=== PATIENT | female | born 1955 | race Caucasian/White ===

== ENCOUNTER → 2019-01-16 09:01 | Outpatient (CLI) | payer MEDICARE, OTHER, SELFPAY ==
--- NOTE | 2019-01-16 09:04 | XR_ITS ---
XR DEXA axial skeleton HISTORY: ITS.REASON: SCCREENING FOR OSTEOPOROSIS,POST MENOPAUSAL ORDERING PHYSICIAN: Sierra Olvera MD PATIENT AGE: 63 years COMPARISON: None FINDINGS: The BMD measured at the Right femoral neck is 0.970 g/cm squared with a T score of -0.5. This is considered Normal according to the World Health Organization criteria. Fracture risk is Low. L1 L4 density has T score 1.6 which is normal.. IMPRESSION: Normal bone density with low fracture risk. Suggest follow-up exam January 2021
== END ==
PROVIDERS: PCP Family Medicine; Visit Provider Emergency Medicine
DX: Z78.0 Asymptomatic menopausal state (principal); Z13.820 Encounter for screening for osteoporosis
CPT/HCPCS: 77080

== ENCOUNTER → 2019-10-10 09:49 | Outpatient (CLI) | payer MEDICARE, OTHER, SELFPAY | PROVIDERS: PCP Family Medicine; Visit Provider Physician Assistant | DX: R00.2 Palpitations (principal) | CPT/HCPCS: 93225; 93226 ==

== ENCOUNTER → 2019-10-30 07:51 | Outpatient (CLI) | payer MEDICARE, OTHER, SELFPAY ==
--- NOTE | 2019-10-30 07:53 | MM_ITS ---
PROCEDURE: MM DIG SCREENING MAMM BI W/CAD CLINICAL INDICATION: SCREENING There is a history of breast cancer in the patient's paternal aunt. COMPARISON: [facility] DIG MAMM-SCREEN [place] from 09/19/2013 [facility] DIG MAMM-SCREEN [place] from 11/07/2014 [facility] DIG MAMM-SCREEN [place] from 12/30/2015 TECHNIQUE: Standard CC and MLO images and 3D Tomosynthesis was obtained. R2 CAD reviewed. FINDINGS: Scattered fibroglandular densities are seen in both breasts on a background of fatty breast parenchyma. There are a few benign-appearing microcalcifications in each breast. There is stable asymmetric glandular tissue upper outer quadrant left breast. There is no suspicious lesion and no suspicious microcalcifications. Rafal images were reviewed. IMPRESSION: Fibrofatty parenchyma with no suspicious lesions seen BI-RAD Category: 2 Benign Finding(s) FOLLOW-UP: 1YR 1 Year Follow-up (A letter has been sent to the patient regarding results of the study.) Dictated by: Dr. Derek Humphrey MD 10/30/2019 12:[address] Derek Humphrey MD in [place] 10/30/2019 12:18
== END ==
PROVIDERS: PCP Family Medicine; Visit Provider Physician Assistant
DX: Z12.31 Encounter for screening mammogram for malignant neoplasm of breast (principal)
CPT/HCPCS: 77063; 77067

== ENCOUNTER → 2019-10-30 08:02 | Outpatient (CLI) | payer SELFPAY ==
--- NOTE | 2019-10-30 08:03 | CT_ITS ---
PROCEDURE: CT HEART W CALCIUM SCORE CLINICAL HISTORY: dyspnea, chest pain COMPARISON: No exams were available for comparison TECHNIQUE: Axial images obtained with sagittal and coronal reformats. All CT scans at the facility use one or more dose reduction, viz: automated exposure control, ma/kV adjustment per patient size (including targeted exams where dose is matched to indication, i.e. head), or iterative reconstruction technique. FINDINGS: The coronary artery calcium score is 7 indicating minimal calcific plaque burden with low cardiovascular disease risk Incidental findings include evidence of old granulomatous disease. There is mild thickening of the distal esophagus and there is a calcified granuloma in the right lung base. IMPRESSION: The coronary artery calcium score is 7 indicating minimal calcific plaque burden with low cardiovascular disease risk Dictated by: Zane Edouard MD 11/01/2019 09:07 Electronically signed by Zane Edouard MD in [place] 11/01/2019 09:07
== END ==
PROVIDERS: PCP Physician Assistant; Visit Provider Internal Medicine Cardiovascular Disease
DX: Z13.6 Encounter for screening for cardiovascular disorders (principal); E11.69 Type 2 diabetes mellitus with other specified complication; E78.5 Hyperlipidemia, unspecified; I10 Essential (primary) hypertension; I45.10 Unspecified right bundle-branch block; R00.2 Palpitations; R06.83 Snoring; R07.9 Chest pain, unspecified; R40.0 Somnolence; R51 Headache; R94.31 Abnormal electrocardiogram [ECG] [EKG]; Z87.891 Personal history of nicotine dependence
CPT/HCPCS: 75571

== ENCOUNTER → 2019-11-02 08:01 | Outpatient (CLI) | payer MEDICARE, OTHER, SELFPAY ==
[2019-11-02 11:21] LABS: Anion Gap 8.6 mEq/L (5-15); Blood Urea Nitrogen 21 mg/dl (7-17); Calcium 9.7 mg/dl (8.4-10.2); Carbon Dioxide 24 mmol/L (22.0-30.0); Chloride 98 mmol/L (98-107); Estimated Glomerular Filt Rate 72 ml/min (>60); GFR (African American) 87 ML/MIN (>60); Glucose 166 mg/dl (74-100); Potassium 4.6 mmoL/L (3.5-5.1); Sodium 126 mmol/L (136-145)
[2019-11-02 11:29] LABS: NT Pro Brain Natriuretic Pep. 22.6 pg/mL (0-125)
== END ==
PROVIDERS: Visit Provider Internal Medicine Cardiovascular Disease
DX: R00.2 Palpitations (principal); R07.9 Chest pain, unspecified; E11.69 Type 2 diabetes mellitus with other specified complication; E78.5 Hyperlipidemia, unspecified; I10 Essential (primary) hypertension; I45.10 Unspecified right bundle-branch block; R06.83 Snoring; R51 Headache; R94.31 Abnormal electrocardiogram [ECG] [EKG]; Z87.891 Personal history of nicotine dependence; R06.09 Other forms of dyspnea; Z79.84 Long term (current) use of oral hypoglycemic drugs
CPT/HCPCS: 36415; 80048; 83880

== ENCOUNTER → 2019-11-06 11:00 | Outpatient (CLI) | payer MEDICARE, OTHER, SELFPAY ==
--- NOTE | 2019-11-07 11:46 | PC.NURSE ---
Patient registered for home sleep study - took device home and reported she could not do it and will not repeat test - no charge for test.
== END ==
PROVIDERS: PCP Family Medicine; Visit Provider Internal Medicine Cardiovascular Disease
DX: G47.33 Obstructive sleep apnea (adult) (pediatric) (principal); R06.83 Snoring; R40.0 Somnolence

== ENCOUNTER → 2019-11-09 06:18 | Outpatient (CLI) | payer MEDICARE, OTHER, SELFPAY ==
--- NOTE | 2019-11-09 06:18 | NM_ITS ---
APPROVED REPORT Exam: Nuclear Stress Test Indication: htn, d.m., hyperlipidemia, fm. hx, sob, fatigue Patient Location: Outpatient Stress Tech: Jenny Stratton [place] Tech:Lolly Doss ARRChana RT(R)(N) Ht: 5 ft 6 in Wt: 213 lbs Bra Size: 42DD HR: 72 bpm BP: 137/77 mmHg BSA: 2.05 m2 BMI: 34.3 History: htn, d.m., hyperlipidemia, fm. hx, sob, fatigue Procedure: Patient exercised on Keagan protocol 5:00 minutes and sec, resting heart rate 72 bpm, resting blood pressure 137/77 mmHg, with exercise maximum heart rate achived was 150 bpm which is Greater than 85 % of the maximum predicted heart rate and blood pressure was 154/82 mmHg. Test was stopped due to Shortness of breath. Patient denied any complaint of chest pain. Patient has Adequate exercise capacity, achieved 7.0 METs of workload on treadmill, the blood pressure response to exercise was Adequate. Electrocardiogram Resting electrocardiogram showed sinus rhythm right ventricular conduction delay, with exercise there is less than 1.[address] segment depression noted from the baseline EKG. The EKG portion of the exercise Myoview is negative for ischemia. Cardiac Stress and Resting SPECT Images: Cardiac Stress and Resting SPECT images were obtained using technetium 99m Myoview 32.8 mCi stress and 10.32 mCi at rest. Gated SPECT with analysis of segmental wall motion and calculation of the ejection fraction also done. Cardiac stress and resting SPECT images show decreased tracer activity involving the anterior anterior apical and apical wall which improves on the resting images suggestive of reversible ischemia, computer derived ejection fraction is 56% with no regional wall motion abnormality, right ventricle is normal size and contractility. This study is technically limited due to patient's body habitus. Conclusion: 1. The EKG portion of the exercise Myoview is negative for ischemia, patient has adequate exercise capacity achieved 7 mets of workload on treadmill, the blood pressure response to exercise was adequate, there was no exercise-induced chest discomfort. Test was stopped due to shortness of breath. 2. Scintigraphic evidence of mild reversible ischemia involving the anterior anterior apical and apical wall, computer derived ejection fraction is 56% with no regional wall motion abnormality, right ventricle is normal size and contractility. 3. Abnormal exercise Myoview study. Electronically signed by : Krishna Holder, 11/09/2019 13:52:54
--- NOTE | 2019-11-09 06:18 | CA_ITS ---
APPROVED REPORT EXAM: Comprehensive 2D, Doppler, and color-flow Echocardiogram Electronic Prepress Operator: Opal Hernandez RDCS Ht: 5 ft 6 in Wt: 212lbs BSA: 2.05 BP: 152/78 mmHg Indications: Abnormal ECG, Shortness of Breath, Palpitations, Hypertension/HDD BUBBLE STUDY Echo Enhancing Agent Indication: Rule Out Septal Defect Agent(s) / Amount(s) Used: Agitated Saline cc Comments: APPEARS NEGATIVE 2D Dimensions LVOT 1.81 cm (M/F) 1.5-2.5 M-Mode Dimensions RVDd 2.28 cm (0.9-2.6) LVDd 5.02 cm (3.5-5.7) LVDs 3.65 cm (3.5-5.7) IVSd 0.91 cm (0.6-1.1) PWd 0.99 cm (0.6-1.1) EF (Teich) 52.80% FS 27.30% EDV (Teich) 119.30 mL ESV (Teich) 56.30 mL LV Diastology E/A Ratio 0.68 Mitral Valve MV A Velocity 71.00 (40-130 cm/s) Left Ventricle Left atrium is mildly enlarged, left ventricle is normal size, mild concentric left ventricular hypertrophy, visually estimated ejection fraction 55% with no regional wall motion abnormality. Grade 1 diastolic dysfunction seen without tissue Doppler evidence of raise left atrial pressure. Right Ventricle Right atrium and right ventricle is normal size and contractility. Atria Intra-atrial septum is intact, there is no flow across the interatrial septum, agitated saline contrast study fails to identify intracardiac shunt. Aortic Valve Aortic valve is minimally thickened and fibrosed, there is no aortic stenosis or aortic insufficiency. Mitral Valve Mitral valve is grossly normal, there is mild mitral regurgitation. Tricuspid Valve Tricuspid valve is grossly normal, there is mild tricuspid regurgitation, tricuspid regurgitation jet velocity is inadequate for calculation of the right ventricular systolic pressure. Pulmonic Valve Pulmonic valve is poorly visualized. Great Vessels Aortic root is normal size. Pericardium No significant pericardial effusion noted. Conclusion 1. Mildly enlarged left atrium, normal left ventricular size, mild concentric left ventricular hypertrophy, visually estimated ejection fraction 55% with no regional wall motion abnormality, grade 1 diastolic dysfunction seen without tissue Doppler evidence of raise left atrial pressure. 2. Mild mitral and tricuspid regurgitation. 3. Agitated saline contrast study fails to identify intracardiac shunt. 4. No significant pericardial effusion noted. Electronically signed by : Krishna Holder, 11/09/2019 14:43:13
--- NOTE | 2019-11-09 06:28 | CA_ITS ---
APPROVED REPORT Exam: Exercise Treadmill Technologist: Irena Salazar, Ht: 5 ft 6 in Wt: 213 lbs BSA: 2.05 m2 HR: 72 bpm BP: 137/77 mmHg Rhythm: NORMAL SINUS RHYTHM,INCOMPLETE RBBB Medical History Medical History: Diabetic ??? Noninsulin, HTN, Hyperlipidemia Medications: Metoprolol,,,,, Metformin,,,,, Losartan,,,,, Atorvastatin,,,,, Glipizide,,,,, Allergies: CIFDINIR Cardiac Risk Factors: HTN, Hyperlipidemia, Diabetes (non-insulin, FHX of CAD Stress Test Details Test: Keagan HR Resting HR: 84 bpm Max Heart Rate (APMHR): 154 bpm Max HR Achieved: 150 bpm Target HR (85% APMHR): 130 bpm % of APMHR: 97 Recovery HR: 88 bpm BP Resting BP: 137.0/77.0 mmHg Max BP: 166.0/56.0 mmHg Recovery BP: 166.0/56.0 mmHg ECG Resting ECG: NORMAL SINUS RHYTHM,INCOMPLETE RBBB Clinical Reason for Termination: Dyspnea Exercise duration: 05:01 min Highest Stage Achieved: Exercise capacity: 7.0 METs Stress ECG Conclusion EXERCISED 5:00 WITH MAX HEART RATE 150 BPM. METS = 7.0. TEST STOPPED DUE TO SOA. NO CHEST PAIN. POSITIVE FOR PVC'S,ONE COUPLET AT PEAK STRESS. <1.5MM ST UPSLOPING SEGMENT DEPRESSION. ABNORMAL TEST. POSITIVE PVC'S/COUPLET. POOR EXERCISE TOLERANCE Test Summary REST . . . . . . . Standing REST . . . . . . . Sitting REST 05:51 0.0 0.0 84 . 137/ 77 . . Stage 1 01:00 10.0 1.7 101 . . . . Stage 1 02:00 10.0 1.7 113 . . . . Stage 1 03:00 10.0 1.7 124 . 154/ 82 . . Stage 2 . . . . . . . Stage held Stage 2 01:00 12.0 2.5 138 . . . . Stage 2 . . . . . . . Cardiolite injected Stage 2 02:00 12.0 2.5 148 . . . . Stage 2 . . . . . . . Stage resumed Stage 2 02:01 12.0 2.5 148 . . . Stop exercise at 05:01 RECOVERY 01:00 0.0 0.0 123 . . . . RECOVERY 02:00 0.0 0.0 102 . . . . RECOVERY 03:00 0.0 0.0 93 . 166/ 56 . . RECOVERY 04:00 0.0 0.0 88 . 166/ 56 . . RECOVERY 05:00 0.0 0.0 85 . 166/ 56 . . RECOVERY 06:00 0.0 0.0 89 . 166/ 56 . . RECOVERY 07:00 0.0 0.0 83 . 131/ 72 . . RECOVERY 08:00 0.0 0.0 0 . 131/ 72 . . RECOVERY 08:24 0.0 0.0 0 . 131/ 72 . . Electronically signed by : Krishna Holder, 11/09/2019 13:40:30
--- NOTE | 2019-11-09 08:42 | HMH.ITSHM ---
Current Home Medications as stated by this patient Nathen Marshall or wine sales representative. [] METOPROLOL LOSARTSAN MELATONIN GLIPIZIDE ATORVASTATIN ASP LEVOTHYROXINE
== END ==
PROVIDERS: PCP Family Medicine; Visit Provider Internal Medicine Cardiovascular Disease
DX: E11.69 Type 2 diabetes mellitus with other specified complication (principal); E78.5 Hyperlipidemia, unspecified; I10 Essential (primary) hypertension; I45.10 Unspecified right bundle-branch block; R00.2 Palpitations; R06.83 Snoring; R07.9 Chest pain, unspecified; R51 Headache; Z87.891 Personal history of nicotine dependence; R94.31 Abnormal electrocardiogram [ECG] [EKG]; Z79.84 Long term (current) use of oral hypoglycemic drugs; R06.00 Dyspnea, unspecified
CPT/HCPCS: 78452; 93017; 93306; A9502

== ENCOUNTER 2019-12-17 08:35 | Day surgery (SDC) | payer MEDICARE, OTHER, SELFPAY ==
[2019-12-17] VITALS (11 sets, daily range): BP systolic 100–161; BP diastolic 48–84; PULSE 57–74; RESP 16–18; TEMP 36.6; O2SAT 92–95; BMI 34.7
--- NOTE | 2019-12-17 | IR_ITS ---
APPROVED REPORT Patient Location: Outpatient Meeting Specialist: ALEJA Vale RT (R) PROCEDURES Left heart catheterization Left ventriculogram Selective coronary angiogram INDICATION Abnormal Myoview, Angina pectoris, Informed consent was obtained prior to the procedure. COMPLICATIONS none Estimated Blood Loss: less than 10 mls TECHNIQUE One percent lidocaine used to anesthetize the right anterior aspect of the wrist. The right radial artery was accessed via the Seldinger technique. A 6 Montserratian sheath was placed in the right radial artery. 2.5 mg of verapamil, 800 mcg of nitroglycerin, 1mg Lidocaine and 5000 U Heparin were given through the arterial sheath. The trap catheter and JL 3 6 Montserratian catheter were used to perform left heart catheterization, left ventriculogram and selective coronary angiogram. At the end of the procedure the sheath was removed good hemostasis was achieved using Traclet band, patient was transferred to the postop holding area in stable condition. ANGIOGRAPHIC RESULTS The left main artery Normal The left anterior descending artery Has proximal and mid vessel 20 and 30% stenoses The circumflex artery Is a large-caliber nondominant vessel and normal The right coronary artery Dominant normal The CHAVIS ventriculogram reveals Preserved at 55% The left ventricular end-diastolic pressure Elevated at 30 mmHg IMPRESSION Wjg-[id number] coronary disease Preserved ejection fraction Moderate to severely elevated LVEDP consistent with advanced diastolic dysfunction PLAN 1. Standard therapy for ischemic heart disease 2. LDL goal less than 55 3. Treatment of moderate to severe diastolic dysfunction using loop diuretics weight loss physical therapy. 4. Recommend sleep study Electronically signed by : Kristian Obando, 12/17/2019 12:13:03
[2019-12-17 09:15] LABS: Basophils # 0.1 K/mm3 (0-0.2); Basophils % 0.7 % (0.1-2.0); Eosinophils # 0.1 K/mm3 (0.0-0.4); Eosinophils % 1.5 % (0.1-12.0); Hemoglobin 12.8 g/dL (14.1-18.0); Lymphocytes # 2.8 K/mm3 (0.7-4.5); Lymphocytes % 31.1 % (10-50); Mean Corpuscular HGB Conc 32.9 g/dL (31.8-35.4); Mean Corpuscular Hemoglobin 29.1 pg (27.0-31.2); Mean Corpuscular Volume 88.5 fl (81-94); Mean Platelet Volume 8.8 fl (7.4-10.4); Monocytes # 0.6 K/mm3 (0.1-1.0); Monocytes % 6.7 % (1.7-9.3); Neutrophils # 5.4 K/mm3 (1.8-7.8); Neutrophils % 59.9 % (37.0-80.0); Platelet Count 251 K/mm3 (142-424); Red Blood Count 4.41 M/mm3 (4.60-6.20); Red Cell Distribution Width 13.9 % (11.5-17.5); White Blood Count 9.1 K/mm3 (4.8-10.8)
[2019-12-17 09:43] LABS: Chloride 103 mmol/L (98-107); Potassium 3.9 mmoL/L (3.5-5.1); Sodium 138 mmol/L (136-145)
[2019-12-17 09:46] LABS: Anion Gap 12.9 mEq/L (5-15); Blood Urea Nitrogen 16 mg/dl (7-20); Calcium 9.2 mg/dl (8.4-10.2); Carbon Dioxide 26 mmol/L (22.0-30.0); Creatinine Clearance Estimated 85 mL/min (50-200); Estimated Glomerular Filt Rate 113 ml/min (>60); GFR (African American) 137 ML/MIN (>60); Glucose 181 mg/dl (74-100)
== END 2019-12-17 15:00 | disposition home or self-care (01) ==
LOC: CATHLAB 08:38
PROVIDERS: PCP Family Medicine; Visit Provider Internal Medicine
DX: I25.118 Atherosclerotic heart disease of native coronary artery with other forms of angina pectoris (principal); I11.0 Hypertensive heart disease with heart failure; I50.30 Unspecified diastolic (congestive) heart failure; E11.9 Type 2 diabetes mellitus without complications; Z79.84 Long term (current) use of oral hypoglycemic drugs; E03.9 Hypothyroidism, unspecified; Z88.8 Allergy status to other drugs, medicaments and biological substances; Z79.82 Long term (current) use of aspirin; Z79.899 Other long term (current) drug therapy
CPT/HCPCS: 80048; 85025; 93458; 99152; C1725; C1769; J1644; Q9967

== ENCOUNTER → 2019-12-31 09:48 | Outpatient (CLI) | payer MEDICARE, OTHER, SELFPAY ==
--- NOTE | 2019-12-31 10:01 | CT_ITS ---
PROCEDURE: CT HEAD/BRAIN WO/W CON CLINICAL INDICATION: headache Right-sided headache COMPARISON: No exams were available for comparison TECHNIQUE: IV Contrast: 100ML OPITRAY 320 Axial images obtained. All CT scans at the facility use one or more dose reduction, viz: automated exposure control, ma/kV adjustment per patient size (including targeted exams where dose is matched to indication, i.e. head), or iterative reconstruction technique. FINDINGS: No midline shift, mass effect, intracranial hemorrhage, hydrocephalus, or extra-axial fluid collection is evident. No enhancing lesions are apparent. The calvarium has an unremarkable appearance. No mastoid effusion. No sinus air-fluid level IMPRESSION: Negative CT head without and with contrast. No acute intracranial findings. Dictated by: Zane Edouard MD 12/31/2019 16:26 Electronically signed by Zane Edouard MD in [place] 12/31/2019 16:26
[2019-12-31 10:14] LABS: Anion Gap 14.5 mEq/L (5-15); Blood Urea Nitrogen 17 mg/dl (7-17); Calcium 9.5 mg/dl (8.4-10.2); Carbon Dioxide 28 mmol/L (22.0-30.0); Chloride 99 mmol/L (98-107); Estimated Glomerular Filt Rate 72 ml/min (>60); GFR (African American) 87 ML/MIN (>60); Glucose 164 mg/dl (74-100); Potassium 4.5 mmoL/L (3.5-5.1); Sodium 137 mmol/L (136-145)
== END ==
PROVIDERS: PCP Family Medicine; Visit Provider Nurse Practitioner Family
DX: I25.10 Atherosclerotic heart disease of native coronary artery without angina pectoris (principal); I51.89 Other ill-defined heart diseases; R51 Headache
CPT/HCPCS: 36415; 70470; 80048; Q9967

== ENCOUNTER → 2020-02-04 10:25 | Outpatient (CLI) | payer MEDICARE, OTHER, SELFPAY ==
[2020-02-04 12:11] LABS: Coronavirus 19 IgG Antibody Negative (Negative); Coronavirus 19 IgM Antibody Negative (Negative)
== END ==
PROVIDERS: Physician Assistant; Visit Provider Internal Medicine Cardiovascular Disease
DX: Z01.818 Encounter for other preprocedural examination (principal)
CPT/HCPCS: 36415; 86328

== ENCOUNTER → 2020-02-05 20:11 | Outpatient (CLI) | payer MEDICARE, OTHER, SELFPAY | PROVIDERS: PCP Family Medicine; Visit Provider Nurse Practitioner Family | DX: I27.20 Pulmonary hypertension, unspecified (principal); R94.30 Abnormal result of cardiovascular function study, unspecified; R06.83 Snoring; R40.0 Somnolence; G47.30 Sleep apnea, unspecified | CPT/HCPCS: 95810 ==

== ENCOUNTER → 2021-01-07 08:16 | Outpatient (CLI) | payer MEDICARE, OTHER, SELFPAY ==
--- NOTE | 2021-01-07 08:19 | MM_ITS ---
PROCEDURE INFORMATION: Exam: MG Screening 3D Mammography Exam date and time: 01/07/2021 8:19 AM Age: 65 years old Clinical indication: Encounter for screening mammogram for malignant neoplasm of breast . Family history of breast carcinoma TECHNIQUE: Imaging protocol: Screening tomosynthesis and 2D mammography including computer-aided detection (CAD) when performed. COMPARISON: 1. MG MM DIG SCREENING MAMM BI W/CAD 10/30/2019 8:03 AM 2. MG DMSB DIG MAMM-SCREEN [place] 12/30/2015 11:17 AM 3. MG DMSB DIG MAMM-SCREEN [place] 11/07/2014 4:30 PM FINDINGS: MAMMOGRAPHY: Breast composition: There are scattered areas of fibroglandular density. Mass: No new suspicious masses. Architectural distortion: No suspicious distortion. Calcifications: No suspicious calcifications. Asymmetric density: None. Skin thickening: None. Axillary adenopathy: None. IMPRESSION: No mammographic evidence of malignancy. Annual screening is recommended unless otherwise clinically indicated. ASSESSMENT: BI-RADS Category 1: Negative
== END ==
PROVIDERS: PCP Family Medicine; Visit Provider Family Medicine
DX: Z12.31 Encounter for screening mammogram for malignant neoplasm of breast (principal)
CPT/HCPCS: 77063; 77067

== ENCOUNTER → 2021-10-05 10:37 | Outpatient (CLI) | payer MEDICARE, OTHER, SELFPAY | PROVIDERS: Visit Provider Nurse Practitioner | DX: U07.1 COVID-19 (principal) | CPT/HCPCS: C9803; U0003; U0005 ==

== ENCOUNTER → 2022-02-05 13:49 | Outpatient (CLI) | payer MEDICARE, OTHER, SELFPAY | PROVIDERS: PCP Family Medicine; Visit Provider Internal Medicine Cardiovascular Disease | DX: E11.9 Type 2 diabetes mellitus without complications (principal); E78.5 Hyperlipidemia, unspecified; G47.33 Obstructive sleep apnea (adult) (pediatric); I10 Essential (primary) hypertension; I25.10 Atherosclerotic heart disease of native coronary artery without angina pectoris; I63.9 Cerebral infarction, unspecified; R06.00 Dyspnea, unspecified; R94.30 Abnormal result of cardiovascular function study, unspecified; Z87.891 Personal history of nicotine dependence; Z79.84 Long term (current) use of oral hypoglycemic drugs | CPT/HCPCS: 93270 ==

== ENCOUNTER → 2022-02-11 12:48 | Outpatient (CLI) | payer MEDICARE, OTHER, SELFPAY ==
--- NOTE | 2022-02-11 12:55 | CA_ITS ---
FINAL REPORT TECHNIQUE: Color Doppler, duplex Doppler and puckett scale sonography of the bilateral neck vasculature was performed. Velocities were measured in the carotid arteries. Stenosis evaluation based on velocity criteria. CLINICAL HISTORY: Dysphasia, stroke, CAD, Diastolic dysfunction FINDINGS: The peak systolic velocity of the right common carotid artery is 96 cm/sec and internal carotid artery 110 cm/sec. The diastolic velocity in the internal carotid artery is 30 cm/sec. The ICA/CCA ratio is 1.5. Visually, a small amount of plaque is seen. These findings are consistent with less than 50% stenosis. The external carotid artery is patent. The right vertebral artery is patent with antegrade flow. The peak systolic velocity of the left common carotid artery is 86 cm/sec and internal carotid artery 88 cm/sec. The diastolic velocity in the internal carotid artery is 99 cm/sec. The ICA/CCA ratio is 1.2. Visually, a small amount of plaque is seen. These findings are consistent with less than 50% stenosis. The external carotid artery is patent. The left vertebral artery is patent with antegrade flow. IMPRESSION: Less than 50% carotid stenosis. Bilateral patent vertebral arteries. If indicated, CTA or MRA could further evaluate. Reviewed, Interpreted and Dictated by Jordi Wade III, MD Transcribed by Rupa iDas Authenticated and [facility]
--- NOTE | 2022-02-11 12:55 | CA_ITS ---
APPROVED REPORT EXAM: Comprehensive 2D, Doppler, and color-flow Echocardiogram Religious Studies Professor: Letty Simon RVT Ht: 5 ft 6 in Wt: 208lbs BSA: 2.03 BP: 11/65 mmHg Indications: CVA,CAD,DD,ABN EKG,DM,EX SMOKER,OBESITY,FATIGUE,HTN,HLD,GERD,HX COVID 2D Dimensions LVOT 2.15 cm (M/F) 1.5-2.5 LA Volume 28.30 mL LA Volume Index 13.94 mL/m2 (M/F) 16-34 M-Mode Dimensions RVDd 1.89 cm (0.9-2.6) LA Diam 3.57 cm (1.9-4.0) LVDd 4.75 cm (3.5-5.7) Ao Diam 2.71 cm (2.0-3.7) LVDs 2.89 cm (3.5-5.7) IVSd 0.71 cm (0.6-1.1) PWd 0.93 cm (0.6-1.1) EF (Teich) 69.60% FS 39.20% EDV (Teich) 104.90 mL TAPSE 2.66 (<1.7) ESV (Teich) 31.90 mL LV Diastology E Decel Time 233.00 (160-240 msec) E/A Ratio 0.8 MED E' 6.20 (< 7 cm/sec) E'/MED E' Ratio 10.10 (>14) LAT E' 7.70 (<10 cm/sec) E/LAT E' Ratio 8.13 (>14) Aortic Valve AO Peak GR. 11.20 mmHg Mitral Valve MV E Max Jagdish. 63.00 (40-130 cm/s) MV A Velocity 80.00 (40-130 cm/s) E/A Ratio 0.78 MV Decel. Time 233.00 (160-240 ms) MV PHT 68.00 ms Pulmonary Valve PV Peak Velocity 101.00 (50-150 cm/s) Tricuspid Valve TR P. Velocity 226.00 cm/s RAP Estimate 10.00 mmHg RVSP 30.50 mmHg Left Ventricle Left atrium is mildly enlarged, left ventricle is normal size, mild concentric left ventricular hypertrophy, estimated ejection fraction 55% with no regional wall motion abnormality, grade 1 diastolic dysfunction seen without tissue Doppler evidence of raise left atrial pressure. Right Ventricle Right atrium and right ventricle are normal size and contractility. Aortic Valve Aortic valve is minimally thickened and fibrosed there is no aortic stenosis or aortic insufficiency. Mitral Valve Mitral valve grossly normal, there is trace mitral regurgitation. Tricuspid Valve Tricuspid valve is grossly normal, there is trace tricuspid regurgitation, tricuspid regurgitation jet velocity is inadequate for calculation of the right ventricular systolic pressure. Pulmonic Valve Pulmonic valve is poorly visualized. Great Vessels Aortic root is normal size. Inferior vena cava normal size with normal inspiratory collapse. Pericardium No significant pericardial effusion noted. Conclusion 1. Mildly enlarged left atrium, normal left ventricular size, mild concentric left ventricular hypertrophy, estimated ejection fraction 55% with no regional wall motion abnormality, grade 1 diastolic dysfunction seen without tissue Doppler evidence of raise left atrial pressure. 2. Trace mitral and tricuspid regurgitation. 3. No significant pericardial effusion. 4. Inferior vena cava normal size with normal inspiratory collapse. Electronically signed by : Krishna Holder MD 02/11/2022 18:27:48
== END ==
PROVIDERS: PCP Family Medicine; Visit Provider Internal Medicine Cardiovascular Disease
DX: E11.9 Type 2 diabetes mellitus without complications (principal); E78.5 Hyperlipidemia, unspecified; G47.33 Obstructive sleep apnea (adult) (pediatric); I10 Essential (primary) hypertension; I25.10 Atherosclerotic heart disease of native coronary artery without angina pectoris; R06.00 Dyspnea, unspecified; R94.30 Abnormal result of cardiovascular function study, unspecified; Z87.891 Personal history of nicotine dependence; R29.90 Unspecified symptoms and signs involving the nervous system; Z79.84 Long term (current) use of oral hypoglycemic drugs; I63.89 Other cerebral infarction
CPT/HCPCS: 93306; 93880

== ENCOUNTER → 2022-03-08 10:24 | Outpatient (CLI) | payer MEDICARE, OTHER, SELFPAY ==
--- NOTE | 2022-03-08 10:27 | MM_ITS ---
PROCEDURE INFORMATION: Exam: MG Bilateral Screening 3D Mammography Exam date and time: 03/08/2022 10:28 AM Age: 66 years old Clinical indication: Screening examination. Her paternal aunt had breast cancer. TECHNIQUE: Imaging protocol: Bilateral Screening tomosynthesis and 2D mammography including computer-aided detection (CAD) when performed. COMPARISON: 1. MG MM DIG SCREENING MAMM BI W/CAD 01/07/2021 8:34 AM 2. MG MM DIG SCREENING MAMM BI W/CAD 10/30/2019 8:03 AM 3. MG DMSB DIG MAMM-SCREEN [place] 12/30/2015 11:17 AM FINDINGS: MAMMOGRAPHY: Breast composition: There are scattered areas of fibroglandular density. Mass: No suspicious mass. Architectural distortion: None. Calcifications: No suspicious calcifications. Asymmetric density: None. Skin thickening: None. Axillary adenopathy: None. IMPRESSION: No mammographic evidence of malignancy. Annual screening is recommended unless otherwise clinically indicated. ASSESSMENT: BI-RADS Category 1: Negative
== END ==
PROVIDERS: PCP Family Medicine; Visit Provider Family Medicine
DX: Z12.31 Encounter for screening mammogram for malignant neoplasm of breast (principal)
CPT/HCPCS: 77063; 77067

== ENCOUNTER 2022-06-07 16:04 | Emergency (ER) | payer MEDICARE, OTHER, SELFPAY ==
[2022-06-07 16:40] VITALS: BP 124/75; PULSE 81; RESP 20; TEMP 36.8; O2SAT 98; BMI 32.3
--- NOTE | 2022-06-07 16:51 | EXP.UTC ---
Discharge Plan Disposition Patient Disposition: Home, Self-Care Condition: Good Prescriptions Prescriptions: No Action atorvastatin 40 mg tablet 80 mg PO DAILY Label Comments: TAKE 1 TABLET BY MOUTH ONCE A DAY AT BEDTIME diphenhydramine HCl [Allergy (diphenhydramine)] 25 mg tablet 25 mg PO HS losartan 100 mg tablet 100 mg PO DAILY Qty: 90 5RF metoprolol succinate [Toprol XL] 50 mg tablet extended release 24 hr 50 mg PO QHS Qty: 90 3RF cholecalciferol (vitamin D3) 25 mcg (1,000 unit) capsule 25 mcg PO DAILY vitamin B lcwxte-F-ES-zinc cit 0.8-50 mg tablet 1 tab PO DAILY aspirin 81 mg tablet,delayed release (DR/EC) 81 mg PO DAILY omega 9-nhb-sxr-fish oil [Fish Oil] 1,000 mg (120 mg-180 mg) capsule 1 cap PO DAILY lysine 1,000 mg tablet 1,000 mg PO DAILY esomeprazole magnesium [Nexium] 20 mg capsule,delayed release(DR/EC) 20 mg PO DAILY melatonin 10 mg capsule 10 mg PO HS PRN metformin 1,000 mg tablet 1,000 mg PO BID Label Comments: TAKE 1 TABLET BY MOUTH TWICE A DAY ascorbic acid (vitamin C) 1,000 mg tablet 1 g PO DAILY levothyroxine 25 mcg tablet 50 mcg PO DAILY Label Comments: take 1 tablet by mouth once daily glipizide 5 mg tablet 10 mg PO DAILY Label Comments: TAKE 1 TABLET BY MOUTH ONCE DAILY spironolactone 25 mg tablet 25 mg PO DAILY Qty: 90 3RF furosemide 20 mg tablet 20 mg PO DAILY Qty: 90 3RF Referrals Follow up/Referrals: Timothy Asencio MD [Primary Care Provider] - See instructions Activity Restrictions/Add. Instructions Additional Instructions/Restrictions: *Monitor Temp, Over the counter Motrin or Tylenol as directed/as needed Tylenol every 4 hours and Motrin every 6 hours (as long as your family doctor has told you that you can take it) for fever or pain. and straight to ER if unable to lower temp less than 101.0 after medication given *Warm salt water gargles may help to soothe the throat *Throat Lozenges? *Warm fluids like tea with honey may help to soothe the throat? *Sleep elevated *Humidifier/Vaporizer Follow up IMMEDIATELY for new or worsening symptoms or no Noticeable improvement over the next 48-72 hours. 911 for difficulty breathing or swallowing You were tested for today for COVID19 your test result should be back in the next 24-48 hours, you may check your results on the [facility] My Health Portal Make sure to take your Vitamins Vit. C Vit D and Zinc if you can take them Clinical Impressions Clinical Impression: Encounter for laboratory testing for COVID-19 virus Stand Alone Forms Stand Alone Forms: Work/School Release Instructions Patient Instructions: Coronavirus Disease 2019, COVID-19 Viral Test, Preventing the Spread of Coronavirus Discharge Instructions Discharge ED Provider: Lily Oakley [facility] General Stated complaint: covid test Time Seen by Provider: 06/07/22 16:51 History of Present Illness Provider Complaint: Patient states that she has been with her sister that had a positive home test for COVID so she wanted to get tested States that she thinks she may have had some symptoms last week but not having any right now Related Data Home Medications Medication Instructions Recorded Confirmed aspirin 81 mg tablet,delayed 81 mg PO DAILY 10/05/19 03/26/22 release esomeprazole magnesium 20 mg 20 mg PO DAILY 10/05/19 03/26/22 capsule,delayed release (Nexium) lysine 1,000 mg tablet 1,000 mg PO DAILY 10/05/19 03/26/22 melatonin 10 mg capsule 10 mg PO HS PRN 10/05/19 03/26/22 omega 6-dhu-woa-fish oil 1,000 mg 1 cap PO DAILY 10/05/19 03/26/22 (120 mg-180 mg) capsule (Fish Oil) vitamin B complex with C-folic 1 tab PO DAILY 10/05/19 03/26/22 acid 0.8 mg-zinc citrate 50 mg tablet ascorbic acid (vitamin C) 1,000 mg 1 g PO DAILY 10/26/19 03/26/22 tablet metformin 1,000 mg tablet 1,000 mg PO BID
[2022-06-07 16:58] VITALS: BP 124/75; PULSE 81; RESP 20; TEMP 36.8; O2SAT 98
== END 2022-06-07 17:02 | disposition home or self-care (01) ==
PROVIDERS: Emergency Provider Nurse Practitioner; PCP Family Medicine
DX: U07.1 COVID-19 (principal); R07.9 Chest pain, unspecified; R00.2 Palpitations; R94.31 Abnormal electrocardiogram [ECG] [EKG]; E11.9 Type 2 diabetes mellitus without complications; R51.9 Headache, unspecified; I10 Essential (primary) hypertension; E78.5 Hyperlipidemia, unspecified; I45.10 Unspecified right bundle-branch block; G47.33 Obstructive sleep apnea (adult) (pediatric); Z79.84 Long term (current) use of oral hypoglycemic drugs; Z79.899 Other long term (current) drug therapy; Z88.8 Allergy status to other drugs, medicaments and biological substances; Z87.891 Personal history of nicotine dependence
CPT/HCPCS: 99213; C9803; G0463; U0003; U0005

== ENCOUNTER → 2023-01-20 14:16 | Outpatient (CLI) | payer MEDICARE, OTHER, SELFPAY ==
--- NOTE | 2023-01-20 14:28 | XR_ITS ---
FINAL REPORT CLINICAL HISTORY: LT ANKLE INJURY COMPARISON: None FINDINGS: Three views of the left ankle show no evidence of acute displaced fracture or dislocation of the visualized bony architecture. Mild degenerative changes. Mild calcaneal spurring. IMPRESSION: Degenerative changes with no acute bony abnormality. Reviewed, Interpreted and Dictated by Timothy Perla MD Transcribed by Neeru Baugh Authenticated and [facility]
--- NOTE | 2023-01-20 14:28 | XR_ITS ---
FINAL REPORT CLINICAL HISTORY: Rt 5th digit pain COMPARISON: None FINDINGS: Two views of the right 5th digit show an avulsion fracture of the dorsal plate of the 1st proximal phalanx base. There is up to 2 mm of displacement. There are moderate degenerative changes of the MCP and IP joints. IMPRESSION: Avulsion fracture of 1st proximal phalanx 5th digit. Reviewed, Interpreted and Dictated by Timothy Perla MD Transcribed by Neeru Baugh Authenticated and [facility]
--- NOTE | 2023-01-20 14:28 | XR_ITS ---
FINAL REPORT CLINICAL HISTORY: LT FOOT INJURY COMPARISON: None FINDINGS: Three views of the left foot show no evidence of acute displaced fracture or dislocation of the visualized bony architecture. There are scattered degenerative changes. IMPRESSION: No acute bony abnormality. Reviewed, Interpreted and Dictated by Timothy Perla MD Transcribed by Neeru Baugh Authenticated and [facility]
== END ==
PROVIDERS: PCP Family Medicine; Visit Provider Physician Assistant
DX: M25.572 Pain in left ankle and joints of left foot (principal); S99.912A Unspecified injury of left ankle, initial encounter; M25.531 Pain in right wrist; S69.91XA Unspecified injury of right wrist, hand and finger(s), initial encounter
CPT/HCPCS: 73140; 73610; 73630

== ENCOUNTER → 2023-02-04 11:55 | Outpatient (CLI) | payer MEDICARE, OTHER, SELFPAY ==
--- NOTE | 2023-02-04 12:05 | XR_ITS ---
FINAL REPORT CLINICAL HISTORY: pain of fifth digit of right hand after fall COMPARISON: 01/20/2023 FINDINGS: Right 5th finger Three views were obtained. There is avulsion fracture of the proximal dorsal aspect of the 5th middle phalanx. The bony alignment is stable. There are moderate degenerative changes. IMPRESSION: Fracture as above. Reviewed, Interpreted and Dictated by Jordi Wade III, MD Transcribed by Regine Carter Authenticated and [facility]
== END ==
PROVIDERS: PCP Family Medicine; Visit Provider Physician Assistant
DX: M79.644 Pain in right finger(s) (principal); S69.91XD Unspecified injury of right wrist, hand and finger(s), subsequent encounter
CPT/HCPCS: 73140

== ENCOUNTER → 2023-04-21 12:14 | Outpatient (CLI) | payer MEDICARE, OTHER, SELFPAY ==
[2023-04-21 13:43] LABS: Alanine Aminotransferase 22 U/L (12-78); Albumin Level 4.6 g/dl (3.5-5.0); Alkaline Phosphatase 98 U/L (38-126); Aspartate Amino Transferase 25 U/L (14-36); Bilirubin,Indirect 0.2 mg/dL (0.0-0.9); Bilirubin,Total 0.2 mg/dl (0.2-1.3); Bilirubin,Unconjugated 0.5 mg/dL (0.0-1.1); Chol/HDL Ratio 4.5 (1-3.5); Cholesterol 136 mg/dl (140-200); HDL Cholesterol 30 mg/dl (40-60); Total Protein,Serum 7.4 g/dl (6.3-8.2); Triglycerides 285 mg/dl (30-150); VLDL Cholesterol 57 mg/dL (0-40)
[2023-04-21 13:54] LABS: Direct LDL Cholesterol 64.85 mg/dL (100-129)
== END ==
PROVIDERS: PCP Family Medicine; Visit Provider Internal Medicine
DX: E11.9 Type 2 diabetes mellitus without complications (principal); E78.5 Hyperlipidemia, unspecified; I25.10 Atherosclerotic heart disease of native coronary artery without angina pectoris; R94.30 Abnormal result of cardiovascular function study, unspecified; Z79.84 Long term (current) use of oral hypoglycemic drugs
CPT/HCPCS: 36415; 80061; 80076

== ENCOUNTER → 2023-04-26 07:48 | Outpatient (CLI) | payer MEDICARE, OTHER, SELFPAY ==
--- NOTE | 2023-04-26 07:53 | MM_ITS ---
PROCEDURE INFORMATION: Exam: MG Bilateral Screening 3D Mammography Exam date and time: 04/26/2023 7:47 AM Age: 67 years old Clinical indication: Screening mammogram TECHNIQUE: Imaging protocol: Bilateral Screening tomosynthesis and 2D mammography including computer-aided detection (CAD) when performed. COMPARISON: 1. MG MM DIG SCREENING MAMM BI W/CAD 03/08/2022 10:28 AM 2. MG MM DIG SCREENING MAMM BI W/CAD 01/07/2021 8:34 AM 3. MG MM DIG SCREENING MAMM BI W/CAD 10/30/2019 8:03 AM 4. MG DMSB DIG MAMM-SCREEN [place] 12/30/2015 11:17 AM FINDINGS: MAMMOGRAPHY: Breast composition: There are scattered areas of fibroglandular density. Mass: None. Architectural distortion: No new or suspicious architectural distortion. Calcifications: No new or suspicious calcifications are present Asymmetric density: No new or suspicious asymmetric density is present Skin thickening: None. Axillary adenopathy: None. IMPRESSION: No mammographic evidence of malignancy. Recommend annual screening mammography unless otherwise clinically indicated. ASSESSMENT: BI-RADS category 1: Negative
== END ==
PROVIDERS: PCP Family Medicine; Visit Provider Family Medicine
DX: Z12.31 Encounter for screening mammogram for malignant neoplasm of breast (principal)
CPT/HCPCS: 77063; 77067

== ENCOUNTER 2024-02-13 09:27 | Outpatient (CLI) | payer MEDICARE, OTHER, SELFPAY ==
--- NOTE | 2024-02-13 09:33 | XR_ITS ---
FINAL REPORT TECHNIQUE: Bone mineral density was calculated of the lumbar spine and hip. CLINICAL HISTORY: OSTEOPENIA FINDINGS: Using L1-4, the bone mineral density of the spine is 1.339 g/cm2, corresponding to T-score of 1.7. Using the left hip, the bone mineral density of the femoral neck is 0.83 g/cm2, corresponding to a T-score of 0.3. Using the right hip, the bone mineral density of the femoral neck is 0.894 g/cm?, corresponding to a T-score of 0.4. NOTE: T-score: Standard deviation compared with peak bone mass of young adult mean. *Following the recommendations of the International Society of Bone densitometry, classification of hip BMD is based on the lower of two T-scores; total hip or femoral neck. IMPRESSION: Normal bone mineral density of the lumbar spine and bilateral hips. Reviewed, Interpreted and Dictated by Jordi Wade III, MD Transcribed by Corinna Wilson Authenticated and [facility]
== END 2024-02-13 23:59 | disposition home or self-care (01) ==
LOC: RAD 09:28
PROVIDERS: PCP Family Medicine; Visit Provider Family Medicine
DX: M85.89 Other specified disorders of bone density and structure, multiple sites (principal)
CPT/HCPCS: 77080

== ENCOUNTER 2024-05-21 09:52 | Outpatient (CLI) | payer MEDICARE, OTHER, SELFPAY ==
--- NOTE | 2024-05-21 09:55 | US_ITS ---
FINAL REPORT TECHNIQUE: Ultrasound images of the kidneys and bladder were obtained. CLINICAL HISTORY: SCREENING COMPARISON: None FINDINGS: The right kidney measures 9.9 cm in length. It is normal in echogenicity. There is no hydronephrosis. The left kidney measures 9.5 cm in length. It is normal in echogenicity. There is no hydronephrosis. IMPRESSION: Normal-sized kidneys without evidence of hydronephrosis or focal mass. Reviewed, Interpreted and Dictated by Jordi Wade III, MD Transcribed by Corinna Wilson Authenticated and [facility]
--- NOTE | 2024-05-21 09:57 | MM_ITS ---
PROCEDURE INFORMATION: Exam: MG Bilateral Screening 3D Mammography Exam date and time: 05/21/2024 10:29 AM Age: 68 years old Clinical indication: Screening examination TECHNIQUE: Imaging protocol: Bilateral Screening tomosynthesis and 2D mammography including computer-aided detection (CAD) when performed. COMPARISON: 1. MG MM DIG SCREENING MAMM BI W/CAD 04/26/2023 7:47 AM 2. MG MM DIG SCREENING MAMM BI W/CAD 03/08/2022 10:28 AM FINDINGS: MAMMOGRAPHY: Breast composition: There are scattered areas of fibroglandular density. Mass: None. Architectural distortion: None. Calcifications: No suspicious calcifications. Asymmetric density: None. Skin thickening: None. Axillary adenopathy: None. Other findings: A loop recorder device projects over the medial left breast at the posterior depth. This obscures underlying breast tissue. IMPRESSION: No mammographic evidence of malignancy. Annual screening is recommended unless otherwise clinically indicated. ASSESSMENT: BI-RADS Category 1: Negative.
== END 2024-05-21 23:59 | disposition home or self-care (01) ==
LOC: RAD 09:52
PROVIDERS: PCP Family Medicine; Visit Provider Family Medicine
DX: Z12.31 Encounter for screening mammogram for malignant neoplasm of breast (principal); N28.9 Disorder of kidney and ureter, unspecified
CPT/HCPCS: 76770; 77063; 77067

== ENCOUNTER 2024-08-17 09:26 | Inpatient (IN) | payer MEDICARE, OTHER, SELFPAY ==
[2024-08-17] VITALS (28 sets, daily range): BP systolic 88–154; BP diastolic 48–87; PULSE 55–87; RESP 14–24; TEMP 36.5–36.7; O2SAT 92–100; BMI 34.3; BMI 33.0; BMI 31.4
--- NOTE | 2024-08-17 09:27 | ECG_ITS ---
APPROVED REPORT Exam: Resting ECG HR:63 bpm ECG Measurements Heart Rate 63 AXES MT 106 P 24 QRSd 114 QRS -49 QT 424 T 28 QTc 430 Conclusion LOW QRS VOLTAGE IN PRECORDIAL LEADS [QRS DEFLECTION < 1.0 mV IN CHEST LEADS] PATTERN CONSISTENT WITH PULMONARY DISEASE RIGHT BUNDLE BRANCH BLOCK [120+ ms QRS DURATION, UPRIGHT V1, 40+ ms S IN I/aVL/V4/V5/V6] LEFT ANTERIOR FASCICULAR BLOCK [QRS AXIS <= -45, QR IN I, RS IN II] MARKED ST ELEVATION, CONSIDER SEPTAL INJURY [MARKED ST ELEVATION W/O NORMALLY INFLECTED T-WAVE IN V1/V2] ACUTE MT UNCONFIRMED REPORT Electronically signed by : SAGAR COLBERT, 08/19/2024 04:34:58
--- NOTE | 2024-08-17 09:31 | IR_ITS ---
APPROVED REPORT Patient Location: [employer] [employer] Specialist: ALEJA Vale RT (R) PROCEDURES Selective coronary angiogram Mechanical thrombectomy to the proximal LAD Intravascular ultrasound to the proximal LAD Drug-eluting stent deployment to the proximal mid LAD in a contiguous manner Informed consent was obtained prior to the procedure. COMPLICATIONS None Estimated Blood Loss: Less than 10 mls TECHNIQUE One percent lidocaine used to anesthetize the right anterior aspect of the wrist. The right radial artery was accessed via the Seldinger technique. A 6 Guamanian sheath was placed in the right radial artery. 2.5 mg of Verapamil, 800 mcg of nitroglycerin, 1mg Lidocaine and 5000 U Heparin were given through the arterial sheath. The papa catheter was also used to perform selective coronary angiogram. Therapeutic heparin was administered during the cocktail and the guide catheter was placed in the left main artery followed by Choice PT extra-support wire placed down the LAD. Mechanical penumbra thrombectomy catheter was advanced which failed to restore ZEE-3 flow. A 3 mm x 15 mm balloon was then deployed at 15 bhargav also failing to restore flow. At this point a 3.5 x 12 mm [place] frontier stent was deployed at 15 bhargav reducing the stenosis and then restoring ZEE III flow. An additional 3 mm x 38 mm stent was deployed distal to the for stent yet still overlapping however this required the assistance of a guide liner in order to deliver. The stent was delivered at 15 bhargav. Following this intravascular ultrasound probe was advanced which could not be delivered beyond the midportion of the proximal LAD stent. A 3.5 x 12 mm noncompliant balloon was deployed at 18 bhargav in the proximal and midportion of the 3.5 mm stent which overlapped the 3 mm stent. ZEE 0 flow was present at the beginning of the procedure with ZEE-3 flow at the end of the procedure. Because of the large thrombus burden Integrilin was started. At the end of the procedure the apparatus was removed the sheath was removed and hemostasis was achieved using TR banding patient was transferred to the postop putting in stable condition ANGIOGRAPHIC RESULTS The left main artery Normal The left anterior descending artery Initially proximally thrombosed. Following revascularization the LAD was widely patent with widely patent stents in the proximal and mid segment in a contiguous manner The circumflex artery Large dominant normal The right coronary artery Nondominant normal The CHAVIS ventriculogram reveals Not performed The left ventricular end-diastolic pressure Not measured IMPRESSION Proximal thrombosis to the LAD which acted more like a chronic thrombus embolization rather than plaque rupture Successful stenting of the proximal to mid LAD 100% occlusion reduced to 0% with 2 contiguous drug-eluting stents PLAN 1. Switch Eliquis to Xarelto and stressed compliance with this medicine 2. Aspirin and Plavix combined with Xarelto for the next 30 days then after 30 days discontinue aspirin and continue with Plavix and Xarelto 3. Echocardiogram 4. Supportive care 5. Repeat echocardiogram Tuesday morning and if ejection fraction is 35% or less evaluate for LifeVest placement 6. Entresto and beta-blockers once hemodynamically stable 7. LDL less than 55 to be achieved with high intensity statin Electronically signed by : Kristian Obando MD 08/17/2024 10:54:58
--- NOTE | 2024-08-17 09:31 | HMH.EDCP ---
Discharge Plan Disposition Patient Disposition: Admitted Condition: Serious Chief Complaint: Chest Pain Prescriptions Prescriptions: No Action diphenhydramine HCl [Allergy (diphenhydramine)] 25 mg tablet 25 mg PO HS losartan 100 mg tablet 100 mg PO DAILY Qty: 90 3RF metoprolol succinate [Toprol XL] 50 mg tablet extended release 24 hr 50 mg PO QHS Qty: 90 3RF spironolactone 25 mg tablet 25 mg PO DAILY Qty: 90 3RF atorvastatin [Lipitor] 80 mg tablet 80 mg PO DAILY Qty: 90 3RF aspirin 81 mg tablet,delayed release (DR/EC) 81 mg PO DAILY omega 4-kcd-alx-fish oil [Fish Oil] 1,000 mg (120 mg-180 mg) capsule 1 cap PO DAILY lysine 1,000 mg tablet 1,000 mg PO DAILY melatonin 10 mg capsule 10 mg PO HS PRN metformin 1,000 mg tablet 1,000 mg PO BID Patient Comments: TAKE 1 TABLET BY MOUTH TWICE A DAY levothyroxine 25 mcg tablet 50 mcg PO DAILY Patient Comments: take 1 tablet by mouth once daily glipizide 5 mg tablet 10 mg PO DAILY Patient Comments: TAKE 1 TABLET BY MOUTH ONCE DAILY acetaminophen 500 mg capsule 500 mg PO Q6H PRN cyanocobalamin (vitamin B-12) 1,000 mcg capsule 1,000 mcg PO DAILY Eliquis 5 mg tablet 5 mg PO ONCE Referrals Follow up/Referrals: Provider,Referral, MD [Primary Care Provider] - See instructions Clinical Impressions Clinical Impression: CAD (coronary artery disease), Abnormal EKG, Chest pain Print Language Print Language: Luxembourger Discharge ED Provider: Mc Jama HPI General Stated Complaint: Chest Pain Time Seen by Provider: 08/17/24 09:31 History of Present Illness HPI narrative: 69-year-old female presents via EMS for chest pain with concern of STEMI from outside EKG in the field. Per patient and EMS report patient chest pain started around 8 AM while talking to an insurance person on the phone. Pain described as located in center of chest and at 1 point was rating to her back, denied back pain at time of my talking to her. Past medical history type 2 diabetes, loop monitor implanted in chest, no known history of CAD per patient, no prior stents. Patient has history of CVA for which she is on 81 mg aspirin daily as well as Plavix. Loop monitor is in place with concern for possible atrial fibrillation however has not received definitive diagnosis. Patient took 4 baby aspirin prior to arrival. Airway breathing circulation intact on arrival. Hemodynamically stable on arrival. Related Data Home Medications ?Medication ?Instructions ?Recorded ?Confirmed aspirin 81 mg tablet,delayed 81 mg PO DAILY 10/05/19 07/24/24 release lysine 1,000 mg tablet 1,000 mg PO DAILY 10/05/19 07/24/24 melatonin 10 mg capsule 10 mg PO HS PRN 10/05/19 07/24/24 omega 5-wmz-rhe-fish oil 1,000 mg 1 cap PO DAILY 10/05/19 07/24/24 (120 mg-180 mg) capsule (Fish Oil) metformin 1,000 mg tablet 1,000 mg PO BID 10/26/19 07/24/24 levothyroxine 25 mcg tablet 50 mcg PO DAILY 01/23/21 07/24/24 diphenhydramine HCl 25 mg tablet 25 mg PO HS 07/24/21 07/24/24 (Allergy (diphenhydramine)) glipizide 5 mg tablet 10 mg PO DAILY 02/05/22 07/24/24 acetaminophen 500 mg capsule 500 mg PO Q6H PRN 07/21/23 07/24/24 cyanocobalamin (vitamin B-12) 1,000 mcg PO DAILY 07/21/23 07/24/24 1,000 mcg capsule apixaban 5 mg tablet (Eliquis) 5 mg PO ONCE 07/24/24 07/24/24 Previous Rx's ?Medication ?Instructions ?Recorded atorvastatin 80 mg tablet (Lipitor) 80 mg PO DAILY #90 tabs 01/19/24 losartan 100 mg tablet 100 mg PO DAILY #90 tabs 01/19/24 metoprolol succinate 50 mg 50 mg PO QHS #90 tabs 01/19/24 tablet,extended release 24 hr (Toprol XL) spironolactone 25 mg tablet 25 mg PO DAILY Fluid #90 tabs 01/19/24 Allergies Allergy/AdvReac Type Severity Reaction Status Date / Time cefdinir Allergy Unknown Verified 07/24/24 13:04 [facility] Disclaimer: The information contained in this section may have been updated after the patient was seen, as this information can be updated by other users. Medical History ALMA (obstructive sleep apnea) Dyspnea Snoring Daytime somnolence Headache Right bundle branch block HLD (hyperlipidemia) HTN (hypertension) Diabetes mellitus Ex-smoker Palpitations Abnormal EKG Chest pain Social History Smoking Status: Former smoker alcohol intake: never substance use type: denies use current occupational status: other Travel in the last 8 weeks: Inside the [place] household members: none housing: house Other Medical History Have you received the Flu Vaccine for this season: No Have you received the Pneumonia Vaccine: Yes ROS Obtained: Yes Systems reviewed as appropriate & no additional complaints except as documented Physical Exam General General appearance: alert and in no apparent distress Head Head exam: atraumatic and normocephalic Eye Eye exam: Present normal appearance and EOMI ENT ENT exam: Present normal exam Neck Neck exam: Present normal inspection Chest Chest inspection: Present normal inspection and symmetric chest wall rise Respiratory Respiratory exam: Present normal lung sounds bilaterally Cardiovascular Cardiovascular exam: Present regular rate, normal rhythm and normal heart sounds Abdominal Exam Abdominal exam: Present soft and normal bowel sounds; Absent distention, tenderness, guarding or rebound Extremities Exam Extremities exam: Present normal inspection and full ROM; Absent tenderness Back Exam Back exam: Present normal inspection Neurological Exam Neurological exam: Present alert and oriented X3 Psychiatric Psychiatric exam: Present normal affect and normal mood Skin Skin exam: Present warm, dry, intact and normal color; Absent rash HEART Score HEART Score HEART Score assessment performed?: No Critical Care Critical Care Time Critical Care Time: Yes Attestation: On 08/17/24, the high probability of a clinically significant, sudden or life threatening deterioration of the following system(s) required my full and direct attention, intervention and personal management. The time I documented below is in addition to time spent performing reported procedures but includes the following listed in this critical care notation. Total Time Total Critical Care Time: 20 Medical Decision Making Medical Records Medical records reviewed: Yes I reviewed the patient's medical records. Juancarlos Inquiry Pt receiving controlled substance: No Response Orders (Tests/Meds): ED MEDICATIONS Generic Name Dose Route Start Last Admin Trade Name Freq PRN Reason Stop Dose Admin Fentanyl Citrate 50 mcg 08/17/24 09:30 Fentanyl 100mcg/2ml Vial IV 08/17/24 21:31 Q3MINP PRN Sedation Fentanyl Citrate 25 mcg 08/17/24 09:30 Fentanyl 100mcg/2ml Vial IV 08/17/24 21:31 Q3MINP PRN Sedation Flumazenil 0.2 mg 08/17/24 09:30 Flumazenil 0.1mg/Ml 5ml Vial IV 08/17/24 21:31 NEEDED PRN Sedation Heparin Sodium (Porcine) 10,000 unit 08/17/24 09:30 Heparin 1,000 Units/Ml 10ml Vial (Dictating Machine Typist) IV 08/17/24 13:31 NEEDED PRN [employer] Hydralazine HCl 20 mg 08/17/24 09:30 Hydralazine 20mg/Ml Vial IV 08/17/24 13:31 ONCE PRN sbp>160 Adenosine 180 mg/ Sodium 90 mls @ 0 mls/hr 08/17/24 09:30 Chloride IV 08/17/24 13:31 ONCE PRN fractional flow reserve 180 MCG/KG/MIN Adenosine 90 mg/ Sodium 90 mls @ 0 mls/hr 08/17/24 09:30 Chloride IV 08/17/24 13:31 ONCE PRN fractional flow reserve 180 MCG/KG/MIN Sodium Chloride 1,000 mls @ 25 mls/hr 08/17/24 09:30 Sod Chloride 0.9% 500ml Bag IV 08/18/24 09:31 .Q25H NALLELY Labetalol HCl 20 mg 08/17/24 09:30 Labetalol 20mg/4ml Syringe IV 08/17/24 13:31 ONCE PRN sbp>160 Midazolam HCl 1 mg 08/17/24 09:30 Midazolam Hcl 1mg/Ml 5ml Vial IV 08/17/24 21:31 Q3MINP PRN Sedation Midazolam HCl 1 mg 08/17/24 09:30 Midazolam 2mg/2ml Vial IV 08/17/24 21:31 Q3MINP PRN Sedation Naloxone HCl 0.4 mg 08/17/24 09:30 Naloxone 0.4mg/Ml Vial IV 08/17/24 21:31 Q5MINP PRN Decreased Respirations Nitroglycerin 800 mcg 08/17/24 09:30 Nitroglycerin 800mcg/8ml Syr (Dictating Machine [employer]ist) IA 08/17/24 13:31 NEEDED PRN [employer] Protamine Sulfate 50 mg 08/17/24 09:30 Protamine Sulfate 50mg/5ml Vial (Dictating Machine [employer]ist) IV 08/17/24 13:31 ONCE PRN act>200 Discontinued Medications Generic Name Dose Route Start Last Admin Trade Name Melanie PRN Reason Stop Dose Admin Diphenhydramine HCl 50 mg 08/17/24 09:30 Diphenhydramine 50mg/Ml Vial IV 08/17/24 09:31 ONCE ONE Heparin Sodium/Sodium Chloride 3,000 unit 08/17/24 09:30 Heparin 1,000 Units/500ml Ns ([employer]ating [employer]ist) IV 08/17/24 09:31 ONCE ONE Lidocaine HCl 20 ml 08/17/24 09:30 Lidocaine 1% 10ml Mdv IJ 08/17/24 09:31 ONCE ONE Lidocaine HCl 20 ml 08/17/24 09:30 Lidocaine 1% 5ml Pf Vial IJ 08/17/24 09:31 ONCE ONE Verapamil HCl 2.5 mg 08/17/24 09:30 Verapamil 2.5mg/Ml 2ml Vial IV 08/17/24 09:31 ONCE ONE ORDERS Category Date Time Status Basic Metabolic Panel Stat Lab 08/17/24 09:20 Received Complete Blood Count Auto Diff Stat Lab 08/17/24 09:20 Received ECG Data Tracing #1: Attestation: I reviewed this ECG and interpreted as documented below: ECG Narrative: Normal sinus rhythm, ST elevations noted in leads I, aVF, V2, reciprocal depressions in inferior leads. High concern for STEMI. Dictating Machine Typist activated MDM Narrative Medical Decision Narrative: Patient with history and exam per above presenting for evaluation of chest pain with EKG from EMS with concern for STEMI Diagnoses considered include STEMI, CAD, angina EKG obtained immediately on arrival. Patient vitals hemodynamically stable. EKG interpretation as above, high concern for STEMI. Dictating Machine Typist activated, cardiology agrees with high concern for STEMI take patient taken immediately to D[employer]ating [employer]ist upon arrival. Patient hemodynamically stable at time of going to Dictating Machine Typist. My clinical impression at this time is most consistent with chest pain, STEMI I discussed my clinical impression with patient and answered all questions. At this time, the evidence for any other entities in the differential is insufficient to warrant any further testing or ED observation. This was explained to the patient. The patient was advised that persistent or worsening symptoms require further evaluation.
[2024-08-17 09:37] LABS: Basophils # 0.1 K/mm3 (0-0.2); Eosinophils # 0.3 K/mm3 (0.0-0.4); Eosinophils % 1.9 % (0.1-12.0); Hematocrit 39.1 % (37.0-47.0); Hemoglobin 12.7 g/dL (12.2-16.2); Lymphocytes # 4.3 K/mm3 (0.7-4.5); Lymphocytes % 31.9 % (10-50); Mean Corpuscular HGB Conc 32.4 g/dL (31.8-35.4); Mean Corpuscular Hemoglobin 30.7 pg (27.0-31.2); Mean Corpuscular Volume 94.6 fl (81-99); Mean Platelet Volume 10.1 fl (7.4-10.4); Monocytes # 0.8 K/mm3 (0.1-1.0); Monocytes % 6.1 % (1.7-9.3); Neutrophils % 59.2 % (37.0-80.0); Platelet Count 272 K/mm3 (142-424); Red Blood Count 4.13 M/mm3 (4.20-5.40); Red Cell Distribution Width 13.9 % (11.5-17.5); White Blood Count 13.6 K/mm3 (4.8-10.8)
[2024-08-17 09:45] LABS: Chloride 106 mmol/L (98-107); Sodium 138 mmol/L (136-145)
[2024-08-17 09:46] LABS: Potassium 4.3 mmoL/L (3.5-5.1)
[2024-08-17 09:48] LABS: Anion Gap 16.3 mEq/L (5-15); Blood Urea Nitrogen 29 mg/dl (7-17); Carbon Dioxide 20 mmol/L (22.0-30.0); Creatinine Clearance Estimated 47 mL/min (50-200); Estimated Glomerular Filt Rate 32 ml/min (>60); GFR (African American) 38 ML/MIN (>60)
[2024-08-17 09:49] LABS: Calcium 9.2 mg/dl (8.4-10.2); Glucose 265 mg/dl (74-100)
[2024-08-17] MEDS: VERAPAMIL 2.5MG/ML 2ML VIAL 2.5 MG IV (10:17)
[2024-08-17] MEDS: MIDAZOLAM HCL 1MG/ML 5ML VIAL 1 MG IV (10:17)
[2024-08-17] MEDS: NITROGLYCERIN 800MCG/8ML SYR (CATH LAB) 800 MCG IA (10:17)
[2024-08-17] MEDS: diphenhydrAMINE 50MG/ML VIAL 50 MG IV (10:17)
[2024-08-17] MEDS: HEPARIN 1,000 UNITS/500ML NS (CATH LAB) 3000 UNIT IV (10:19)
[2024-08-17] MEDS: LIDOCAINE 1% 10ML MDV 20 ML IJ (10:19)
[2024-08-17] MEDS: FENTANYL 100MCG/2ML VIAL 25 MCG IV (10:25)
[2024-08-17] MEDS: CLOPIDOGREL 300MG TABLET 600 MG PO (10:25)
[2024-08-17] MEDS: HEPARIN 1,000 UNITS/ML 10ML VIAL (CATH LAB) 10000 UNIT IV (10:26)
[2024-08-17] MEDS: EPTIFIBATIDE 75 MG/100 ML VIAL 14.878 MG IV ×3 (10:28→22:21)
--- NOTE | 2024-08-17 10:53 | PC.NURSE ---
pt ARRIVED TO FLOOR VIA STRETCHER FROM CERTIFIED PROFESSIONAL CODER @[phone]
--- NOTE | 2024-08-17 11:22 | ECG_ITS ---
APPROVED REPORT Exam: Resting ECG HR:65 bpm ECG Measurements Heart Rate 65 AXES PA 149 P 68 QRSd 96 QRS -30 QT 401 T 46 QTc 413 Conclusion SINUS RHYTHM WITH FREQUENT VENTRICULAR PREMATURE COMPLEXES LOW QRS VOLTAGE IN PRECORDIAL LEADS [QRS DEFLECTION < 1.0 mV IN CHEST LEADS] POSSIBLE ANTERIOR MYOCARDIAL INFARCTION , OF INDETERMINATE AGE [30 ms Q WAVE IN V3/V4, OR R < 0.2 mV IN V4] INFERIOR MYOCARDIAL INFARCTION , PROBABLY OLD [40+ ms Q WAVE AND/OR ST/T ABNORMALITY IN II/aVF] ABNORMAL ECG UNCONFIRMED REPORT Electronically signed by : Clark Lee MD 08/17/2024 19:29:50
--- NOTE | 2024-08-17 11:48 | HMH.PHAINT1 ---
Pharmacy Intervention Comments: Home medication list verified using list from outpatient pharmacy, pt interview and prescription bottles.
[2024-08-17] MEDS: METOPROLOL SUCCINATE XL 25MG TABLET 25 MG PO (12:12)
--- NOTE | 2024-08-17 12:26 | CA_ITS ---
APPROVED REPORT EXAM: Comprehensive 2D, Doppler, and color-flow Echocardiogram Business Support Manager: JONATAN Robledo, RVS Ht: 5 ft 6 in Wt: 194lbs BSA: 1.97 BP: 145/62 mmHg Indications: Post Cath 2 stents to occluded LAD, STEMI, CP, DM, HTN, HLD, Ex-smoker Echo Enhancing Agent Comments: Limited window post cath defibrillatorPads/supine 2D Dimensions IVSd 0.79 cm LVEF (Visual) 25.20 % PWd 0.78 cm LA Volume 45.00 mL LVDd 5.67 cm LA Volume Index 22.478209 mL/m2 (M/F) 16-34 LVDs 5.00 cm EF AP4 25.20 % Left Atrium 3.48 cm GL Strain -13.1 % M-Mode Dimensions RVDd 1.37 cm (0.9-2.6) LA Diam 3.25 cm (1.9-4.0) LVDd 5.41 cm (3.5-5.7) LVDs 4.65 cm (3.5-5.7) IVSd 0.87 cm (0.6-1.1) PWd 0.87 cm (0.6-1.1) EF (Teich) 35.60% EPSs 1.44 cm FS 17.30% EDV (Teich) 154.90 mL TAPSE 1.25 (<1.7) ESV (Teich) 99.80 mL LV Diastology E Decel Time 163 (160-240 msec) E/A Ratio 1.39 MED A' 8.60 cm/s LAT A' 8.20 cm/s Aortic Valve JOSEPH Index 0.98 cm2/m2 AoV Peak Jagdish. 140.0 (50-130 cm/s) AO Peak GR. 7.90 mmHg AO Mean GR. 4.00 (<5 mmHg) AO VTI 28.9 (18-25 cm) JOSEPH (VTI) 1.97 (2.5-4.5 cm2) Mitral Valve MV A Velocity 70.0 (40-130 cm/s) E/A Ratio 1.39 Pulmonary Valve PV Peak Velocity 77.0 (50-150 cm/s) Tricuspid Valve TR P. Velocity 268.00 cm/s RAP Estimate 10.00 mmHg RVSP 38.70 mmHg Left Ventricle The left ventricle is normal size. Left ventricular systolic function is severely decreased. There is increased LV wall thickness. There is severe global hypokinesis present. The septal, anteroseptal, and inferoseptal LV arguello are akinetic. Grade 1 diastolic dysfunction is present. LVEF is 25%. Right Ventricle Right ventricle is mildly dilated. The right ventricular systolic function is normal. Atria Left atrium is mildly dilated. The right atrium size is normal. There is no Doppler evidence of interatrial shunt. Aortic Valve The aortic valve is mildly thickened. There is no aortic valvular stenosis. No aortic regurgitation is present. Mitral Valve The mitral valve leaflets are mildly thickened. No evidence of mitral valve stenosis. Mild mitral regurgitation. Tricuspid Valve Tricuspid valve is grossly normal in structure and function. Trace tricuspid regurgitation. There is insufficient TR jet to estimate RVSP. Pulmonic Valve The pulmonary valve is normal in structure. Trace pulmonic regurgitation. Great Vessels The aortic root is normal in size. The ascending aorta is not well-visualized. IVC is not well-visualized. Pericardium There is no pericardial effusion. Other Information Study Quality: Fair Conclusion Severe reduction in LV systolic function (LVEF 25%). Akinesis of theseptal, anteroseptal, and inferoseptal LV arguello. Mild RV dilation with normal RV function. Mild LA dilation. Mild MR. Electronically signed by : Xin Uriostegui MD 08/17/2024 14:01:13
[2024-08-17] MEDS: IOPAMIDOL-370 (76%);100ML BOTTLE 110 ML IV (12:46)
[2024-08-17 12:59] LABS: CATHL Activated Clotting Time 246 SEC (74-125)
--- NOTE | 2024-08-17 13:06 | EXP.HP ---
History of Present Illness *Admission Date: 08/17/24 *Reason for visit:: STEMI *History of present illness: Nathen Marshall is a 69-year-old female with a medical history significant for TIA, hypertension, hypothyroidism, type 2 diabetes who presents with sudden onset chest pain. She states began about 8 AM this morning and felt like elephant sitting on her chest with radiation to the back. On arrival, EKG showed anterior STEMI so cardiology was consulted and Applications Programmer Analyst was activated. Patient received 2 stents to the LAD which was 100% occluded. Patient states she feels a lot better since stents have been placed. Denies chest pain, shortness of breath, abdominal pain at this time. Other workup in the ED significant for WBC 13.6, creatinine 1.6 AGAP 16.3, glucose 265. Case discussed with ED provider and decision was made to admit patient for STEMI. [facility] Disclaimer: The information contained in this section may have been updated after the patient was seen, as this information can be updated by other users. Medical History ALMA (obstructive sleep apnea) Dyspnea Snoring Daytime somnolence Headache Right bundle branch block HLD (hyperlipidemia) HTN (hypertension) Diabetes mellitus Ex-smoker Palpitations Abnormal EKG Chest pain Social History Smoking Status: Never smoker alcohol intake: never substance use type: denies use current occupational status: other Travel in the last 8 weeks: [place] household members: none housing: house Other Medical History Have you received the Flu Vaccine for this season: Yes Have you received the Pneumonia Vaccine: Yes Meds Home Medications and Allergies Home Medications ?Medication ?Instructions ?Recorded ?Confirmed ?Type aspirin 81 mg tablet,delayed 81 mg PO DAILY 10/05/19 08/17/24 History release metformin 1,000 mg tablet 1,000 mg PO BIDWMEAL 10/26/19 08/17/24 History losartan 100 mg tablet 100 mg PO DAILY #90 tabs 01/19/24 08/17/24 Rx atorvastatin 80 mg tablet (Lipitor) 80 mg PO HS 08/17/24 08/17/24 History cholecalciferol (vitamin D3) 25 25 mcg PO DAILY 08/17/24 08/17/24 History mcg (1,000 unit) capsule (Vitamin D3) clopidogrel 75 mg tablet (Plavix) 75 mg PO DAILY #30 tabs 08/17/24 Rx diphenhydramine HCl 25 mg tablet 25 mg PO HS PRN Sleep 08/17/24 08/17/24 History famotidine 20 mg tablet 20 mg PO DAILY 08/17/24 08/17/24 History furosemide 20 mg tablet 20 mg PO DAILY 08/17/24 08/17/24 History glipizide 10 mg tablet 10 mg PO DAILY 08/17/24 08/17/24 History levothyroxine 50 mcg tablet 50 mcg PO DAILY 08/17/24 08/17/24 History lysine 500 mg tablet (L-Lysine) 500 mg PO DAILY 08/17/24 08/17/24 History mecobalamin (vitamin B12) 1,000 1,000 mcg PO DAILY 08/17/24 08/17/24 History mcg chewable tablet (B12 Active) melatonin 10 mg tablet 10 mg PO HS PRN Sleep 08/17/24 08/17/24 History metoprolol succinate 50 mg 50 mg PO HS 08/17/24 08/17/24 History tablet,extended release 24 hr (Toprol XL) omega-3 fatty acids-vitamin E 1,000 cap PO DAILY 08/17/24 08/17/24 History 1,000 mg capsule spironolactone 25 mg tablet 25 mg PO DAILY 08/17/24 08/17/24 History New Prescriptions to Start Prescriptions: clopidogrel [Plavix] Kristian Obando Allergies Allergy/AdvReac Type Severity Reaction Status Date / Time cefdinir Allergy Unknown Verified 07/24/24 13:04 Exam Data for Last 24 hours Vital signs and Labs for Last 24 Hours: Temp Pulse Resp BP Pulse Ox O2 Del Method O2 Flow Rate 98.0 F 60 18 117/70 99 Nasal Cannula 1 08/17/24 09:51 08/17/24 12:01 08/17/24 11:49 08/17/24 11:49 08/17/24 11:49 08/17/24 11:49 08/17/24 11:49 Laboratory Results - last 24 hr 08/17/24 09:20: WBC 13.6 H, RBC 4.13 L, Hgb 12.7, Hct 39.1, MCV 94.6, MCH 30.7, MCHC 32.4, RDW 13.9, Plt Count 272, MPV 10.1, Neut % (Auto) 59.2, Lymph % (Auto) 31.9, [place] % (Auto) 6.1, Eos % (Auto) 1.9, Baso % (Auto) 1.0, Neut # (Auto) 8.0 H, Lymph # (Auto) 4.3, [place] # (Auto) 0.8, Eos # (Auto) 0.3, Baso # (Auto) 0.1, Sodium 138, Potassium 4.3, Chloride 106, Carbon Dioxide 20 L, Anion Gap 16.3 H, BUN 29 H, Creatinine 1.60 H, Estimated Creat Clear 47, Estimated GFR 32 L, Est GFR ( Amer) 38 L, Glucose 265 H, Calcium 9.2 08/17/24 11:12: Activated Clotting Time 246 H* I & O for Last 24 hours: Intake & Output 08/14/24 08/15/24 08/16/24 08/17/24 23:59 23:59 23:59 23:59 Weight 88.224 kg Constitutional Constitutional: no acute distress *Routine HEENT Exam Head: Present normocephalic Eye: Present EOMI and PERRL ENT: Present mucous membranes moist *Routine Neck Exam Neck: Present supple; Absent lymphadenopathy *Routine Respiratory Exam Respiratory: Present CTA bilaterally *Routine Cardiovascular Exam Cardiovascular: Present RRR *Routine Abdominal Exam Abdominal: Present soft and normoactive bowel sounds; Absent tenderness *Routine Rectal Exam Rectal:: deferred *Routine Genitalia Exam Genitalia:: deferred *Routine Extremities Exam Extremities: Absent cyanosis, clubbing or edema *Routine Skin Exam Skin: Present warm; Absent rash *Routine Neurological Exam Neurological: Present alert and oriented X3 Assessment and Plan *Assessment and plan (1) LV dysfunction: Status: Acute Category: Medical Code(s): I51.9 - Heart disease, unspecified (2) ST elevation (STEMI) myocardial infarction involving left anterior descending coronary artery: Status: Acute Category: Medical Code(s): I21.02 - ST elevation (STEMI) myocardial infarction involving left anterior descending coronary artery (3) Hx-TIA (transient ischemic attack): Status: Acute Category: Medical Code(s): Z86.73 - Personal history of transient ischemic attack (TIA), and cerebral infarction without residual deficits (4) CAD (coronary artery disease): Status: Chronic Qualifiers: Coronary Disease-Associated Artery/Lesion type: [place] artery [place] vs. transplanted heart: [place] heart Associated angina: without angina Qualified Code(s): I25.10 - Atherosclerotic heart disease of [place] coronary artery without angina pectoris Category: Medical Code(s): I25.10 - Atherosclerotic heart disease of [place] coronary artery without angina pectoris Anna Marshall is a 69-year-old female with a medical history significant for TIA, hypertension, hypothyroidism, type 2 diabetes who presents with sudden onset chest pain. She states began about 8 AM this morning and felt like elephant sitting on her chest with radiation to the back. On arrival, EKG showed anterior STEMI so cardiology was consulted and Applications Programmer Analyst was activated. Patient received 2 stents to the LAD which was 100% occluded. Patient states she feels a lot better since stents have been placed. Denies chest pain, shortness of breath, abdominal pain at this time. Other workup in the ED significant for WBC 13.6, creatinine 1.6 AGAP 16.3, glucose 265. Case discussed with ED provider and decision was made to admit patient for STEMI. #STEMI #CAD #Severe LV dysfunction #Preventricular complexes ? S/p PCI 08/17/2024 with SOPHIA x 2 to LAD which had 100% occlusion. ? ECHO shows LVEF 25% with akinesis of anterior septal, inferior septal LV arguello. Will need LifeVest unless LVEF improves over the next few days. ? Cardiology consulted, recommendations as below. ? Continue Integrilin drip for 18 hours. ? Continue aspirin 81 mg, atorvastatin 80 mg, started Plavix 75 mg after load. ? Started metoprolol succinate 50 mg for PVCs. ? Consider starting ARNI, SGLT2i, MRA if blood pressures are stable. ? Follow-up hemoglobin A1c, TSH, lipid panel. ? Continuous cardiac telemetry. #Hypertension ? Resume home medications once reconciled. #Type 2 diabetes ? Follow-up hemoglobin A1c. ? ACHS glucose checks, LDSSI. #Hypothyroidism ? Follow-up TSH, T4. ? Resume home levothyroxine 50 mcg. Full code Lovenox 40 mg
--- NOTE | 2024-08-17 13:12 | EXP.CARD.CON ---
History of Present Illness History of Present Illness Consult date: 08/17/24 Requesting physician: Onesimo Mccarthy Consult reason: chest pain Chief complaint: STEMI Additional Medical History:: 1. Hypertension A. Echocardiogram with bubble study, October 04 at , no passage of bubble emboli. B. Echo, 08/02/2022, EF 60-70% with no significant valve disease. 2. Diabetes mellitus 3. CAD A. STEMI, 08/17/2024, subsequent SOPHIA to LAD B. Cardiac cath, 12/2019, nonflow limiting CAD with moderate to severe elevated LVEDP consistent with advanced diastolic dysfunction. 4. History of TIA A. History of MRI at showing small patchy areas of restricted diffusion in the white matter of right frontal lobe, could represent acute infarcts. No masses noted. B CTA neck showed no significant stenosis C. CTA of head showed occlusion of anterior M2 branch of the right MCA. D. Follows with neurology at , Dr. Jourdan Almeida Loop recorder in place, 09/2022, followed by cardiology 5. History of ALMA, patient refuses to have a sleep study or wear CPAP 6. Dyslipidemia A. LDL 64 in 2022, on statin therapy 7. History of anaphylactic type reaction to tPA given at the time of TIA in early 2021 A. Records show history of cluster migraine diagnosis but no evidence of stroke 8. Ex-smoker, quit over 40 years ago 9. GERD History of present illness: 69-year-old white female came to the ER today due to onset of chest pain around 8 AM while talking to insurance personnel on the phone. Patient describes the pain as an elephant sitting on her chest with radiation through to the back. EKG showed evidence of anterior AR with ST elevation. And PVCs with heart rate of 63 bpm. 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 Patient was taken urgently to the cardiac Paralegal Legal Secretary with subsequent placement of drug-eluting stents to the LAD with notation of a proximal thrombosis that appeared to be somewhat chronic in nature. Echocardiogram is pending. Patient states she feels much better since the stents were placed. She is a long-term diabetic. Telemetry post stenting is significant for patient having episodes of slow VT or just rate related bundle branch block. [facility] Disclaimer: The information contained in this section may have been updated after the patient was seen, as this information can be updated by other users. Medical History ALMA (obstructive sleep apnea) Dyspnea Snoring Daytime somnolence Headache Right bundle branch block HLD (hyperlipidemia) HTN (hypertension) Diabetes mellitus Ex-smoker Palpitations Abnormal EKG Chest pain Social History Smoking Status: Never smoker alcohol intake: never substance use type: denies use current occupational status: other Travel in the last 8 weeks: [place] household members: none housing: house Review of Systems Review of Systems Review of systems:: pertinent systems reviewed and negative unless documented below Constitutional Constitutional: Reports frequent falls ENT Ears, Nose, Mouth, and Throat: Reports vertigo *Cardiovascular Cardiovascular: Reports chest pain and Reports dyspnea on exertion *Respiratory Respiratory: Reports dyspnea on exertion *Neurologic Neurologic: Reports frequent falls and Reports vertigo Exam Data for Last 24 hours Vital signs and Labs for Last 24 Hours: Temp Pulse Resp BP Pulse Ox O2 Del Method O2 Flow Rate 97.7 F 60 18 117/70 99 Nasal Cannula 1 08/17/24 11:49 08/17/24 12:01 08/17/24 11:49 08/17/24 11:49 08/17/24 11:49 08/17/24 11:49 08/17/24 11:49 Laboratory Results - last 24 hr 08/17/24 09:20: WBC 13.6 H, RBC 4.13 L, Hgb 12.7, Hct 39.1, MCV 94.6, MCH 30.7, MCHC 32.4, RDW 13.9, Plt Count 272, MPV 10.1, Neut % (Auto) 59.2, Lymph % (Auto) 31.9, [place] % (Auto) 6.1, Eos % (Auto) 1.9, Baso % (Auto) 1.0, Neut # (Auto) 8.0 H, Lymph # (Auto) 4.3, [place] # (Auto) 0.8, Eos # (Auto) 0.3, Baso # (Auto) 0.1, Sodium 138, Potassium 4.3, Chloride 106, Carbon Dioxide 20 L, Anion Gap 16.3 H, BUN 29 H, Creatinine 1.60 H, Estimated Creat Clear 47, Estimated GFR 32 L, Est GFR ( Amer) 38 L, Glucose 265 H, Calcium 9.2 08/17/24 11:12: Activated Clotting Time 246 H* I & O for Last 24 hours: Intake & Output 08/15/24 08/16/24 08/17/24 08/18/24 11:59 11:59 11:59 11:59 Weight 194 lb 8 oz Constitutional Constitutional: no acute distress *Routine Respiratory Exam Respiratory: Present CTA bilaterally *Routine Cardiovascular Exam Cardiovascular: Present RRR; Absent murmur, gallop or rubs *Routine Extremities Exam Extremities: Absent edema Meds Home Medications and Allergies Home Medications ?Medication ?Instructions ?Recorded ?Confirmed ?Type aspirin 81 mg tablet,delayed 81 mg PO DAILY 10/05/19 08/17/24 History release metformin 1,000 mg tablet 1,000 mg PO BIDWMEAL 10/26/19 08/17/24 History losartan 100 mg tablet 100 mg PO DAILY #90 tabs 01/19/24 08/17/24 Rx atorvastatin 80 mg tablet (Lipitor) 80 mg PO HS 08/17/24 08/17/24 History cholecalciferol (vitamin D3) 25 25 mcg PO DAILY 08/17/24 08/17/24 History mcg (1,000 unit) capsule (Vitamin D3) clopidogrel 75 mg tablet (Plavix) 75 mg PO DAILY #30 tabs 08/17/24 Rx diphenhydramine HCl 25 mg tablet 25 mg PO HS PRN Sleep 08/17/24 08/17/24 History famotidine 20 mg tablet 20 mg PO DAILY 08/17/24 08/17/24 History furosemide 20 mg tablet 20 mg PO DAILY 08/17/24 08/17/24 History glipizide 10 mg tablet 10 mg PO DAILY 08/17/24 08/17/24 History levothyroxine 50 mcg tablet 50 mcg PO DAILY 08/17/24 08/17/24 History lysine 500 mg tablet (L-Lysine) 500 mg PO DAILY 08/17/24 08/17/24 History mecobalamin (vitamin B12) 1,000 1,000 mcg PO DAILY 08/17/24 08/17/24 History mcg chewable tablet (B12 Active) melatonin 10 mg tablet 10 mg PO HS PRN Sleep 08/17/24 08/17/24 History metoprolol succinate 50 mg 50 mg PO HS 08/17/24 08/17/24 History tablet,extended release 24 hr (Toprol XL) omega-3 fatty acids-vitamin E 1,000 cap PO DAILY 08/17/24 08/17/24 History 1,000 mg capsule spironolactone 25 mg tablet 25 mg PO DAILY 08/17/24 08/17/24 History New Prescriptions to Start Prescriptions: clopidogrel [Plavix] Kristian Obando Allergies Allergy/AdvReac Type Severity Reaction Status Date / Time cefdinir Allergy Unknown Verified 07/24/24 13:04 Assessment and Plan *Assessment and plan (1) ST elevation (STEMI) myocardial infarction involving left anterior descending coronary artery: Status: Acute Category: Medical Code(s): I21.02 - ST elevation (STEMI) myocardial infarction involving left anterior descending coronary artery (2) Hx-TIA (transient ischemic attack): Status: Acute Category: Medical Code(s): Z86.73 - Personal history of transient ischemic attack (TIA), and cerebral infarction without residual deficits (3) CAD (coronary artery disease): Status: Chronic Qualifiers: Coronary Disease-Associated Artery/Lesion type: [place] artery [place] vs. transplanted heart: [place] heart Associated angina: without angina Qualified Code(s): I25.10 - Atherosclerotic heart disease of [place] coronary artery without angina pectoris Category: Medical Code(s): I25.10 - Atherosclerotic heart disease of [place] coronary artery without angina pectoris (4) HLD (hyperlipidemia): Status: Chronic Qualifiers: Hyperlipidemia type: mixed hyperlipidemia Qualified Code(s): E78.2 - Mixed hyperlipidemia Category: Medical Code(s): E78.5 - Hyperlipidemia, unspecified (5) HTN (hypertension): Status: Chronic Qualifiers: Hypertension type: essential hypertension Qualified Code(s): I10 - Essential (primary) hypertension Category: Medical Code(s): I10 - Essential (primary) hypertension (6) Diabetes mellitus: Status: Chronic Qualifiers: Diabetes mellitus type: type 2 Diabetes mellitus intermediate insulin use: without oil heaterman use Diabetes mellitus complication status: with other specified complication Qualified Code(s): E11.69 - Type 2 diabetes mellitus with other specified complication Category: Medical Code(s): E11.9 - Type 2 diabetes mellitus without complications (7) Ex-smoker: Status: Chronic Category: Social Hx Code(s): Z87.891 - Personal history of nicotine dependence (8) LV dysfunction: Status: Acute Category: Medical Code(s): I51.9 - Heart disease, unspecified Plan 1. Anterior STEMI, 08/17/2024 -Status post SOPHIA to LAD -DAPT with aspirin and Plavix -Check echo (prelim shows severe LV dysfunction with EF around 20-25%) -Integrilin for 18 hours -Metoprolol for arrhythmias -Hold losartan and start Entresto as blood pressure tolerates -telemetry post cath showing AIVR (accelerated idioventricular rhythm) 2. Diabetes mellitus -Defer to Dr. Mccarthy -Add Jardiance 10 mg daily 3. Hypertension -Continue metoprolol -Switch losartan to Entresto 4. History of TIA -Continue aspirin -Loop recorder in place with no reports of atrial fibrillation per patient 5. Hyperlipidemia -Continue statin therapy -LDL goal less than 55 -LDL 65 this admission 6. Hypothyroidism -Continue replacement therapy 7. BLAKE vs CKD (last labs in 2019 were normal) -Cr 1.6 with GFR 32 DAPT post stenting Begin HFrEF therapy with metoprolol, entresto, spironolactone and Jardiance. Will need LifeVest for EF 25%
[2024-08-17] MEDS: BELLADONNA ALKALOIDS 60 ML ML PO (13:42)
[2024-08-17] MEDS: PANTOPRAZOLE 40MG TABLET 40 MG PO (14:01)
[2024-08-17] MEDS: NITROGLYCERIN 1 GM OINTMENT TD ×2 (14:01→20:03)
[2024-08-17] MEDS: humaLOG 100 UNITS/ML 10ML VIAL (SSI) SUBCUT ×2 (17:39→20:06)
[2024-08-17] MEDS: ATORVASTATIN 40MG TABLET 80 MG PO (20:02)
[2024-08-17 20:21] LABS: POC Glucose,Bedside 156 (70-110)
[2024-08-17] MEDS: MORPHINE 4MG/ML SYRINGE 4 MG IV (21:59)
[2024-08-18] VITALS (9 sets, daily range): BP systolic 93–139; BP diastolic 54–74; PULSE 60–80; RESP 16–22; TEMP 36.6–37.3; O2SAT 92–96; BMI 31.7
[2024-08-18] MEDS: EPTIFIBATIDE 75 MG/100 ML VIAL 14.878 MG IV (03:06)
[2024-08-18] MEDS: MORPHINE 4MG/ML SYRINGE 4 MG IV (04:08)
[2024-08-18 05:20] LABS: POC Glucose,Bedside 138 (70-110)
[2024-08-18 06:47] LABS: Albumin Level 3.8 g/dl (3.5-5.0); Chloride 104 mmol/L (98-107)
[2024-08-18 06:48] LABS: Basophils # 0.1 K/mm3 (0-0.2); Basophils % 0.4 % (0.1-2.0); Eosinophils # 0.1 K/mm3 (0.0-0.4); Eosinophils % 0.4 % (0.1-12.0); Hematocrit 31.8 % (37.0-47.0); Lymphocytes # 2.8 K/mm3 (0.7-4.5); Lymphocytes % 19.9 % (10-50); Mean Corpuscular HGB Conc 32.9 g/dL (31.8-35.4); Mean Corpuscular Hemoglobin 30.2 pg (27.0-31.2); Mean Corpuscular Volume 91.9 fl (81-99); Mean Platelet Volume 9.8 fl (7.4-10.4); Monocytes # 1.1 K/mm3 (0.1-1.0); Monocytes % 8.1 % (1.7-9.3); Neutrophils # 9.9 K/mm3 (1.8-7.8); Neutrophils % 71.2 % (37.0-80.0); Platelet Count 217 K/mm3 (142-424); Potassium 4.8 mmoL/L (3.5-5.1); Red Blood Count 3.47 M/mm3 (4.20-5.40); Red Cell Distribution Width 14.2 % (11.5-17.5); Sodium 131 mmol/L (136-145); White Blood Count 13.9 K/mm3 (4.8-10.8)
[2024-08-18 06:50] LABS: Alanine Aminotransferase 41 U/L (12-78); Albumin/Globulin Ratio 1.6 (1.1-1.8); Alkaline Phosphatase 65 U/L (38-126); Anion Gap 7.8 mEq/L (5-15); Aspartate Amino Transferase 294 U/L (14-36); Bilirubin,Total 0.7 mg/dl (0.2-1.3); Blood Urea Nitrogen 26 mg/dl (7-17); Carbon Dioxide 24 mmol/L (22.0-30.0); Cholesterol 97 mg/dl (140-200); Creatinine Clearance Estimated 56 mL/min (50-200); Estimated Glomerular Filt Rate 40 ml/min (>60); GFR (African American) 49 ML/MIN (>60); Globulin 2.4 g/dL (1.3-3.2); Total Protein,Serum 6.2 g/dl (6.3-8.2); Triglycerides 112 mg/dl (30-150); VLDL Cholesterol 22 mg/dL (0-40)
[2024-08-18 06:51] LABS: Calcium 8.8 mg/dl (8.4-10.2); Glucose 133 mg/dl (74-100); HDL Cholesterol 32 mg/dl (40-60); Magnesium 1.7 mg/dl (1.6-2.3)
[2024-08-18 07:02] LABS: Direct LDL Cholesterol 41.74 mg/dL (100-129)
[2024-08-18 07:21] LABS: Thyroid Stimulating Hormone 2.52 uIU/mL (0.465-4.68)
[2024-08-18 07:27] LABS: Hemoglobin 10.5 g/dL (12.2-16.2)
--- NOTE | 2024-08-18 07:50 | XR_ITS ---
PROCEDURE INFORMATION: Exam: XR Chest Exam date and time: 08/18/2024 11:49 AM Age: 69 years old Clinical indication: Other: Persistent leukocytosis TECHNIQUE: Imaging protocol: Radiologic exam of the chest. Views: 1 view. COMPARISON: CT HEART W CALCIUM SCORE 10/30/2019 8:42 AM FINDINGS: Tubes, catheters and devices: Loop recorder overlies the left heart Lungs: Unremarkable. No consolidation. Pleural spaces: Unremarkable. No pleural effusion. No pneumothorax. Heart/Mediastinum: Unremarkable. No cardiomegaly. Diaphragm: Elevated right hemidiaphragm Bones/joints: Unremarkable. IMPRESSION: No acute process
[2024-08-18] MEDS: METOPROLOL SUCCINATE XL 50MG TABLET 50 MG PO (08:19)
[2024-08-18] MEDS: SACUBITRIL/VALSARTAN 24-26MG TABLET 1 EACH PO ×2 (08:19→21:20)
[2024-08-18] MEDS: SPIRONOLACTONE 25MG TABLET 25 MG PO (08:19)
[2024-08-18] MEDS: ASPIRIN EC 81MG TABLET 81 MG PO (08:19)
[2024-08-18] MEDS: CLOPIDOGREL 75MG TAB 75 MG PO (08:19)
[2024-08-18] MEDS: ENOXAPARIN 40MG/0.4ML SYRINGE 40 MG SUBCUT (08:20)
[2024-08-18] MEDS: EMPAGLIFLOZIN 10MG TABLET 10 MG PO (08:55)
[2024-08-18] MEDS: LEVOTHYROXINE 50MCG (0.05MG) TAB 50 MCG PO (08:55)
[2024-08-18] MEDS: FUROSEMIDE 20MG TABLET 20 MG PO (08:55)
[2024-08-18 09:28] LABS: Hemoglobin A1C 5.9 % (4.0-6.0)
[2024-08-18 11:29] LABS: POC Glucose,Bedside 208 (70-110)
[2024-08-18] MEDS: humaLOG 100 UNITS/ML 10ML VIAL (SSI) SUBCUT ×2 (11:31→21:39)
[2024-08-18] MEDS: ONDANSETRON 4MG/2ML VIAL 4 MG IV (12:57)
[2024-08-18 15:30] LABS: Microscopic, Urine URINE MICROSCOPIC (MICROSCOPIC)
[2024-08-18] MEDS: ACETAMINOPHEN 325MG TAB 650 MG PO (15:53)
[2024-08-18 16:04] LABS: Appearance,Urine CLEAR (Clear); Bilirubin,Urine Negative (Negative); Blood, Urine Negative (Negative); Color,Urine YELLOW (Yellow); Glucose,Urine (UA) 3+ (Negative); Ketones,Urine Negative (Negative); Leukocyte Esterase,Urine Negative (Negative); Nitrate,Urine Negative (Negative); Protein,Urine Negative (Negative); Urobilinogen,Urine 0.2 EU/dl (0.2)
[2024-08-18 16:05] LABS: POC Glucose,Bedside 148 (70-110)
--- NOTE | 2024-08-18 17:35 | PC.NURSE ---
Pt alert and oriented x4. Crackles auscultated in lungs. Pt has had no c/o chest pain this shift. She did c/o headache and was medicated per NOV. Pt accidentally pulled out IV in left AC, new IV was placed in right AC. Pt got up with daughter and was showered. Family at bedside most of shift. She is currently resting in bed with call light in reach.
--- NOTE | 2024-08-18 18:53 | P.PN_ITS ---
Subjective *Date: 08/18/24 *Time: 18:53 Interval history: Patient doing better today, no chest pain, shortness of breath. Exam Data for Last 24 hours Vital signs and Labs for Last 24 Hours: Temp Pulse Resp BP Pulse Ox O2 Del Method O2 Flow Rate 99.2 F 66 22 112/65 96 Room Air 1 08/18/24 16:00 08/18/24 16:00 08/18/24 16:00 08/18/24 16:00 08/18/24 16:00 08/18/24 16:45 08/17/24 12:00 Laboratory Results - last 24 hr 08/17/24 20:06: POC Glucose 156 H 08/18/24 05:10: POC Glucose 138 H 08/18/24 05:45: WBC 13.9 H, RBC 3.47 L, Hgb 10.5 L D, Hct 31.8 L, MCV 91.9, MCH 30.2, MCHC 32.9, RDW 14.2, Plt Count 217, MPV 9.8, Neut % (Auto) 71.2, Lymph % (Auto) 19.9, [place] % (Auto) 8.1, Eos % (Auto) 0.4, Baso % (Auto) 0.4, Neut # (Auto) 9.9 H, Lymph # (Auto) 2.8, [place] # (Auto) 1.1 H, Eos # (Auto) 0.1, Baso # (Auto) 0.1, Sodium 131 L, Potassium 4.8, Chloride 104, Carbon Dioxide 24, Anion Gap 7.8, BUN 26 H, Creatinine 1.30 H, Estimated Creat Clear 56, Estimated GFR 40 L, Est GFR ( Amer) 49 L D, Glucose 133 H D, Hemoglobin A1c 5.9, Calcium 8.8, Magnesium 1.7, Total Bilirubin 0.7, AST 294 H, ALT 41, Alkaline Phosphatase 65, Total Protein 6.2 L, Albumin 3.8, Globulin 2.4, Albumin/Globulin Ratio 1.6, Triglycerides 112, Cholesterol 97 L, LDL Cholesterol Direct 41.74 L, VLDL Cholesterol 22, HDL Cholesterol 32 L, Cholesterol/HDL Ratio 3.0, TSH 2.52 08/18/24 11:21: POC Glucose 208 H 08/18/24 15:23: Urine Color Yellow, Urine Appearance Clear, Urine pH 6.0, Ur Specific [place] 1.010, Urine Protein Negative, Urine Glucose (UA) 3+, Urine Ketones Negative, Urine Blood Negative, Urine Nitrate Negative, Urine Bilirubin Negative, Urine Urobilinogen 0.2, Ur Leukocyte Esterase Negative, Urine RBC None, Urine WBC 3-5, Ur Squamous Epith Cells 5-10 08/18/24 15:49: POC Glucose 148 H I & O for Last 24 hours: Intake & Output 08/15/24 08/16/24 08/17/24 08/18/24 23:59 23:59 23:59 23:59 Intake Total 775 / 775 760 / 760 Output Total 0 / 0 0 / 0 Balance 775 / 775 760 / 760 Weight 88.224 kg 89.56 kg Constitutional Constitutional: no acute distress *Routine HEENT Exam Head: Present normocephalic Eye: Present EOMI and PERRL ENT: Present mucous membranes moist *Routine Neck Exam Neck: Present supple; Absent lymphadenopathy *Routine Respiratory Exam Respiratory: Present CTA bilaterally *Routine Cardiovascular Exam Cardiovascular: Present RRR *Routine Abdominal Exam Abdominal: Present soft and normoactive bowel sounds; Absent tenderness *Routine Extremities Exam Extremities: Absent cyanosis, clubbing or edema *Routine Skin Exam Skin: Present warm; Absent rash *Routine Neurological Exam Neurological: Present alert and oriented X3 Assessment and Plan *Assessment and plan (1) LV dysfunction: Status: Acute Category: Medical Code(s): I51.9 - Heart disease, unspecified (2) ST elevation (STEMI) myocardial infarction involving left anterior descending coronary artery: Status: Acute Category: Medical Code(s): I21.02 - ST elevation (STEMI) myocardial infarction involving left anterior descending coronary artery (3) Hx-TIA (transient ischemic attack): Status: Acute Category: Medical Code(s): Z86.73 - Personal history of transient ischemic attack (TIA), and cerebral infarction without residual deficits (4) CAD (coronary artery disease): Status: Chronic Qualifiers: Coronary Disease-Associated Artery/Lesion type: [place] artery [place] vs. transplanted heart: [place] heart Associated angina: without angina Qualified Code(s): I25.10 - Atherosclerotic heart disease of [place] coronary artery without angina pectoris Category: Medical Code(s): I25.10 - Atherosclerotic heart disease of [place] coronary artery without angina pectoris Plan Nathen Marshall is a 69-year-old female with a medical history significant for TIA, hypertension, hypothyroidism, type 2 diabetes who presents with sudden onset chest pain. She states began about 8 AM this morning and felt like elephant sitting on her chest with radiation to the back. On arrival, EKG showed anterior STEMI so cardiology was consulted and Fig Washer was activated. Patient received 2 stents to the LAD which was 100% occluded. Patient states she feels a lot better since stents have been placed. Denies chest pain, shortness of breath, abdominal pain at this time. Other workup in the ED significant for WBC 13.6, creatinine 1.6 AGAP 16.3, glucose 265. Case discussed with ED provider and decision was made to admit patient for STEMI. #STEMI #CAD #Severe LV dysfunction #Preventricular complexes #Hypertension ? S/p PCI 08/17/2024 with SOPHIA x 2 to LAD which had 100% occlusion. ? ECHO shows LVEF 25% with akinesis of anterior septal, inferior septal LV arguello. Will need LifeVest unless LVEF improves over the next few days. ? Cardiology consulted, recommendations as below. Completed Integrilin drip. ? Continue aspirin 81 mg, atorvastatin 80 mg, started Plavix 75 mg after load. ? Continue metoprolol succinate 50 mg for arrhythmias. ? Continue Entresto, spironolactone, Jardiance. ? A1c, TSH, LDL at goal. LDL 42. ? Continuous cardiac telemetry. #Type 2 diabetes ? Hemoglobin A1c 5.9. ? ACHS glucose checks, LDSSI. #Hypothyroidism ? TSH at goal 2.52. ? Resume home levothyroxine 50 mcg. Full code Lovenox 40 mg
[2024-08-18] MEDS: NITROGLYCERIN 1 GM OINTMENT TD (21:20)
[2024-08-18] MEDS: ATORVASTATIN 40MG TABLET 80 MG PO (21:20)
[2024-08-18] MEDS: PANTOPRAZOLE 40MG TABLET 40 MG PO (21:20)
[2024-08-18 21:40] LABS: POC Glucose,Bedside 168 (70-110)
[2024-08-19] VITALS (7 sets, daily range): BP systolic 90–118; BP diastolic 40–76; PULSE 67–80; RESP 17–19; TEMP 36.4–37.1; O2SAT 93–99; BMI 32.1
--- NOTE | 2024-08-19 04:47 | PC.NURSE ---
Patient is alert and oriented x4. She reported to me during the beginning of the shift that she is feeling much better, compared to her status during admission/post-heart cath. Patient was observed to have eyes closed, respirations even and unlabored on room air, and no apparent distress throughout the night. Scheduled medications were administered as appropriately per MAR. Patient was educated about purpose of topical nitroglycerin ointment after expressing questions. Ointment was applied this shift. She has not had any complaints of chest pain, generalized pain, or nausea this shift. Patient ambulated to the bathroom independently with supervision; she tolerates ambulation well without difficulties. She refused an additional bedtime snack; a strawberry breakfast bar was already at the bedside. Upon auscultation, patient's lungs were clear, S1/S2 heart sounds could be heard with a regular rhythm, and bowel sounds were active. Patient has been running normal sinus rhythm on telemetry. Blood pressures have been soft this shift. At this time, the patient is resting in bed without any complaints. No acute changes noted thus far. Call light within reach.
--- NOTE | 2024-08-19 06:00 | PC.NURSE ---
Patient started to complain of a headache with dizziness this morning. Patient's blood pressures have also been hypotensive this shift, systolic in the 90s, during vital sign assessment. I attempted to page Amanda ENCARNACION a couple times but was met with forwards to voicemail at this time. Patient has not had any complaints of chest pain this shift thus far. At this time, nitroglycerin ointment (due for 06:00) will be held. Charge nurse (Doron Paris RN) also consulted and was in agreement.
[2024-08-19] MEDS: LEVOTHYROXINE 50MCG (0.05MG) TAB 50 MCG PO (06:23)
[2024-08-19] MEDS: ACETAMINOPHEN 325MG TAB 650 MG PO ×2 (06:23→22:15)
[2024-08-19 06:41] LABS: POC Glucose,Bedside 147 (70-110)
[2024-08-19 07:29] LABS: Basophils # 0.1 K/mm3 (0-0.2); Basophils % 0.6 % (0.1-2.0); Eosinophils # 0.1 K/mm3 (0.0-0.4); Eosinophils % 0.8 % (0.1-12.0); Lymphocytes # 2.5 K/mm3 (0.7-4.5); Lymphocytes % 20.2 % (10-50); Mean Corpuscular HGB Conc 33.3 g/dL (31.8-35.4); Mean Corpuscular Hemoglobin 30.9 pg (27.0-31.2); Mean Corpuscular Volume 92.8 fl (81-99); Mean Platelet Volume 9.3 fl (7.4-10.4); Monocytes # 1.2 K/mm3 (0.1-1.0); Monocytes % 9.4 % (1.7-9.3); Neutrophils # 8.6 K/mm3 (1.8-7.8); Neutrophils % 69.1 % (37.0-80.0); Platelet Count 231 K/mm3 (142-424); Red Blood Count 3.88 M/mm3 (4.20-5.40); Red Cell Distribution Width 14.1 % (11.5-17.5); White Blood Count 12.5 K/mm3 (4.8-10.8)
[2024-08-19 07:35] LABS: Magnesium 1.8 mg/dl (1.6-2.3)
[2024-08-19 08:49] LABS: Albumin Level 4.1 g/dl (3.5-5.0); Chloride 102 mmol/L (98-107); Potassium 4.7 mmoL/L (3.5-5.1); Sodium 135 mmol/L (136-145)
[2024-08-19 08:51] LABS: Alanine Aminotransferase 38 U/L (12-78); Anion Gap 11.7 mEq/L (5-15); Aspartate Amino Transferase 180 U/L (14-36); Blood Urea Nitrogen 24 mg/dl (7-17); Carbon Dioxide 26 mmol/L (22.0-30.0); Creatinine Clearance Estimated 49 mL/min (50-200); Estimated Glomerular Filt Rate 34 ml/min (>60); GFR (African American) 41 ML/MIN (>60)
[2024-08-19 08:52] LABS: Albumin/Globulin Ratio 1.7 (1.1-1.8); Alkaline Phosphatase 81 U/L (38-126); Bilirubin,Total 0.5 mg/dl (0.2-1.3); Calcium 9.2 mg/dl (8.4-10.2); Globulin 2.4 g/dL (1.3-3.2); Glucose 143 mg/dl (74-100); Total Protein,Serum 6.5 g/dl (6.3-8.2)
[2024-08-19] MEDS: CLOPIDOGREL 75MG TAB 75 MG PO (09:14)
[2024-08-19] MEDS: ASPIRIN EC 81MG TABLET 81 MG PO (09:15)
[2024-08-19] MEDS: ENOXAPARIN 40MG/0.4ML SYRINGE 40 MG SUBCUT (09:15)
[2024-08-19] MEDS: EMPAGLIFLOZIN 10MG TABLET 10 MG PO (09:15)
[2024-08-19] MEDS: METOPROLOL SUCCINATE XL 50MG TABLET 50 MG PO (09:18)
[2024-08-19 11:45] LABS: POC Glucose,Bedside 112 (70-110)
[2024-08-19] MEDS: FLUTICASONE PROP 50MCG NASAL SPRAY 16GM 2 SPRAY NS (14:05)
--- NOTE | 2024-08-19 15:17 | PC.NURSE ---
PT IS RESTING IN BED VISITING WITH FAMILY. ALERT AND ORIENTED X4. TOLERATED SITTING UP IN THE CHAIR FOR A FEW HOURS THIS SHIFT. AMBULATED IN THE [place]. EATING AND DRINKING WELL. BP HAS BEEN LOW T/O THE SHIFT. HOSPITALIST NOTIFIED. LUNG SOUNDS CLEAR. ABDOMEN SOFT/NON TENDER WITH ACTIVE BOWEL SOUNDS. WILL CONTINUE TO MONITOR.
[2024-08-19] MEDS: humaLOG 100 UNITS/ML 10ML VIAL (SSI) SUBCUT (15:46)
[2024-08-19 15:54] LABS: POC Glucose,Bedside 234 (70-110)
[2024-08-19 16:42] LABS: Adenovirus,PCR Not Detected (NotDetected); Bordetella Pertussis Not Detected (NotDetected); Chlamydophila Pneumoniae, PCR Not Detected (NotDetected); Coronavirus 19, PCR Not Detected (NotDetected); Coronavirus 229E Not Detected (NotDetected); Coronavirus NL63 Not Detected (NotDetected); Coronavirus OC43 Not Detected (NotDetected); Coronovirus HKU1,PCR Not Detected (NotDetected); Human Metapneumovirus Not Detected (NotDetected); Influenza A, PCR Not Detected (NotDetected); Influenza AH1, 2009 Not Detected (NotDetected); Influenza AH1, PCR Not Detected (NotDetected); Influenza AH3,PCR Not Detected (NotDetected); Influenza B, PCR Not Detected (NotDetected); Mycoplasma Pneumoniae, PCR Not Detected (NotDetected); Parainfluenza 1, PCR Not Detected (NotDetected); Parainfluenza 2, PCR Not Detected (NotDetected); Parainfluenza 3, PCR Not Detected (NotDetected); Parainfluenza 4, PCR Not Detected (NotDetected); Respiratory Syncytial Virus Not Detected (NotDetected); Rhinovirus/Enterovirus Not Detected (NotDetected)
[2024-08-19] MEDS: ATORVASTATIN 40MG TABLET 80 MG PO (20:58)
[2024-08-19] MEDS: PANTOPRAZOLE 40MG TABLET 40 MG PO (20:58)
--- NOTE | 2024-08-19 21:30 | PC.NURSE ---
Addendum entered by Adelita Hernandez RN 08/19/24 22:08: Patient did not want to take nitroglycerin ointment at this time, for she stated that her chest tightness usually occurs with her coughing and has been getting better overall. Patient did take Entresto per NOV. Patient's blood pressure was taken again right before administration (108/51; MAP: 75). Original Note: Amanda ENCARNACION was paged at this time concerning the patient's blood pressure tonight (111/76; MAP: 88) before administering Entresto this evening. He said that given her current cardiac circumstances, it will be ok for her to receive the medication. The patient was also complaining of subtle chest tightness this evening. Nitroglycerin ointment was OK'd to be administered as appropriately as well.
[2024-08-19] MEDS: SACUBITRIL/VALSARTAN 24-26MG TABLET 1 EACH PO (22:00)
--- NOTE | 2024-08-19 22:28 | P.PN_ITS ---
Subjective *Date: 08/19/24 *Time: 22:28 Interval history: Patient had soft pressures throughout the day SBP in 90s, discontinued Aldactone for tomorrow and help Entresto and Lasix this morning. Otherwise patient feels well. F/u limited ECHO in the morning. Exam Data for Last 24 hours Vital signs and Labs for Last 24 Hours: Temp Pulse Resp BP Pulse Ox O2 Del Method O2 Flow Rate 98.0 F 75 18 111/76 96 Room Air 1 08/19/24 20:00 08/19/24 20:00 08/19/24 20:00 08/19/24 20:00 08/19/24 20:00 08/19/24 20:00 08/17/24 12:00 Laboratory Results - last 24 hr 08/19/24 06:26: POC Glucose 147 H 08/19/24 06:36: WBC 12.5 H, RBC 3.88 L, Hgb 12.0 L, Hct 36.0 L, MCV 92.8, MCH 30.9, MCHC 33.3, RDW 14.1, Plt Count 231, MPV 9.3, Neut % (Auto) 69.1, Lymph % (Auto) 20.2, [place] % (Auto) 9.4 H, Eos % (Auto) 0.8, Baso % (Auto) 0.6, Neut # (Auto) 8.6 H, Lymph # (Auto) 2.5, [place] # (Auto) 1.2 H, Eos # (Auto) 0.1, Baso # (Auto) 0.1, Sodium 135 L, Potassium 4.7, Chloride 102, Carbon Dioxide 26, Anion Gap 11.7, BUN 24 H, Creatinine 1.50 H, Estimated Creat Clear 49, Estimated GFR 34 L, Est GFR ( Amer) 41 L, Glucose 143 H, Calcium 9.2, Magnesium 1.8, Total Bilirubin 0.5, AST 180 H D, ALT 38, Alkaline Phosphatase 81, Total Protein 6.5, Albumin 4.1, Globulin 2.4, Albumin/Globulin Ratio 1.7 08/19/24 11:37: POC Glucose 112 H 08/19/24 15:45: POC Glucose 234 H 08/19/24 16:35: Chlamy pneumoniae PCR Not detected, Adenovirus (PCR) Not detec abdiel, B. pertussis DNA (PCR) Not detected, Coronavirus OC43 (PCR) Not detected, Coronavirus HKU1 (PCR) Not detected, Coronavirus 229E (PCR) Not detected, SARS-CoV-2 (PCR) Not detected, Coronavirus NL63 (PCR) Not detected, Human Metapneumovir PCR Not detected, Influenza A (H1) PCR Not detected, Influ A (H1N1/09) PCR Not detected, Influenza A (H3) PCR Not detected, Influenza Type A (PCR) Not detected, Influenza Type B (PCR) Not detected, M. pneumoniae (PCR) Not detected, Parainfluenza 1 (PCR) Not detected, Parainfluenza 2 (PCR) Not detected, Parainfluenza 3 (PCR) Not detected, Parainfluenza 4 (PCR) Not detected, RSV (PCR) Not detected, Entero/Rhino (PCR) Not detected I & O for Last 24 hours: Intake & Output 08/16/24 08/17/24 08/18/24 08/19/24 23:59 23:59 23:59 23:59 Intake Total 775 / 775 760 / 900 1580 / 1580 Output Total 0 / 0 0 / 0 0 / 0 Balance 775 / 775 760 / 900 1580 / 1580 Weight 88.224 kg 89.56 kg 90.718 kg Constitutional Constitutional: no acute distress *Routine HEENT Exam Head: Present normocephalic Eye: Present EOMI and PERRL ENT: Present mucous membranes moist *Routine Neck Exam Neck: Present supple; Absent lymphadenopathy *Routine Respiratory Exam Respiratory: Present CTA bilaterally *Routine Cardiovascular Exam Cardiovascular: Present RRR *Routine Abdominal Exam Abdominal: Present soft and normoactive bowel sounds; Absent tenderness *Routine Extremities Exam Extremities: Absent cyanosis, clubbing or edema *Routine Skin Exam Skin: Present warm; Absent rash *Routine Neurological Exam Neurological: Present alert and oriented X3 Assessment and Plan *Assessment and plan (1) LV dysfunction: Status: Acute Category: Medical Code(s): I51.9 - Heart disease, unspecified (2) ST elevation (STEMI) myocardial infarction involving left anterior descending coronary artery: Status: Acute Category: Medical Code(s): I21.02 - ST elevation (STEMI) myocardial infarction involving left anterior descending coronary artery (3) Hx-TIA (transient ischemic attack): Status: Acute Category: Medical Code(s): Z86.73 - Personal history of transient ischemic attack (TIA), and cerebral infarction without residual deficits (4) CAD (coronary artery disease): Status: Chronic Qualifiers: Coronary Disease-Associated Artery/Lesion type: [place] artery [place] vs. transplanted heart: [place] heart Associated angina: without angina Qualified Code(s): I25.10 - Atherosclerotic heart disease of [place] coronary artery without angina pectoris Category: Medical Code(s): I25.10 - Atherosclerotic heart disease of [place] coronary artery without angina pectoris Plan Nathen Marshall is a 69-year-old female with a medical history significant for TIA, hypertension, hypothyroidism, type 2 diabetes who presents with sudden onset chest pain. She states began about 8 AM this morning and felt like elephant sitting on her chest with radiation to the back. On arrival, EKG showed anterior STEMI so cardiology was consulted and Racking Machine Operator was activated. Patient received 2 stents to the LAD which was 100% occluded. Patient states she feels a lot better since stents have been placed. Denies chest pain, shortness of breath, abdominal pain at this time. Other workup in the ED significant for WBC 13.6, creatinine 1.6 AGAP 16.3, glucose 265. Case discussed with ED provider and decision was made to admit patient for STEMI. #STEMI #CAD #Severe LV dysfunction #Preventricular complexes #Hypertension ? S/p PCI 08/17/2024 with SOPHIA x 2 to LAD which had 100% occlusion. ? ECHO shows LVEF 25% with akinesis of anterior septal, inferior septal LV arguello. Will need LifeVest unless LVEF improves over the next few days. ? Cardiology consulted, recommendations as below. Completed Integrilin drip 08/16/24. ? Continue aspirin 81 mg, atorvastatin 80 mg, Plavix 75 mg . ? Continue metoprolol succinate 50 mg for arrhythmias. ? Continue Entresto, Jardiance. - Discontinued spironolactone due to soft pressures. ? A1c, TSH, LDL at goal. LDL 42. ? Continuous cardiac telemetry. - LifeVest fitted. Follow-up limited ECHO in the morning. Lifevest can be dc if LVEF > 35%. #Type 2 diabetes ? Hemoglobin A1c 5.9. ? ACHS glucose checks, LDSSI. #Hypothyroidism ? TSH at goal 2.52. ? Resume home levothyroxine 50 mcg. Full code Lovenox 40 mg
[2024-08-19 22:49] LABS: POC Glucose,Bedside 106 (70-110)
[2024-08-20] VITALS: BP 95/57; PULSE 70; RESP 19; TEMP 36.8; O2SAT 95
[2024-08-20 04:00] VITALS: BP 126/58; PULSE 64; PULSE 80; RESP 16; TEMP 36.7; O2SAT 95; BMI 32.5
--- NOTE | 2024-08-20 04:19 | PC.NURSE ---
Patient is alert and oriented x4. Patient was observed to be awake for most of the shift with occasional resting periods (eyes closed, respirations even). She stated that her chest discomfort has eased up significantly but is present whenever she coughs. She has been complaining of more congestion, sneezing, and occasional dizziness that is more evident to her in the mornings. Patient was educated about medication side effects and to move slowly when sitting upright/standing up per dizziness report. Patient's right radial dressing from her cath procedure was finally removed this shift; a band-aid was placed over the site per patient's request. Her right wrist was noticed to be quite bruised but without bleeding or drainage. Patient has not had any other reports of pain. She was given Tylenol once per MAR due to a headache earlier this shift. Scheduled medications were given as appropriately per NOV. Upon auscultation, the patient's bowel sounds were active. She has not reported having a bowel movement since 08/17/24, but does report passing lots of gas. She is continuing to ambulate to the bathroom independently and tolerates it well. Patient's blood pressures have continued to be quite hypotensive this shift. She continues to run normal sinus on telemetry. At this time, the patient is resting in bed without further complaints. No acute changes noted thus far. Call light within reach.
[2024-08-20] MEDS: LEVOTHYROXINE 50MCG (0.05MG) TAB 50 MCG PO (06:19)
[2024-08-20 06:21] LABS: Basophils # 0.1 K/mm3 (0-0.2); Basophils % 0.8 % (0.1-2.0); Eosinophils # 0.1 K/mm3 (0.0-0.4); Eosinophils % 1.5 % (0.1-12.0); Hemoglobin 11.4 g/dL (12.2-16.2); Lymphocytes % 31.1 % (10-50); Mean Corpuscular HGB Conc 33.4 g/dL (31.8-35.4); Mean Corpuscular Hemoglobin 30.7 pg (27.0-31.2); Mean Corpuscular Volume 91.8 fl (81-99); Mean Platelet Volume 9.6 fl (7.4-10.4); Monocytes # 0.9 K/mm3 (0.1-1.0); Monocytes % 9.1 % (1.7-9.3); Neutrophils # 5.5 K/mm3 (1.8-7.8); Neutrophils % 57.5 % (37.0-80.0); Platelet Count 205 K/mm3 (142-424); Red Blood Count 3.71 M/mm3 (4.20-5.40); Red Cell Distribution Width 14.1 % (11.5-17.5); White Blood Count 9.6 K/mm3 (4.8-10.8)
[2024-08-20 06:26] LABS: Albumin Level 3.7 g/dl (3.5-5.0); Chloride 107 mmol/L (98-107); Potassium 4.5 mmoL/L (3.5-5.1); Sodium 137 mmol/L (136-145)
[2024-08-20 06:29] LABS: Alanine Aminotransferase 28 U/L (12-78); Albumin/Globulin Ratio 1.5 (1.1-1.8); Alkaline Phosphatase 74 U/L (38-126); Anion Gap 9.5 mEq/L (5-15); Aspartate Amino Transferase 92 U/L (14-36); Bilirubin,Total 0.4 mg/dl (0.2-1.3); Blood Urea Nitrogen 24 mg/dl (7-17); Calcium 8.8 mg/dl (8.4-10.2); Carbon Dioxide 25 mmol/L (22.0-30.0); Creatinine Clearance Estimated 47 mL/min (50-200); Estimated Glomerular Filt Rate 32 ml/min (>60); GFR (African American) 38 ML/MIN (>60); Globulin 2.5 g/dL (1.3-3.2); Glucose 135 mg/dl (74-100); Total Protein,Serum 6.2 g/dl (6.3-8.2)
[2024-08-20 06:30] LABS: Magnesium 1.9 mg/dl (1.6-2.3)
[2024-08-20 06:38] LABS: POC Glucose,Bedside 135 (70-110)
[2024-08-20 08:00] VITALS: BP 111/56; PULSE 72; PULSE 90; RESP 18; TEMP 36.7; O2SAT 98
[2024-08-20] MEDS: CLOPIDOGREL 75MG TAB 75 MG PO (09:24)
[2024-08-20] MEDS: FUROSEMIDE 20MG TABLET 20 MG PO (09:24)
[2024-08-20] MEDS: ACETAMINOPHEN 325MG TAB 650 MG PO (09:24)
[2024-08-20] MEDS: ASPIRIN EC 81MG TABLET 81 MG PO (09:25)
[2024-08-20] MEDS: FLUTICASONE PROP 50MCG NASAL SPRAY 16GM 2 SPRAY NS (09:25)
[2024-08-20] MEDS: SACUBITRIL/VALSARTAN 24-26MG TABLET 1 EACH PO (09:25)
[2024-08-20] MEDS: EMPAGLIFLOZIN 10MG TABLET 10 MG PO (09:25)
[2024-08-20] MEDS: ENOXAPARIN 40MG/0.4ML SYRINGE 40 MG SUBCUT (09:25)
[2024-08-20] MEDS: METOPROLOL SUCCINATE XL 50MG TABLET 50 MG PO (09:26)
[2024-08-20] MEDS: POLYETHYLENE GLYCOL 3350 17 GM PACKET PO (11:40)
[2024-08-20 12:00] VITALS: BP 103/69; PULSE 70; PULSE 78; RESP 16; O2SAT 100
--- NOTE | 2024-08-20 13:48 | P.PN_ITS ---
Subjective Subjective Date: 08/20/24 Time: 10:00 Principal diagnosis: Anterior STEMI Interval history: This is a 69-year-old female who was admitted to the hospital with an anterior STEMI. She underwent left cardiac catheterization and had 2 stents placed to her LAD. She tolerated the procedure well. She denies any chest pain or pressure. She denies any shortness of breath or edema. She denies any fever, chills, nausea, vomiting, diarrhea, PND orthopnea. The patient does have an ejection fraction of 25%. She has been fitted for her LifeVest. Exam Data for Last 24 hours Vital signs and Labs for Last 24 Hours: Temp Pulse Resp BP Pulse Ox O2 Del Method O2 Flow Rate 98.1 F 78 16 103/69 L 100 Room Air 1 08/20/24 08:00 08/20/24 12:00 08/20/24 12:00 08/20/24 12:00 08/20/24 12:00 08/20/24 12:36 08/17/24 12:00 Laboratory Results - last 24 hr 08/19/24 15:45: POC Glucose 234 H 08/19/24 16:35: Chlamy pneumoniae PCR Not detected, Adenovirus (PCR) Not detected, B. pertussis DNA (PCR) Not detected, Coronavirus OC43 (PCR) Not detected, Coronavirus HKU1 (PCR) Not detected, Coronavirus 229E (PCR) Not detected, SARS-CoV-2 (PCR) Not detected, Coronavirus NL63 (PCR) Not detected, Human Metapneumovir PCR Not detected, Influenza A (H1) PCR Not detected, Influ A (H1N1/09) PCR Not detected, Influenza A (H3) PCR Not detected, Influenza Type A (PCR) Not detected, Influenza Type B (PCR) Not detected, M. pneumoniae (PCR) Not detected, Parainfluenza 1 (PCR) Not detected, Parainfluenza 2 (PCR) Not detected, Parainfluenza 3 (PCR) Not detected, Parainfluenza 4 (PCR) Not detected, RSV (PCR) Not detected, Entero/Rhino (PCR) Not detected 08/19/24 21:01: POC Glucose 106 08/20/24 05:35: WBC 9.6, RBC 3.71 L, Hgb 11.4 L, Hct 34.0 L, MCV 91.8, MCH 30.7, MCHC 33.4, RDW 14.1, Plt Count 205, MPV 9.6, Neut % (Auto) 57.5, Lymph % (Auto) 31.1, [place] % (Auto) 9.1, Eos % (Auto) 1.5, Baso % (Auto) 0.8, Neut # (Auto) 5.5, Lymph # (Auto) 3.0, [place] # (Auto) 0.9, Eos # (Auto) 0.1, Baso # (Auto) 0.1, Sodium 137, Potassium 4.5, Chloride 107, Carbon Dioxide 25, Anion Gap 9.5, BUN 24 H, Creatinine 1.60 H, Estimated Creat Clear 47, Estimated GFR 32 L, Est GFR ( Amer) 38 L, Glucose 135 H, Calcium 8.8, Magnesium 1.9, Total Bilirubin 0.4, AST 92 H D, ALT 28 D, Alkaline Phosphatase 74, Total Protein 6.2 L, Albumin 3.7, Globulin 2.5, Albumin/Globulin Ratio 1.5 08/20/24 06:22: POC Glucose 135 H I & O for Last 24 hours: Intake & Output 08/17/24 08/18/24 08/19/24 08/20/24 23:59 23:59 23:59 23:59 Intake Total 775 / 775 760 / 900 1580 / 1880 660 / 660 Output Total 0 / 0 0 / 0 0 / 0 0 / 0 Balance 775 / 775 760 / 900 1580 / 1880 660 / 660 Weight 194 lb 8 oz 197 lb 7.136 oz 200 lb 202 lb 9.6 oz Narrative: Limited echocardiogram shows: This is a limited TTE to evaluate for LV systolic function. Limited windows were obtained. The left ventricle is normal in size. There is increased LV wall thickness. There is severe global hypokinesis present. There is akinesis of the septal, anteroseptal, and inferoseptal LV arguello. LVEF is 20-25% There is a trivial, anterior pericardial effusion present. No echo indications of tamponade. Left cardiac catheterization shows: The left main artery Normal The left anterior descending artery Initially proximally thrombosed. Following revascularization the LAD was widely patent with widely patent stents in the proximal and mid segment in a contiguous manner The circumflex artery Large dominant normal The right coronary artery Nondominant normal The [place] ventriculogram reveals Not performed The left ventricular end-diastolic pressure Not measured IMPRESSION Proximal thrombosis to the LAD which acted more like a chronic thrombus embolization rather than plaque rupture Successful stenting of the proximal to mid LAD 100% occlusion reduced to 0% with 2 contiguous drug-eluting stents PLAN 1. Switch Eliquis to Xarelto and stressed compliance with this medicine 2. Aspirin and Plavix combined with Xarelto for the next 30 days then after 30 days discontinue aspirin and continue with Plavix and Xarelto 3. Echocardiogram 4. Supportive care 5. Repeat echocardiogram Tuesday morning and if ejection fraction is 35% or less evaluate for LifeVest placement 6. Entresto and beta-blockers once hemodynamically stable 7. LDL less than 55 to be achieved with high intensity statin Constitutional Constitutional: no acute distress and obese *Routine HEENT Exam Head: Present normocephalic and atraumatic ENT: Present mucous membranes moist *Routine Neck Exam Neck: Present supple, full ROM and normal carotid upstroke; Absent JVD, carotid bruit or lymphadenopathy *Routine Respiratory Exam Respiratory: Present CTA bilaterally, normal respiratory effort, able to speak in complete sentences and symmetric chest movement *Routine Cardiovascular Exam Cardiovascular: Present RRR, Normal S1 and Normal S2; Absent murmur or gallop *Routine Abdominal Exam Abdominal: Present soft and normoactive bowel sounds; Absent tenderness, dist ended or organomegaly *Routine Extremities Exam Extremities: Present full ROM, pulses intact and normal capillary refill; Absent cyanosis, clubbing or edema *Routine Skin Exam Skin: Present intact and warm; Absent erythema *Routine Neurological Exam Neurological: Present alert, oriented X3 and CN II-XII intact; Absent sensory deficit or motor deficit Routine Psychiatric Exam Psychiatric: Present normal affect Progress Note: A&P Assessment and plan (1) LV dysfunction: Status: Acute (2) ST elevation (STEMI) myocardial infarction involving left anterior descending coronary artery: Status: Acute (3) CAD (coronary artery disease): Status: Chronic (4) HFrEF (heart failure with reduced ejection fraction): Status: Acute (5) Ischemic cardiomyopathy: Status: Acute (6) HLD (hyperlipidemia): Status: Chronic (7) HTN (hypertension): Status: Chronic (8) Diabetes mellitus: Status: Chronic (9) ALMA (obstructive sleep apnea): Status: Chronic (10) Hx-TIA (transient ischemic attack): Status: Acute Assessment and Plan Assessment and Plan for All Diagnoses:: Plan: 1. This is a 69-year-old female who was admitted to the hospital with an anterior STEMI. She underwent left cardiac catheterization and had 2 stents placed to her LAD. This morning she denies any chest pain or pressure. She states that she is feeling great. The patient will remain on aspirin and Plavix for dual antiplatelet therapy. 2. Her coronary artery disease is likely stable. 3. Her blood pressure is well-controlled. 4. Her LDL goal is less than 55. Her LDL is 41. She is on a statin. 5. The patient does have severe LV dysfunction with an EF of 25%. She had is increased risk for sudden cardiac due to her severe LV dysfunction. She has been fitted for her LifeVest. Repeat limited echocardiogram today shows her ejection fraction remains at 25%. LifeVest will need to be in place prior to discharge home. 6. The patient has been started on Toprol, Entresto and Jardiance for HFrEF. 7. She remains on Lasix for HFrEF. 8. Spironolactone was stopped due to hypotension. Will continue to hold this and try to get this restarted on an outpatient basis. 9. The patient is stable for discharge home today from a cardiac standpoint with her LifeVest in place. The patient will need to follow-up next week on Tuesday after [address] kim. The patient will need to be discharged on the following cardiac medications: Aspirin 81 mg daily, Lipitor 80 mg daily, Plavix 75 mg daily, Lasix 20 mg daily, Entresto 24/26 mg p.o. twice daily, Toprol 50 mg daily, Jardiance 10 mg daily. Thank you for the opportunity to help participate in the care of this patient. All recommendations and orders are per Dr. Uriostegui.
[2024-08-20 15:36] LABS: POC Glucose,Bedside 134 (70-110)
--- NOTE | 2024-08-20 15:42 | EXP.DC.SUM ---
General Admission date:: 08/17/24 HPI HPI HPI: Nathen Marshall is a 69-year-old female with a medical history significant for TIA, hypertension, hypothyroidism, type 2 diabetes who presents with sudden onset chest pain. She states began about 8 AM this morning and felt like elephant sitting on her chest with radiation to the back. On arrival, EKG showed anterior STEMI so cardiology was consulted and Sample Supervisor was activated. Patient received 2 stents to the LAD which was 100% occluded. Patient states she feels a lot better since stents have been placed. Denies chest pain, shortness of breath, abdominal pain at this time. Other workup in the ED significant for WBC 13.6, creatinine 1.6 AGAP 16.3, glucose 265. Case discussed with ED provider and decision was made to admit patient for STEMI. Hospital Course Hospital Course Hospital Course: Nathen Marshall is a 69-year-old female with a medical history significant for TIA, hypertension, hypothyroidism, type 2 diabetes who presents with sudden onset chest pain. She states began about 8 AM the morning of admission and felt like elephant sitting on her chest with radiation to the back. On arrival, EKG showed anterior STEMI so cardiology was consulted and Sample Supervisor was activated. Patient received 2 stents to the LAD which was 100% occluded. Patient states she feels a lot better since stents have been placed. Denies chest pain, shortness of breath, abdominal pain at this time. Other workup in the ED significant for WBC 13.6, creatinine 1.6 AGAP 16.3, glucose 265. Case discussed with ED provider and decision was made to admit patient for STEMI. #STEMI #CAD #Severe LV dysfunction #Preventricular complexes #Hypertension ? S/p PCI 08/17/2024 with SOPHIA x 2 to LAD which had 100% occlusion. ? ECHO shows LVEF 25% with akinesis of anterior septal, inferior septal LV arguello. Will need LifeVest unless LVEF improves over the next few days. ? Cardiology consulted, recommendations as below. Completed Integrilin drip 08/16/24. ? Continue aspirin 81 mg, atorvastatin 80 mg, Plavix 75 mg . ? Continue metoprolol succinate 50 mg for arrhythmias. ? Continue Entresto, Jardiance 10mg, Lasix 20mg. - Discontinued spironolactone due to soft pressures. ? A1c, TSH, LDL at goal. LDL 42. - LifeVest fitted. Limited ECHO continued to show severe LV dysfunction. - Will follow-up with cardiology within 1 week. #Type 2 diabetes ? Hemoglobin A1c 5.9. ? Received ACHS glucose checks, LDSSI. - Continue home regimen, though would advise glipizide being discontinued outpatient due to age and well controlled A1c. #Hypothyroidism ? TSH at goal 2.52. ? Resume home levothyroxine 50 mcg. Exam Data for Last 24 hours Vital signs and Labs for Last 24 Hours: Temp Pulse Resp BP Pulse Ox O2 Del Method O2 Flow Rate 98.1 F 78 16 103/69 L 100 Room Air 1 08/20/24 08:00 08/20/24 12:00 08/20/24 12:00 08/20/24 12:00 08/20/24 12:00 08/20/24 12:36 08/17/24 12:00 Laboratory Results - last 24 hr 08/19/24 15:45: POC Glucose 234 H 08/19/24 16:35: Chlamy pneumoniae PCR Not detected, Adenovirus (PCR) Not detected, B. pertussis DNA (PCR) Not detected, Coronavirus OC43 (PCR) Not detected, Coronavirus HKU1 (PCR) Not detected, Coronavirus 229E (PCR) Not detected, SARS-CoV-2 (PCR) Not detected, Coronavirus NL63 (PCR) Not detected, Human Metapneumovir PCR Not detected, Influenza A (H1) PCR Not detected, Influ A (H1N1/09) PCR Not detected, Influenza A (H3) PCR Not detected, Influenza Type A (PCR) Not detected, Influenza Type B (PCR) Not detected, M. pneumoniae (PCR) Not detected, Parainfluenza 1 (PCR) Not detected, Parainfluenza 2 (PCR) Not detected, Parainfluenza 3 (PCR) Not detected, Parainfluenza 4 (PCR) Not detected, RSV (PCR) Not detected, Entero/Rhino (PCR) Not detected 08/19/24 21:01: POC Glucose 106 08/20/24 05:35: WBC 9.6, RBC 3.71 L, Hgb 11.4 L, Hct 34.0 L, MCV 91.8, MCH 30.7, MCHC 33.4, RDW 14.1, Plt Count 205, MPV 9.6, Neut % (Auto) 57.5, Lymph % (Auto) 31.1, Holmes % (Auto) 9.1, Eos % (Auto) 1.5, Baso % (Auto) 0.8, Neut # (Auto) 5.5, Lymph # (Auto) 3.0, Holmes # (Auto) 0.9, Eos # (Auto) 0.1, Baso # (Auto) 0.1, Sodium 137, Potassium 4.5, Chloride 107, Carbon Dioxide 25, Anion Gap 9.5, BUN 24 H, Creatinine 1.60 H, Estimated Creat Clear 47, Estimated GFR 32 L, Est GFR ( Amer) 38 L, Glucose 135 H, Calcium 8.8, Magnesium 1.9, Total Bilirubin 0.4, AST 92 H D, ALT 28 D, Alkaline Phosphatase 74, Total Protein 6.2 L, Albumin 3.7, Globulin 2.5, Albumin/Globulin Ratio 1.5 08/20/24 06:22: POC Glucose 135 H 08/20/24 11:37: POC Glucose 134 H I & O for Last 24 hours: Intake & Output 08/17/24 08/18/24 08/19/24 08/20/24 23:59 23:59 23:59 23:59 Intake Total 775 / 775 760 / 900 1580 / 1880 660 / 660 Output Total 0 / 0 0 / 0 0 / 0 0 / 0 Balance 775 / 775 760 / 900 1580 / 1880 660 / 660 Weight 88.224 kg 89.56 kg 90.718 kg 91.898 kg Constitutional Constitutional: no acute distress and obese *Routine HEENT Exam Head: Present normocephalic Eye: Present EOMI and PERRL ENT: Present mucous membranes moist *Routine Neck Exam Neck: Present supple; Absent lymphadenopathy *Routine Respiratory Exam Respiratory: Present CTA bilaterally *Routine Cardiovascular Exam Cardiovascular: Present RRR *Routine Abdominal Exam Abdominal: Present soft and normoactive bowel sounds; Absent tenderness *Routine Extremities Exam Extremities: Absent cyanosis, clubbing or edema *Routine Skin Exam Skin: Present warm; Absent rash *Routine Neurological Exam Neurological: Present alert and oriented X3 Results Data Completed and Pending Labs on day of discharge: Labs from last 24 hours 08/20/24 08/20/24 08/20/24 11:37 06:22 05:35 WBC 9.6 RBC 3.71 L Hgb 11.4 L Hct 34.0 L MCV 91.8 MCH 30.7 MCHC 33.4 RDW 14.1 Plt Count 205 MPV 9.6 Neut % (Auto) 57.5 Lymph % (Auto) 31.1 Holmes % (Auto) 9.1 Eos % (Auto) 1.5 Baso % (Auto) 0.8 Neut # (Auto) 5.5 Lymph # (Auto) 3.0 Holmes # (Auto) 0.9 Eos # (Auto) 0.1 Baso # (Auto) 0.1 Sodium 137 Potassium 4.5 Chloride 107 Carbon Dioxide 25 Anion Gap 9.5 BUN 24 H Creatinine 1.60 H Estimated Creat Clear 47 Estimated GFR 32 L Est GFR ( Amer) 38 L Glucose 135 H POC Glucose 134 H 135 H Calcium 8.8 Magnesium 1.9 Total Bilirubin 0.4 AST 92 H D ALT 28 D Alkaline Phosphatase 74 Total Protein 6.2 L Albumin 3.7 Globulin 2.5 Albumin/Globulin Ratio 1.5 Chlamy pneumoniae PCR Adenovirus (PCR) B. pertussis DNA (PCR) Coronavirus OC43 (PCR) Coronavirus HKU1 (PCR) Coronavirus 229E (PCR) SARS-CoV-2 (PCR) Coronavirus NL63 (PCR) Human Metapneumovir PCR Influenza A (H1) PCR Influ A (H1N1/09) PCR Influenza A (H3) PCR Influenza Type A (PCR) Influenza Type B (PCR) M. pneumoniae (PCR) Parainfluenza 1 (PCR) Parainfluenza 2 (PCR) Parainfluenza 3 (PCR) Parainfluenza 4 (PCR) RSV (PCR) Entero/Rhino (PCR) 08/19/24 08/19/24 08/19/24 21:01 16:35 15:45 WBC RBC Hgb Hct MCV MCH MCHC RDW Plt Count MPV Neut % (Auto) Lymph % (Auto) Holmes % (Auto) Eos % (Auto) Baso % (Auto) Neut # (Auto) Lymph # (Auto) Holmes # (Auto) Eos # (Auto) Baso # (Auto) Sodium Potassium Chloride Carbon Dioxide Anion Gap BUN Creatinine Estimated Creat Clear Estimated GFR Est GFR ( Amer) Glucose POC Glucose 106 234 H Calcium Magnesium Total Bilirubin AST ALT Alkaline Phosphatase Total Protein Albumin Globulin Albumin/Globulin Ratio Chlamy pneumoniae PCR Not detected Adenovirus (PCR) Not detected B. pertussis DNA (PCR) Not detected Coronavirus OC43 (PCR) Not detected Coronavirus HKU1 (PCR) Not detected Coronavirus 229E (PCR) Not detected SARS-CoV-2 (PCR) Not detected Coronavirus NL63 (PCR) Not detected Human Metapneumovir PCR Not detected Influenza A (H1) PCR Not detected Influ A (H1N1/09) PCR Not detected Influenza A (H3) PCR Not detected Influenza Type A (PCR) Not detected Influenza Type B (PCR) Not detected M. pneumoniae (PCR) Not detected Parainfluenza 1 (PCR) Not detected Parainfluenza 2 (PCR) Not detected Parainfluenza 3 (PCR) Not detected Parainfluenza 4 (PCR) Not detected RSV (PCR) Not detected Entero/Rhino (PCR) Not detected DS: Diagnosis Discharge Diagnosis (1) LV dysfunction: Status: Acute Code(s): I51.9 - Heart disease, unspecified (2) ST elevation (STEMI) myocardial infarction involving left anterior descending coronary artery: Status: Acute Code(s): I21.02 - ST elevation (STEMI) myocardial infarction involving left anterior descending coronary artery (3) CAD (coronary artery disease): Status: Chronic Code(s): I25.10 - Atherosclerotic heart disease of [place] coronary artery without angina pectoris Qualifiers: Associated angina: without angina Coronary Disease-Associated Artery/Lesion type: [place] artery [place] vs. transplanted heart: [place] heart Qualified Code(s): I25.10 - Atherosclerotic heart disease of [place] coronary artery without angina pectoris (4) HFrEF (heart failure with reduced ejection fraction): Status: Acute Code(s): I50.20 - Unspecified systolic (congestive) heart failure (5) Ischemic cardiomyopathy: Status: Acute Code(s): I25.5 - Ischemic cardiomyopathy (6) HLD (hyperlipidemia): Status: Chronic Code(s): E78.5 - Hyperlipidemia, unspecified Qualifiers: Hyperlipidemia type: mixed hyperlipidemia Qualified Code(s): E78.2 - Mixed hyperlipidemia (7) HTN (hypertension): Status: Chronic Code(s): I10 - Essential (primary) hypertension Qualifiers: Hypertension type: essential hypertension Qualified Code(s): I10 - Essential (primary) hypertension (8) Diabetes mellitus: Status: Chronic Code(s): E11.9 - Type 2 diabetes mellitus without complications Qualifiers: Diabetes mellitus complication status: with other specified complication Diabetes mellitus marine oil terminal superintendent insulin use: without marine oil terminal superintendent use Diabetes mellitus type: type 2 Qualified Code(s): E11.69 - Type 2 diabetes mellitus with other specified complication (9) ALMA (obstructive sleep apnea): Status: Chronic Code(s): G47.33 - Obstructive sleep apnea (adult) (pediatric) (10) Hx-TIA (transient ischemic attack): Status: Acute Code(s): Z86.73 - Personal history of transient ischemic attack (TIA), and cerebral infarction without residual deficits Meds Home Medications and Allergies Home Medications ?Medication ?Instructions ?Recorded ?Confirmed ?Type aspirin 81 mg tablet,delayed 81 mg PO DAILY 10/05/19 08/17/24 History release metformin 1,000 mg tablet 1,000 mg PO BIDWMEAL 10/26/19 08/17/24 History atorvastatin 80 mg tablet (Lipitor) 80 mg PO HS 08/17/24 08/17/24 History cholecalciferol (vitamin D3) 25 25 mcg PO DAILY 08/17/24 08/17/24 History mcg (1,000 unit) capsule (Vitamin D3) clopidogrel 75 mg tablet (Plavix) 75 mg PO DAILY #30 tabs 08/17/24 Rx diphenhydramine HCl 25 mg tablet 25 mg PO HS PRN Sleep 08/17/24 08/17/24 History famotidine 20 mg tablet 20 mg PO DAILY 08/17/24 08/17/24 History furosemide 20 mg tablet 20 mg PO DAILY 08/17/24 08/17/24 History glipizide 10 mg tablet 10 mg PO DAILY 08/17/24 08/17/24 History levothyroxine 50 mcg tablet 50 mcg PO DAILY 08/17/24 08/17/24 History lysine 500 mg tablet (L-Lysine) 500 mg PO DAILY 08/17/24 08/17/24 History mecobalamin (vitamin B12) 1,000 1,000 mcg PO DAILY 08/17/24 08/17/24 History mcg chewable tablet (B12 Active) melatonin 10 mg tablet 10 mg PO HS PRN Sleep 08/17/24 08/17/24 History omega-3 fatty acids-vitamin E 1,000 cap PO DAILY 08/17/24 08/17/24 History 1,000 mg capsule empagliflozin 10 mg tablet 10 mg PO DAILY 30 days #30 tabs 08/20/24 Rx (Jardiance) metoprolol succinate 50 mg 50 mg PO DAILY 30 days #30 tabs 08/20/24 Rx tablet,extended release 24 hr (Toprol XL) sacubitril 24 mg-valsartan 26 mg 1 tab PO BID 30 days #60 tabs 08/20/24 Rx tablet (Entresto) New Prescriptions to Start Prescriptions: clopidogrel [Plavix] Kristian Obando empagliflozin [Jardiance] Shari,Onesimo metoprolol succinate [Toprol XL] Shari,Onesimo sacubitril-valsartan [Entresto] Onesimo Mccarthy Allergies Allergy/AdvReac Type Severity Reaction Status Date / Time cefdinir Allergy Unknown Verified 07/24/24 13:04 Discharge Plan Disposition Patient Disposition: Home, Self-Care Condition: Fair Discharge Order Discharge Orders: Discharge Order (Routine); Ordered 08/20/24 Ordered By: Onesimo Mccarthy Follow up Plan Follow up with: Timothy Asencio MD [Staff Physician] - 09/06/24 1:30 pm Antonio Uriostegui MD [Staff Physician] - 08/29/24 2:45 pm Prescriptions/Medication Reconciliation: New clopidogrel [Plavix] 75 mg Tablet 75 mg PO DAILY Qty: 30 6RF sacubitril-valsartan [Entresto] 24-26 mg Tablet 1 tab PO BID 30 Days Qty: 60 0RF Jardiance 10 mg Tablet 10 mg PO DAILY 30 Days Qty: 30 0RF Continued aspirin 81 mg tablet,delayed release (DR/EC) 81 mg PO DAILY metformin 1,000 mg tablet 1,000 mg PO BIDWMEAL Patient Comments: TAKE 1 TABLET BY MOUTH TWICE A DAY glipizide 10 mg tablet 10 mg PO DAILY levothyroxine 50 mcg tablet 50 mcg PO DAILY Patient Comments: TAKE 1 TABLET BY MOUTH EVERY DAY furosemide 20 mg tablet 20 mg PO DAILY Patient Comments: TAKE 1 TABLET BY MOUTH DAILY FOR FLUID RETENTION atorvastatin [Lipitor] 80 mg tablet 80 mg PO HS famotidine 20 mg Tablet 20 mg PO DAILY diphenhydramine HCl 25 mg Tablet 25 mg PO HS PRN (Reason: Sleep) lysine [L-Lysine] 500 mg Tablet 500 mg PO DAILY cholecalciferol (vitamin D3) [Vitamin D3] 25 mcg (1,000 unit) Capsule 25 mcg PO DAILY omega-3 fatty acids-vitamin E 1,000 mg Capsule 1,000 cap PO DAILY melatonin 10 mg Tablet 10 mg PO HS PRN (Reason: Sleep) mecobalamin (vitamin B12) [B12 Active] 1,000 mcg Tablet,Chewable 1,000 mcg PO DAILY Changed metoprolol succinate [Toprol XL] 50 mg tablet extended release 24 hr 50 mg PO DAILY 30 Days Qty: 30 0RF Discontinued losartan 100 mg tablet 100 mg PO DAILY Qty: 90 3RF spironolactone 25 mg tablet 25 mg PO DAILY Problem Reconciliation Problems Reviewed?: Yes Patient Discharge Instructions Patient Instructions: DI for Heart Attack, DI for Cardiac Catheterization, DI for Coronary Stenting, DI for Surgical Site Infection Print Language: Indian Providers Primary Care Provider: Provider,Referral Admit Provider: Onesimo Mccarthy Attending Provider: Onesimo Mccarthy
[2024-08-20 16:00] VITALS: PULSE 80
--- NOTE | 2024-08-20 22:32 | CA_ITS ---
APPROVED REPORT EXAM: Comprehensive 2D, Doppler, and color-flow Echocardiogram Market Superintendent: Letty Simon RVT Ht: 5 ft 6 in Wt: 200lbs BSA: 2.00 BP: 111/76 mmHg Indications: EF CHECK,EF OF 25% ON 08/17, HTN,EX SMOKER,HLD,DM 2D Dimensions IVSd 1.12 cm F: 0.6-1.0 LVEF (Visual) 38.70 % PWd 1.27 cm F: 0.6 - 1.0 LVDd 3.97 cm F: 3.9 - 5.3 LVDs 3.24 cm F: 2.2 - 3.5 M-Mode Dimensions RVDd 1.85 cm (0.9-2.6) LA Diam 2.50 cm (1.9-4.0) LVDd 6.04 cm (3.5-5.7) IVSd 0.36 cm (0.6-1.1) PWd 0.52 cm (0.6-1.1) EDV (Teich) 182.80 mL Other Information Study Quality: Fair Conclusion This is a limited TTE to evaluate for LV systolic function. Limited windows were obtained. The left ventricle is normal in size. There is increased LV wall thickness. There is severe global hypokinesis present. There is akinesis of the septal, anteroseptal, and inferoseptal LV arguello. LVEF is 20-25% There is a trivial, anterior pericardial effusion present. No echo indications of tamponade. Electronically signed by : Xin Uriostegui MD 08/20/2024 12:22:53
--- NOTE | 2024-08-21 10:41 | SW/DCPLANNER ---
Spoke with patient on the phone. Patient stated that she went to get her medicine from clinic and couldnt afford it and i asked Keyana RN from case management if there was anything we could do to help. Keyana called pharmacy and was able to get her a free trial of one medicine that will drop what she owed. Patient stated that she is aware of her upcoming appointments and she has no concerns or questions at this time. Padmini Sparrow
== END 2024-08-20 16:39 | disposition home or self-care (01) | DRG 322 ==
LOC: ER 09:36 → CATHLAB 09:46 → 2ND 10:20
PROVIDERS: Internal Medicine; Admitting Provider Student in an Organized Health Care Education/Training Program; Emergency Provider Student in an Organized Health Care Education/Training Program; Visit Provider Student in an Organized Health Care Education/Training Program
PROC: 027035Z Dilation of Coronary Artery, One Artery with Two Drug-eluting Intraluminal Devices, Percutaneous Approach (ICD-10-PCS; principal; 2024-08-17 09:30)
DX: I21.02 ST elevation (STEMI) myocardial infarction involving left anterior descending coronary artery (principal); I50.20 Unspecified systolic (congestive) heart failure; E11.9 Type 2 diabetes mellitus without complications; I11.0 Hypertensive heart disease with heart failure; I25.10 Atherosclerotic heart disease of native coronary artery without angina pectoris; E78.5 Hyperlipidemia, unspecified; E03.9 Hypothyroidism, unspecified; I25.5 Ischemic cardiomyopathy; Z86.73 Personal history of transient ischemic attack (TIA), and cerebral infarction without residual deficits; Z79.84 Long term (current) use of oral hypoglycemic drugs; Z79.899 Other long term (current) drug therapy; Z87.891 Personal history of nicotine dependence
CPT/HCPCS: 71045; 80048; 80053; 80061; 81001; 82962; 83036; 83735; 84443; 85025; 85347; 87633; 92941; 92973; 92978; 93005; 93306; 93308; 99152; 99153; 99285; C1725; C1769; C1874; C9606; J1200; J1327; J1644; J1650; J2250; J2270; J2405; J3010; Q9967

== ENCOUNTER 2024-08-20 16:50 | Outpatient (CLI) | payer MEDICARE, OTHER, SELFPAY ==
[2024-08-20 16:58] LABS: Microscopic, Urine URINE MICROSCOPIC (MICROSCOPIC)
[2024-08-20 17:34] LABS: Hematocrit 34.2 % (37.0-47.0); Hemoglobin 11.5 g/dL (12.2-16.2); Mean Corpuscular HGB Conc 33.7 g/dL (31.8-35.4); Mean Corpuscular Hemoglobin 30.6 pg (27.0-31.2); Mean Corpuscular Volume 90.9 fl (81-99); Platelet Count 273 K/mm3 (142-424); Red Blood Count 3.76 M/mm3 (4.20-5.40); Red Cell Distribution Width 14.1 % (11.5-17.5); White Blood Count 12.2 K/mm3 (4.8-10.8)
[2024-08-20 18:33] LABS: Albumin Level 4.2 g/dl (3.5-5.0); Anion Gap 13.1 mEq/L (5-15); Blood Urea Nitrogen 32 mg/dl (7-17); Calcium 9.1 mg/dl (8.4-10.2); Carbon Dioxide 27 mmol/L (22.0-30.0); Chloride 100 mmol/L (98-107); Creatinine,Urine Random 96 mg/dL (Not Estab.); Estimated Glomerular Filt Rate 22 ml/min (>60); GFR (African American) 27 ML/MIN (>60); Glucose 146 mg/dl (74-100); Phosphorous 5.2 mg/dl (2.5-4.5); Potassium 5.1 mmoL/L (3.5-5.1); Sodium 135 mmol/L (136-145)
[2024-08-20 18:48] LABS: Intact Parathyroid Hormone 244.9 pg/mL (7.5-53.5)
[2024-08-20 19:20] LABS: 25-OH Vitamin D, Total 40.5 ng/mL (30-100)
[2024-08-20 20:24] LABS: Appearance,Urine CLEAR (Clear); Bilirubin,Urine Negative (Negative); Blood, Urine Negative (Negative); Color,Urine YELLOW (Yellow); Glucose,Urine (UA) 3+ (Negative); Ketones,Urine Negative (Negative); Leukocyte Esterase,Urine Negative (Negative); Nitrate,Urine Negative (Negative); PH,Urine 5.5 (5.0-8.5); Protein,Urine Negative (Negative); Urobilinogen,Urine 0.2 EU/dl (0.2)
[2024-08-20 20:54] LABS: Bacteria,Urine 1+ /lpf
== END 2024-08-20 23:59 | disposition home or self-care (01) ==
LOC: LAB 16:51
PROVIDERS: PCP Family Medicine; Visit Provider Nurse Practitioner
DX: N18.30 Chronic kidney disease, stage 3 unspecified (principal); E55.9 Vitamin D deficiency, unspecified; Z79.85 Long-term (current) use of injectable non-insulin antidiabetic drugs; Z79.899 Other long term (current) drug therapy
CPT/HCPCS: 36415; 80069; 81001; 82306; 82570; 83970; 84156; 85027; 87086

== ENCOUNTER 2024-08-29 15:46 | Outpatient (CLI) | payer MEDICARE, OTHER, SELFPAY ==
[2024-08-29 16:37] LABS: Hematocrit 36.1 % (37.0-47.0); Hemoglobin 11.7 g/dL (12.2-16.2); Mean Corpuscular HGB Conc 32.4 g/dL (31.8-35.4); Mean Corpuscular Hemoglobin 30.3 pg (27.0-31.2); Mean Corpuscular Volume 93.5 fl (81-99); Red Blood Count 3.86 M/mm3 (4.20-5.40); Red Cell Distribution Width 13.5 % (11.5-17.5); White Blood Count 11.2 K/mm3 (4.8-10.8)
[2024-08-29 16:38] LABS: Basophils # 0.1 K/mm3 (0-0.2); Basophils % 0.8 % (0.1-2.0); Eosinophils # 0.1 K/mm3 (0.0-0.4); Eosinophils % 0.8 % (0.1-12.0); Lymphocytes # 2.5 K/mm3 (0.7-4.5); Lymphocytes % 22.5 % (10-50); Mean Platelet Volume 11.3 fl (7.4-10.4); Monocytes # 0.9 K/mm3 (0.1-1.0); Monocytes % 8.2 % (1.7-9.3); Neutrophils # 7.5 K/mm3 (1.8-7.8); Neutrophils % 67.3 % (37.0-80.0); Platelet Count 340 K/mm3 (142-424)
[2024-08-29 16:43] LABS: Alanine Aminotransferase 26 U/L (12-78); Albumin Level 4.3 g/dl (3.5-5.0); Alkaline Phosphatase 90 U/L (38-126); Aspartate Amino Transferase 36 U/L (14-36); Bilirubin,Direct 0.3 mg/dl (0.0-0.4); Bilirubin,Indirect 0.1 mg/dL (0.0-0.9); Bilirubin,Total 0.4 mg/dl (0.2-1.3); Bilirubin,Unconjugated 0.1 mg/dL (0.0-1.1); Blood Urea Nitrogen 24 mg/dl (7-17); Calcium 9.8 mg/dl (8.4-10.2); Carbon Dioxide 27 mmol/L (22.0-30.0); Chloride 103 mmol/L (98-107); Chol/HDL Ratio 3.2 (1-3.5); Cholesterol 118 mg/dl (140-200); Estimated Glomerular Filt Rate 34 ml/min (>60); GFR (African American) 41 ML/MIN (>60); Glucose 95 mg/dl (74-100); HDL Cholesterol 37 mg/dl (40-60); Magnesium 1.9 mg/dl (1.6-2.3); Sodium 138 mmol/L (136-145); Total Protein,Serum 6.7 g/dl (6.3-8.2); Triglycerides 206 mg/dl (30-150); VLDL Cholesterol 41 mg/dL (0-40)
[2024-08-29 17:00] LABS: Free T4 (Free Thyroxine) 1.38 ng/dl (0.78-2.19)
[2024-08-29 17:59] LABS: Anion Gap 13.2 mEq/L (5-15); Potassium 5.2 mmoL/L (3.5-5.1)
[2024-08-29 18:13] LABS: Direct LDL Cholesterol 48.44 mg/dL (100-129)
[2024-08-29 18:28] LABS: Thyroid Stimulating Hormone 2.09 uIU/mL (0.465-4.68)
== END 2024-08-29 23:59 | disposition home or self-care (01) ==
LOC: LAB 15:50
PROVIDERS: PCP Family Medicine; Visit Provider Internal Medicine
DX: R19.7 Diarrhea, unspecified (principal); I25.10 Atherosclerotic heart disease of native coronary artery without angina pectoris; R94.30 Abnormal result of cardiovascular function study, unspecified; E78.2 Mixed hyperlipidemia; I10 Essential (primary) hypertension; E11.69 Type 2 diabetes mellitus with other specified complication
CPT/HCPCS: 36415; 80048; 80061; 80076; 83735; 84439; 84443; 85025

== ENCOUNTER 2024-08-29 18:03 | Outpatient (CLI) | payer MEDICARE, OTHER, SELFPAY ==
[2024-08-29 18:14] LABS: Adenovirus F 40/41, stool Not Detected (NotDetected); Astrovirus Not Detected (NotDetected); Campylobacter Not Detected (NotDetected); Clostridium Difficile A/B, PCR Not Detected (NotDetected); Cryptosporidium Not Detected (NotDetected); Cyclospora Cayetanesis Not Detected (NotDetected); Entamoeba histolytica Not Detected (NotDetected); Enteroaggregative E coli Not Detected (NotDetected); Enteropathogenic E coli Not Detected (NotDetected); Enterotoxigenic E coli Not Detected (NotDetected); Giardia lamblia Not Detected (NotDetected); Norovirus Not Detected (NotDetected); Plesimonas Shigalloides, PCR Not Detected (NotDetected); Rotavirus A Not Detected (NotDetected); Salmonella, PCR Not Detected (NotDetected); Sapovirus Not Detected (NotDetected); Shiga-like toxin E coli Not Detected (NotDetected); Shigella Enterovasive E coli Not Detected (NotDetected); Vibrio Cholerae Not Detected (NotDetected); Vibrio, PCR Not Detected (NotDetected); Yersinia Entercolitica, PCR Not Detected (NotDetected)
== END 2024-08-29 23:59 | disposition home or self-care (01) ==
LOC: LAB.DROPOF 18:06
PROVIDERS: PCP Internal Medicine; Visit Provider Internal Medicine
DX: R19.7 Diarrhea, unspecified (principal); I25.10 Atherosclerotic heart disease of native coronary artery without angina pectoris; R94.30 Abnormal result of cardiovascular function study, unspecified; E78.5 Hyperlipidemia, unspecified; I10 Essential (primary) hypertension; E11.9 Type 2 diabetes mellitus without complications; Z79.899 Other long term (current) drug therapy
CPT/HCPCS: 36415; 80048; 80061; 80076; 83735; 84439; 84443; 85025; 87506

== ENCOUNTER 2024-09-06 12:08 | Outpatient (CLI) | payer MEDICARE, OTHER, SELFPAY ==
[2024-09-06 13:05] LABS: Blood Urea Nitrogen 18 mg/dl (7-17); Calcium 9.2 mg/dl (8.4-10.2); Estimated Glomerular Filt Rate 44 ml/min (>60); GFR (African American) 54 ML/MIN (>60); Glucose 171 mg/dl (74-100); Potassium 4.7 mmoL/L (3.5-5.1)
[2024-09-06 13:06] LABS: Anion Gap 12.7 mEq/L (5-15); Carbon Dioxide 23 mmol/L (22.0-30.0); Chloride 106 mmol/L (98-107); Sodium 137 mmol/L (136-145)
== END 2024-09-06 23:59 | disposition home or self-care (01) ==
LOC: LAB 12:10
PROVIDERS: PCP Family Medicine; Visit Provider Internal Medicine
DX: I25.5 Ischemic cardiomyopathy (principal); I50.20 Unspecified systolic (congestive) heart failure; I11.0 Hypertensive heart disease with heart failure; G47.33 Obstructive sleep apnea (adult) (pediatric)
CPT/HCPCS: 36415; 80048

== ENCOUNTER 2024-09-06 12:23 | Outpatient (RCR) | payer MEDICARE, OTHER, SELFPAY | END 2024-11-15 14:00 | disposition home or self-care (01) | LOC: CR 12:23 | PROVIDERS: Visit Provider Internal Medicine | DX: Z95.5 Presence of coronary angioplasty implant and graft (principal) | CPT/HCPCS: 93798 ==

== ENCOUNTER 2024-09-13 11:30 | Outpatient (CLI) | payer MEDICARE, OTHER, SELFPAY ==
[2024-09-13 13:08] VITALS: BMI 32.6
== END 2024-09-13 23:59 | disposition home or self-care (01) ==
LOC: DIETICIAN 11:32
PROVIDERS: PCP Family Medicine; Visit Provider Family Medicine
DX: E11.9 Type 2 diabetes mellitus without complications (principal); R19.5 Other fecal abnormalities
CPT/HCPCS: 97802

== ENCOUNTER 2024-11-19 11:23 | Outpatient (CLI) | payer MEDICARE, OTHER, SELFPAY ==
--- NOTE | 2024-11-19 11:25 | CA_ITS ---
APPROVED REPORT EXAM: Limited 2D Echocardiogram Head Doffer: Charla Andrews CRT Ht: 5 ft 6 in Wt: 193lbs BSA: 1.97 BP: 122/65 mmHg Indications: EF CHECK EF 20-25% ON 09/04 ECHO M-Mode Dimensions RVDd 2.39 cm (0.9-2.6) LA Diam 3.98 cm (1.9-4.0) LVDd 4.78 cm (3.5-5.7) LVDs 3.75 cm (3.5-5.7) IVSd 1.43 cm (0.6-1.1) PWd 1.28 cm (0.6-1.1) EF (Teich) 43.70% FS 21.50% EDV (Teich) 106.50 mL ESV (Teich) 60.00 mL Other Information Study Quality: Fair Conclusion This is a limited TTE to evaluate for LV systolic function. Limited windows were obtained. The left ventricle is normal in size. There is increased LV wall thickness. There is mild reduction global LV systolic function. LVEF is 40-45%. Compared to prior study from 08/2024, the LVEF is improved, but continues to be mildly reduced. Electronically signed by : Xin Uriostegui MD 11/19/2024 12:02:56
[2024-11-19 14:44] LABS: Basophils # 0.1 K/mm3 (0-0.2); Basophils % 0.9 % (0.1-2.0); Eosinophils # 0.1 K/mm3 (0.0-0.4); Eosinophils % 1.4 % (0.1-12.0); Hematocrit 35.3 % (37.0-47.0); Hemoglobin 11.2 g/dL (12.2-16.2); Lymphocytes # 2.1 K/mm3 (0.7-4.5); Lymphocytes % 24.1 % (10-50); Mean Corpuscular HGB Conc 31.7 g/dL (31.8-35.4); Mean Corpuscular Hemoglobin 29.8 pg (27.0-31.2); Mean Corpuscular Volume 93.9 fl (81-99); Mean Platelet Volume 11.7 fl (7.4-10.4); Monocytes # 0.8 K/mm3 (0.1-1.0); Monocytes % 8.9 % (1.7-9.3); Neutrophils # 5.6 K/mm3 (1.8-7.8); Neutrophils % 64.5 % (37.0-80.0); Platelet Count 261 K/mm3 (142-424); Red Blood Count 3.76 M/mm3 (4.20-5.40); Red Cell Distribution Width 13.2 % (11.5-17.5); White Blood Count 8.7 K/mm3 (4.8-10.8)
[2024-11-19 15:03] LABS: Albumin Level 4.2 g/dl (3.5-5.0); Chloride 106 mmol/L (98-107); Sodium 140 mmol/L (136-145)
[2024-11-19 15:04] LABS: Potassium 5.1 mmoL/L (3.5-5.1)
[2024-11-19 15:06] LABS: Alanine Aminotransferase 18 U/L (12-78); Anion Gap 12.1 mEq/L (5-15); Aspartate Amino Transferase 22 U/L (14-36); Bilirubin,Unconjugated 0.2 mg/dL (0.0-1.1); Blood Urea Nitrogen 17 mg/dl (7-17); Carbon Dioxide 27 mmol/L (22.0-30.0); Cholesterol 118 mg/dl (140-200); Estimated Glomerular Filt Rate 34 ml/min (>60); GFR (African American) 41 ML/MIN (>60); Total Protein,Serum 6.3 g/dl (6.3-8.2); Triglycerides 237 mg/dl (30-150); VLDL Cholesterol 47 mg/dL (0-40)
[2024-11-19 15:07] LABS: Alkaline Phosphatase 69 U/L (38-126); Calcium 9.2 mg/dl (8.4-10.2); Chol/HDL Ratio 3.1 (1-3.5); Glucose 55 mg/dl (74-100); HDL Cholesterol 38 mg/dl (40-60); Magnesium 1.8 mg/dl (1.6-2.3)
[2024-11-19 15:08] LABS: Bilirubin,Indirect 0.1 mg/dL (0.0-0.9); Bilirubin,Total 0.1 mg/dl (0.2-1.3)
[2024-11-19 15:18] LABS: Direct LDL Cholesterol 41.11 mg/dL (100-129)
[2024-11-19 15:22] LABS: Free T4 (Free Thyroxine) 1.17 ng/dl (0.78-2.19)
[2024-11-19 15:37] LABS: Thyroid Stimulating Hormone 1.44 uIU/mL (0.465-4.68)
== END 2024-11-19 23:59 | disposition home or self-care (01) ==
PROVIDERS: Internal Medicine; PCP Psychiatry & Neurology Sleep Medicine; Visit Provider Nurse Practitioner
DX: I11.0 Hypertensive heart disease with heart failure (principal); I25.10 Atherosclerotic heart disease of native coronary artery without angina pectoris; I50.20 Unspecified systolic (congestive) heart failure; Z86.73 Personal history of transient ischemic attack (TIA), and cerebral infarction without residual deficits; R94.30 Abnormal result of cardiovascular function study, unspecified; I45.10 Unspecified right bundle-branch block; E78.2 Mixed hyperlipidemia; E11.69 Type 2 diabetes mellitus with other specified complication
CPT/HCPCS: 80048; 80061; 80076; 83735; 84439; 84443; 85025; 93308

== ENCOUNTER 2025-05-20 09:07 | Outpatient (CLI) | payer MEDICARE, OTHER, SELFPAY ==
--- OUTSIDE RECORDS SUMMARY | 2024-11-05 06:00 | XMS_ITS ---
Author Organization [facility] Address [address] [facility] [address] [facility] [address] [place] [phone] Care Team Providers Care Director Of Occupational Therapy Name Role Phone Jinny Santos Primary Care Provider Jinny SANTOS Unavailable Unavailable REASON FOR VISIT 6 month check Encounters Encounter Location Date Provider Diagnosis [facility] [address] [place] [id number] 11/05/2024 Jinny Santos Plan Of Treatment Next Appt Details Provider Name:Jinny Lacy er, 05/27/2025 10:15:00 AM, [address], [address], [place], [phone], Progress Notes * LIBERTAD KELLEROB:1955 ( 69 yo F)Acc No.[id number]:11/05/2024 Progress Notes Patient: JACKIE IFTZGERALD Provider: Jinny Santos M.D. :1955 A ge:69 Y S ex:Female Date:11/05/2024 Address:[place] [address], [address] [place] [address] Subjective: * Chief Complaints: * 1 . 6 month check. * Medical History: Objective: * Vitals: Assessment: Plan: * Treatment: * Images: Billing Information: * Visit Code: * Procedure Codes: * Electronic signature of Jinny Santos MD on 05/20/2025 at 09:22 AM EDT Sign off status: Pending * Provider: Jinny Santos M.D. Date: 0 11/05/2024 Generated for Asad francisco/Dario/Pepeitting on: 0 05/20/2025 09:22 AM EDT
--- OUTSIDE RECORDS SUMMARY | 2025-03-26 09:53 | XMS_ITS | Encounter Summary ---
Author Organization Healthcare Address [address] [place] [address] Care Team Providers Care Buyers' Agent Name Role Phone Onesimo Asencio MD Primary Care Provider [phone] Royal Narvaez MD Unavailable Encounter Details Date Type Department Care Team (Latest Contact Info) Description 03/26/2025 9:53 AM EDT - 03/26/2025 11:59 PM EDT Hospital Encounter Cardiac Imaging [address] [place] [address] Encounter for loop recorder check Discharge Disposition: Home or Self Care Social History Tobacco Use Types Packs/Day Years Used Date Smoking Tobacco: Never Smokeless Tobacco: Never Alcohol Use Standard Drinks/Week Comments Never 0 (1 standard drink = 0.6 oz pur e alcohol) PHQ-2 Answer Date Recorded Patient Health Questionnaire-2 Score 1 10/31/2023 CAGE ASSESSMENT Answer Date Recorded Cage unable to access Not on file 08/02/2022 Cage max number of drinks Not on file 2021 Cage Beverages a week Not on file 08/02/2022 Have you ever felt you should CUT down on your d rinking? 0 08/02/2022 Have you been ANNOYED by people criticizing your drinking? 0 08/02/2022 Have you felt GUILTY about your drinking? 0 08/02/2022 Have you had a drink first t kush in the morning (EYE-ALARM SECURITY OR SURVEILLANCE MONITOR) to steady your nerves or to get rid of a hangover? 0 08/02/2022 CAGE Questionnaire Score 0 022 Comments No Sex and Gender Information Value Date Recorded Sex Assigned at Not on file Legal Sex Female 11:03 PM EDT Gender Identity Not on file Sexual Orientation Not on file documented as of this encounter Medications at Time of Discharge acetaminophen (Tylenol) 500 MG tablet Take 2 tablets (1,000 mg) by mouth every 6 hours as needed. apixaban (Eliquis) 5 MG tabletIndications :PAF (paroxysmal atrial fibrillation) (CMS/HCC) Take 1 tablet (5 mg) by mouth 2 (two) times a day. 60 tablet 11 10/29/2024 atorvastatin (Lipitor) 80 MG tablet Take 1 tablet (80 mg total) by mouth 1 (one) time each day. 30 tablet 11 01/28/2022 clopidogrel (Plavix) 75 MG tablet Take 1 tablet (75 mg) by mouth daily. 09/18/2024 cyanocobalamin (Vitamin B-12) 1000 MCG tablet Take 1 tablet (1,000 mcg) by mouth daily. dextromethorphan- guaiFENesin (Mucinex DM) 30-600 MG 12 hr tablet every 12 (twelve) hours. diphenhydrAMINE (Sominex) 25 MG tablet Take 1 tablet (25 mg) by mouth nightly. Takes prn famotidine (Pepcid) 20 MG tablet Take 1 tablet (20 mg) by mouth daily. 08/17/2024 glipiZIDE (Glucotrol) 10 MG tablet Take 1 tablet (10 mg) by mouth daily. 01/22/2022 levothyroxine (Synthroid, Levoxyl) 50 MCG tablet Take 1 tablet (50 mcg) by mouth daily. 12/14/2021 Lysine 1000 MG tablet Take 1,000 mg by mouth 1 (one) time each day in the morning. metFORMIN (Glucophage) 1000 MG tablet Take 1 tablet (1,000 mg) by mouth 2 (two) times a day. 11/16/2021 metoprolol succinate XL (Toprol-XL) 25 MG 24 hr tablet Take 1 tablet (25 mg) by mouth nightly. 11/03/2021 Probiotic Product (align) 4 MG capsule Take by mouth. Psyllium (Metamucil Premium Blend) 52.63 % powder 1 (one) time each day at the same time. valsartan (Diovan) 40 MG tablet Take 1 tablet (40 mg) by mouth daily. 10/15/2024 documented as of this encounter Plan of Treatment Upcoming Encounters Date Type Department Care Team (Late st Contact Info) Description 05/24/2025 8:20 AM EDT Office Visit [facility] [address] [place] [address] Sadaf Saleh APRN [address] [place] [address] 08/05/2025 11:40 AM EST Office Visit [facility] [place] [address] [place] [address] Maria Ines Bui MD [address] [place] [address] documented as of this encounter Procedures Procedure Name Priority Date/Time Associated Diagnosis Comments CARDIAC DEVICE CHECK - REMOTE - LOOP RECORDER (ILR) Routine 03/26/2025 10:20 AM EDT Encounter for loop recorder check documented in this encounter Results * CARDIAC DEVICE CHECK - REMOTE - LOOP RECORDER (ILR) (03/26/2025 10:20 AM EDT) Anatomical Region Laterality Modality Other Narrative 03/26/2025 11:40 AM EDT Implantable loop recorder (ILR) interrogation. Battery remaining in service adequate. EGM's reviewed against indication for implant and diagnosis, found to be unremarkable. Riley on 02/23 demonstrates undersensing Presenting rhythm is sinus Lily Ca Elizabet FRAZIER CV IMPLANTABLE CARDIAC DEV ICE PROCEDURES Final Result documented in this encounter Visit Diagnoses Diagnosis Encounter for loop recorder check documented in this encounter Additional Health Concerns Assessment Noted Time A fall risk assessment has been complete d for the patient 01/28/2025 2:01 PM EDT A Body Mass Index follow-up plan has been documented for the patient 01/28/2025 3:04 PM EDT documented as of this encounter Care Teams Buyers' Agent Relationship Specialty Start Date End Date Onesimo Asencio MD [address] [place] [address] PCP - General 01/25/22 Royal Narvaez MD [address] [place] [address] Consulting Physician Neurology 10/28/22 documented as of this encounter
--- OUTSIDE RECORDS SUMMARY | 2025-04-26 14:45 | XMS_ITS | Encounter Summary ---
Author Organization Healthcare Address [address] [place] [address] Care Team Providers Care Activities Aide Name Role Phone Onesimo Asencio MD Primary Care Provider [phone] Royal Narvaez MD Unavailable Encounter Details Date Type Department Care Team (Latest Contact Info) Description 04/26/2025 2:45 PM EDT - 04/26/2025 11:59 PM EDT Hospital Encounter Cardiac Imaging [address] [place] [address] Encounter for loop recorder check Discharge Disposition: [...] drink first t kush in the morning (EYE-WAX CUTTER) to steady your nerves or to get [...] 8:20 AM EDT Office Visit [facility] [address] [place] [address] Sadaf Saleh APRN [address] [place] [address] 08/05/2025 11:40 AM EST Office Visit [facility] [place] A[place] [address] [place] [address] Maria Ines Bui MD [address] [place] [address] documented as of this encounter [...] documented as of this encounter Care Teams Activities Aide Relationship Specialty Start Date End Date Onesimo Asencio MD [address] [place] [address] PCP - General 01/25/22 Royal Narvaez MD [address] [place] [address] Consulting Physician Neurology 10/28/22 documented as of this encounter
--- OUTSIDE RECORDS SUMMARY | 2025-05-14 16:00 | XMS_ITS | Encounter Summary ---
Author Organization Healthcare Address [address] [place] [address] Care Team Providers Care Dye Colorist Formulator Name Role Phone Onesimo Asencio MD Primary Care Provider [phone] Royal Narvaez MD Unavailable Encounter Details Date Type Department Care Team (Latest Contact Info) Description 05/14/2025 4:00 PM EDT - 05/14/2025 11:59 PM EDT Hospital Encounter Cardiac Imaging [address] [place] [address] Encounter for loop recorder check Discharge Disposition: [...] drink first t kush in the morning (EYE-COMPUTING SERVICES DIRECTOR) to steady your nerves or [...] Description 05/24/2025 8:20 AM EDT [facility] [address] [place] [address] Sadaf Saleh APRN [address] [place] [address] 08/05/2025 11:40 AM EST Office Visit [facility] [place] [address] [place] [address] Maria Ines Bui MD [address] [place] [address] documented as of this encounter Procedures Procedure Name Priority Date/Time Associated Diagnosis Comments CARDIAC DEVICE CHECK CHECK - REMOTE ALERT Routine 05/14/2025 4:20 PM EDT Encounter for loop recorder check documented in this encounter Results * CARDIAC DEVICE CHECK - REMOTE ALERT - LOOP RECORDER (ILR) (05/14/2025 4:20 PM EDT) Anatomical Region Laterality Modality Other Narrative 05/15/2025 9:18 AM EDT [facility] EP - Remote CIED alert (non-scheduled) Name: Nathen Marshall Date: 05/15/2025 : 1955 Age: 69 y.o. Indication for alert: Tachy event Device: Steel Buffer: Medtronic implantable nurse monitoring (ICM) Summary: Tachy on 05/07 for 5 [...] documented as of this encounter Care Teams Dye Colorist Formulator Relationship Specialty Start Date End Date Onesimo Asencio MD [address] [place] [address] PCP - General 01/25/22 Royal Narvaez MD [address] [facility] [address] [place] [address] Consulting Physician Neurology 10/28/22 documented as of this encounter
[2025-05-20 09:15] LABS: Microscopic, Urine URINE MICROSCOPIC (MICROSCOPIC)
--- OUTSIDE RECORDS SUMMARY | 2025-05-20 09:23 | XMS_ITS | Encounter Summary ---
Author Organization [facility] Address [address] [place] [address] Care Team Providers Care Cotton Classer Name Role Phone Onesimo Asencio MD Primary Care Provider [phone] Royal Narvaez MD Unavailable Encounter Details Date Type Department Care Team (Latest Contact Info) Description 04/26/2025 Travel Social History Tobacco Use Types Packs/Day Years [...] drink first t kush in the morning (EYE-FILM REPLACEMENT ORDERER) to steady your nerves or to get rid of a hangover? 0 08/02/2022 CAGE Questionnaire Score 0 022 Comments No Sex and Gender Information Value Date Recorded Sex Assigned at Not on file Legal Sex Female 11:03 PM EDT Gender Identity Not on file Sexual Orientation Not on file documented as of this encounter Plan of Treatment Upcoming Encounters Date Type Department Care Team (Late Contact Info) Description 05/24/2025 8:20 AM EDT Office Visit [facility] [address] [place] [address] Sadaf Saleh, PROPERTY ECONOMIST [address] [facility] [address] [place] [address] 08/05/2025 11:40 AM EST Office Visit [facility] [place] [facility] [address] [place] [address] Maria Ines Bui MD [address] [place] [address] documented as of this encounter Visit Diagnoses Not on filedocumented in this encounter Additional Health Concerns Assessment Noted Time A fall risk assessment has been complete d for the patient 01/28/2025 2:01 PM EDT A Body Mass Index follow-up plan has been documented for the patient 01/28/2025 3:04 PM EDT documented as of this encounter Care Teams Cotton Classer Relationship Specialty Start Date End Date Onesimo Asencio MD [address] [facility] [address] [place] [address] PCP - General 01/25/22 Royal Narvaez MD [address] [facility] [address] [place] [address] Consulting Physician Neurology 10/28/22 documented as of this encounter
--- OUTSIDE RECORDS SUMMARY | 2025-05-20 09:23 | XMS_ITS | Clinical Summary ---
Author Organization [facility] Address [address] [place] [address] Care Team Providers Care Deburring Machine Operator Name Role Phone Onesimo Asencio MD Primary Care Provider [phone] Royal Narvaez MD Unavailable Allergies Active Allergy Reactions Criticality Noted Date Comments Cefdinir Palpitations,Rash Medium 01/26/2022 Alteplase Anaphylaxis High 08/01/2022 Tongue swelling/angioedema Medications metFORMIN (Glucophage) 1000 MG tablet Take 1 tablet (1,000 mg) by mouth 2 (two) times a day. 11/16/2021 Active metoprolol succinate XL (Toprol-XL) 25 MG 24 hr tablet Take 1 tablet (25 mg) by mouth nightly. 11/03/2021 Active levothyroxine (Synthroid, Levoxyl) 50 MCG tablet Take 1 tablet (50 mcg) by mouth daily. 12/14/2021 Active diphenhydrAMINE (Sominex) 25 MG tablet Take 1 tablet (25 mg) by mouth nightly. Takes prn Active Lysine 1000 MG tablet Take 1,000 mg by mouth 1 (one) time each day in the morning. Active cyanocobalamin (Vitamin B-12) 1000 MCG tablet Take 1 tablet (1,000 mcg) by mouth daily. Active glipiZIDE (Glucotrol) 10 MG tablet Take 1 tablet (10 mg) by mouth daily. 01/22/2022 Active atorvastatin (Lipitor) 80 MG tablet Take 1 tablet (80 mg total) by mouth 1 (one) time each day. 30 tablet 11 01/28/2022 Active acetaminophen (Tylenol) 500 MG tablet Take 2 tablets (1,000 mg) by mouth every 6 hours as needed. Active famotidine (Pepcid) 20 MG tablet Take 1 tablet (20 mg) by mouth daily. 08/17/2024 Active valsartan (Diovan) 40 MG tablet Take 1 tablet (40 mg) by mouth daily. 10/15/2024 Active clopidogrel (Plavix) 75 MG tablet Take 1 tablet (75 mg) by mouth daily. 09/18/2024 Active dextromethorpha n-guaiFENesin (Mucinex DM) 30-600 MG 12 hr tablet every 12 (twelve) hours. Active Probiotic Product (align) 4 MG capsule Take by mouth. Active Psyllium (Metamucil Premium Blend) 52.63 % powder 1 (one) time each day at the same time. Active apixaban (Eliquis) 5 MG tabletIndicatio ns:PAF (paroxysmal atrial fibrillation) (CMS/HCC) Take 1 tablet (5 mg) by mouth 2 (two) times a day. 60 tablet 11 10/29/2024 Active Active Problems Problem Noted Date Diagnosed Date Status post placement of implantable loop record er 01/28/2025 PAF (paroxysmal atrial fibrillation) 01/28/2025 Carotid stenosis, bilateral 01/17/2025 Class 2 obesity 01/17/2025 Fibrocystic breast disease (FCBD) 01/17/2025 Hypothyroidism (acquired) 01/17/2025 Localized, primary osteoarthritis of hand 2024 Polyarthritis 01/17/2025 Vitamin D deficiency 01/17/2025 HFrEF (heart failure with reduced ejection fract ion) 10/16/[address] elevation myocardial infarction (S ERUM) 10/16/2024 Ischemic cardiomyopathy 10/16/2024 LV dysfunction 10/16/2024 ST elevation (STEMI) myocard ial infarction involving left anterior descending coronary artery 10/16/2024 Abnormal EKG 10/31/2023 Abnormal result of cardiovascular function study 10/31/2023 Atypical angina 10/31/2023 Bronchitis 10/31/2023 CAD (coronary artery disease) 10/31/2023 Chest pain 10/31/2023 Daytime somnolence 10/31/2023 Diabetes mellitus 10/31/2023 Diastolic dysfunction 10/31/2023 Dyspnea 10/31/2023 Elevated left ventricular end-diastolic pressure (LVEDP) 10/31/2023 Encounter for laboratory testing for COVID-19 vi [place] 10/31/2023 Fatigue 10/31/2023 Headache 10/31/2023 HLD (hyperlipidemia) 10/31/2023 HTN (hypertension) 10/31/2023 ALMA (obstructive sleep apnea) 10/31/2023 Palpitations 10/31/2023 Right bundle branch block 10/31/2023 Sinusitis 10/31/2023 Snoring 10/31/2023 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 08/02/2022 Resolved Problems Problem Noted Date Diagnosed Date Resolved Date TIA (transient ischemic attack) 08/01/2022 08/02/2022 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 01/27/2022 08/02/2022 Facial droop 01/26/2022 08/02/2022 Arterial occlusion Encounters Date Type Department Care Team Description 05/14/2025 4:00 PM EDT - 05/14/2025 11:59 PM EDT Hospital Encounter Cardiac Imaging [address] [place] [address] Encounter for loop recorder check Discharge Disposition: Home or Self Care 05/14/2025 Travel 04/26/2025 2:45 PM EDT - 04/26/2025 11:59 PM EDT Hospital Encounter Cardiac Imaging [address] [place] [address] Encounter for loop recorder check Discharge Disposition: Home or Self Care 04/26/2025 Travel 03/26/2025 9:53 AM EDT - 03/26/2025 11:59 PM EDT Hospital Encounter Cardiac Imaging [address] [place] [address] Encounter for loop recorder check Discharge Disposition: Home or Self Care 03/26/2025 Travel 02/25/2025 2:45 PM EDT - 02/25/2025 11:59 PM EDT Hospital Encounter Cardiac Imaging [address] [place] [address] Encounter for loop recorder check Discharge Disposition: Home or Self Care 02/25/2025 Travel from Last 3 Months Immunizations Immunization Administration Dates Next Due Influenza, High-dose, Split Virus, Trivalent, Injectable, preservative free 08/04/2020 Influenza, high-dose, quadrivalent 06/21/2022,,08/04/2020 Influenza, injectable, quadr ivalent, preservative free 07/20/2023 Influenza, trivalent, adjuvanted 07/04/2024 Perri COVID-19 Vaccine (Blue Cap) 18+ 11/20/19 Moderna COVID-19 Vaccine (Re d Cap) 12+ years 07/15/2021 Pneumococcal Conjugate PCV 13 07/09/2019 Pneumococcal Polysaccharide PPV23 08/04/2020 Social History Tobacco Use Types Packs/Day Years Used Date Smoking Tobacco: Never Smokeless Tobacco: Never Tobacco Cessation:Counseling Given: Not Answered Alcohol Use Standard Drinks/Week Comments Never 0 [...] drink first t kush in the morning (EYE-VISUAL MERCHANDISING DIRECTOR) to steady your nerves or to get rid of a hangover? 0 08/02/2022 CAGE Questionnaire Score 0 022 Comments No Sex and Gender Information Value Date Recorded Sex Assigned at Not on file Legal Sex Female 11:03 PM EDT Gender Identity Not on file Sexual Orientation Not on file Last Filed Vital Signs Vital Sign Reading Time Taken Comments Blood Pressure 117/75 01/28/2025 2:00 PM EDT Pulse 62 01/28/2025 2:00 PM EDT Temperature 36.4 C (97.6 F) 08/24/2024 10:03 AM EST Respiratory Rate 16 08/24/2024 10:03 AM EST Oxygen Saturation 97% 01/28/2025 2:00 PM EDT Inhaled Oxygen Concentration - - Weight 85.9 kg (189 lb 6 oz) 01/28/2025 2:00 PM EDT Height 167.6 cm (5' 6 ) 01/28/2025 2:00 PM EDT Body Mass Index 30.57 01/28/2025 2:00 PM EDT Plan of Treatment Upcoming Encounters Date Type Department Care Team (Late st Contact Info) Description 05/24/2025 8:20 AM EDT Office Visit [facility] [address] [place] [address] Sadaf Saleh, HOOK UP [address] [place] [address] 08/05/2025 11:40 AM EST Office Visit [facility] [place] [facility] [address] [place] [address] Maria Ines Bui MD [address] [place] [address] Health Maintenance Due Date Last Done Comments [facility]-Bone Density Scan 1955 [facility]-Medicare Annual Wellness (AWV) 1955 [facility]-Infant/Child/Adol SDOH Screenings 1955 Diabetes: Dental Exam 1963 [facility]- SDOH Screenings 1971 [facility]-Adult SDOH Screenings 1971 CT Colonography 1998 Colonoscopy 1998 FIT 1998 FOBT 1998 Sigmoidoscopy 1998 [facility]-Breast Cancer Screening 2003 [facility]-Zoster Vaccines (1 of 2) 2003 [facility]-RSV Vaccine: 60+ Years or (1 - Risk 60-74 years 1-dose series) 2013 [facility]-DTaP,Tdap,and Td Vaccines (2 - Td or Tdap) 08/22/2019 08/22/2009 [facility]-Diabetes: Hemoglobin A1C 01/29/2023 08/01/2022, 01/26/2022 [facility]-Depression Screening 10/31/2024 10/31/2023 [id number] Vaccine ( season) 2025 07/04/2024, 07/23/2023, 07/20/2023, Additional history exists [facility]-Influenza Vaccine (#1) 05/13/202507/04, 07/20/2023, 06/21/2022, Additional history exists FIT-DNA 01/30/2027 01/31/2024 [facility]-Colorectal Cancer Screening 01/30/2027 [facility]-Pneumococcal Vaccine: 50+ Years Completed 08/04/2020, 07/09/2019 [facility]-Hepatitis C Screening Completed 01/26/2022 [facility]-Obesity Intervention Completed 025, 10/29/2024, 08/24/2024, Additional history exists HPV Vaccines Aged Out No longer eligi ble based on patient's age to complete this topic [facility]-HIB Vaccines Aged Out No longer e ligible based on patient's age to complete this topic [facility]-Hepatitis A Vaccines Aged Out No longer eligible based on patient's age to complete this topic [facility]-IPV Vaccines Aged Out No longer e ligible based on patient's age to complete this topic [facility]-Rotavirus Vaccines Aged Out No lo nger eligible based on patient's age to complete this topic Procedures Procedure Name Priority Date/Time Associated Diagnosis Comments CARDIAC DEVICE CHECK CHECK - REMOTE ALERT Routine 05/14/2025 4:20 PM EDT Encounter for loop recorder check CARDIAC DEVICE CHECK - REMOTE - LOOP RECORDER (ILR) Routine 04/26/2025 4:03 PM EDT Encounter for loop recorder check CARDIAC DEVICE CHECK - REMOTE - LOOP RECORDER (ILR) Routine 03/26/2025 10:20 AM EDT Encounter for loop recorder check CARDIAC DEVICE CHECK - REMOTE - LOOP RECORDER (ILR) Routine 02/25/2025 3:07 PM EDT Encounter for loop recorder check HEMOGLOBIN A1C Add-On 08/01/2022 5:49 PM EST HEPATITIS C ANTIBODY - ED W/REFLEX TO HCV QUANT PCR Routine 01/26/2022 1:38 AM EDT from Last 3 Months or Most Recently Relevant to Health Maintenance Results * CARDIAC DEVICE CHECK - REMOTE ALERT - LOOP RECORDER (ILR) (05/14/2025 4:20 PM EDT) Anatomical Region Laterality Modality Other Narrative 05/15/2025 9:18 AM EDT [facility] EP - Remote CIED alert (non-scheduled) Name: Nathen Marshall Date: 05/15/2025 : 1955 Age: 69 y.o. Indication for alert: Tachy event Device: Early Childhood Coordinator: Medtronic implantable bus driver/monitor (ICM) Summary: Tachy on 05/07 for 5 seconds, QRS complexes appear wider with change in morphology. See attached report for CIED details Will continue to monitor for further NSVT. Lily Mcneal KARIN CV IMPLANTABLE CARDIAC DEV ICE PROCEDURES Final Result * CARDIAC DEVICE CHECK - REMOTE - LOOP RECORDER (ILR) (04/26/2025 4:03 PM EDT) Only the most recent of3 resultswithin the time period is included. Anatomical Region Laterality Modality Other Narrative 04/26/2025 4:09 PM EDT Implantable loop recorder (ILR) interrogation. Battery remaining in service adequate. EGM's reviewed against indication for implant and diagnosis, found to be unremarkable. [place] x2, egms demonstrate undersensing Presenting rhythm is sinus Lily Mcneal KARIN CV IMPLANTABLE CARDIAC DEV ICE PROCEDURES Final Result * (ABNORMAL) Hemoglobin A1c (08/01/2022 5:49 PM EST) Hemoglobin A1c 6.7(H) <5.7 % 08/01/2022 10:05 PM EST [facility] Blood Venous blood specimen / Unknown Venipuncture / Unknown 08/01/2022 5:49 PM EST 08/01/2022 5:51 PM EST Narrative [facility] - 08/01/2022 10:05 PM EST HA1C Interpretive Data: Diagnosis of Diabetes: Diabetic > or = 6.5% Pre-diabetic 5.7 to 6.4% Non-diabetic < or = 5.6% Glycemic Targets for Type I and Type II Diabetics: Non- Adults <7.0% Adults <6.0% Children and Adolescents <7.5% Source: [place] [employer]. Standards of medical care in diabetes,2017. Diabetes Care.2017:40 (suppl 1):S1-S135. HbA1c assay performed by an ion-exchange chromatography method that is certified traceable to the DCCT. us Royal Narvaez MD LAB BLOOD ORDERABLES Final Resul t Performing Organization Address City/[facility]/ZIP Co de Phone Number [facility] [address] [place] [address] * [place] Hepatitis C Antibody (01/26/2022 1:38 AM EDT) [facility] Signature Hepatitis C Antibody Negative Negative 01/26/2022 3:14 AM EDT [facility] Blood Venous blood specimen / Unknown Venipuncture / Unknown 01/26/2022 1:38 AM EDT 01/26/2022 1:58 AM EDT us Royal Narvaez MD LAB BLOOD ORDERABLES Final Resul t [facility] [address] [place] [address] from Last 3 Months or Most Recently Relevant to Health Maintenance Insurance [facility] Advance Directives * Full Code (Latest Code Status on File) Date Activated Date Inactivated Comments 01/26/2022 12:42 AM 01/27/2022 5:22 PM Question Answer Comments Patient has decision-making capacity? Yes Care Teams Deburring Machine Operator Relationship Specialty Start Date End Date Onesimo Asencio MD [address] [place] [address] PCP - General 01/25/22 Royal Narvaez MD [address] [facility] [address] [place] [address] Consulting Physician Neurology 10/28/22
--- OUTSIDE RECORDS SUMMARY | 2025-05-20 09:23 | XMS_ITS | Encounter Summary ---
Author Organization [facility] Address [address] [place] [address] Care Team Providers Care Non Destructive Evaluation Manager Name Role Phone Onesimo Asencio MD Primary Care Provider [phone] Royal Narvaez MD Unavailable Encounter Details Date Type Department Care Team (Latest Contact Info) Description 03/26/2025 Travel Social History Tobacco Use Types Packs/Day [...] drink first t kush in the morning (EYE-INFECTIOUS DISEASE TECHNICIAN) to steady your nerves or to [...] Description 05/24/2025 8:20 AM EDT Office Visit [facility] [address] [place] [phone] Sadaf Saleh, MOBILE CRANE OPERATOR [address] [facility] [address] [place] [address] 08/05/2025 11:40 AM EST Office Visit [facility] [place] [facility] [address] [place] [address] Maria Ines Bui MD [address] [place] [address] documented as of this encounter Visit Diagnoses Not on filedocumented in this encounter Additional Health Concerns Assessment Noted Time A fall risk assessment has been complete d for the patient 01/28/2025 2:01 PM EDT A Body Mass Index follow-up plan has been documented for the patient 01/28/2025 3:04 PM EDT documented as of this encounter Care Teams Non Destructive Evaluation Manager Relationship Specialty Start Date End Date Onesimo Asencio MD [address] [facility] [address] [place] [address] PCP - General 01/25/22 Royal Narvaez MD [address] [facility] [address] [place] [address] Consulting Physician Neurology 10/28/22 documented as of this encounter
--- OUTSIDE RECORDS SUMMARY | 2025-05-20 09:23 | XMS_ITS | Encounter Summary ---
Author Organization [facility] Address [address] [place] [address] Care Team Providers Care Preparation Plant Supervisor Name Role Phone Onesimo Asencio MD Primary Care Provider [phone] Royal Narvaez MD Unavailable Encounter Details Date Type Department Care Team (Latest Contact Info) Description 05/14/2025 Travel Social History Tobacco Use Types Packs/Day [...] drink first t kush in the morning (EYE-SHEET METAL HELPER) to steady your nerves or to get [...] Description 05/24/2025 8:20 AM EDT Office Visit [facility] [address] [place] [id number] Sadaf Saleh, CONSULTING SERVICES ASSOCIATE [address] [facility] [address] [place] [address] 08/05/2025 11:40 AM EST Office Visit [facility] Graham Akin [address] [place] [id number] Maria Ines Bui MD [address] [place] [address] documented as of this encounter Visit Diagnoses Not on filedocumented in this encounter Additional Health Concerns Assessment Noted Time A fall risk assessment has been complete d for the patient 01/28/2025 2:01 PM EDT A Body Mass Index follow-up plan has been documented for the patient 01/28/2025 3:04 PM EDT documented as of this encounter Care Teams Preparation Plant Supervisor Relationship Specialty Start Date End Date Onesimo Asencio MD [address] [facility] [address] [place] [address] PCP - General 01/25/22 Royal Narvaez MD [address] [facility] [address] [place] [id number] Consulting Physician Neurology 10/28/22 documented as of this encounter
[2025-05-20 09:50] LABS: Hematocrit 40.9 % (37.0-47.0); Hemoglobin 13.2 g/dL (12.2-16.2); Mean Corpuscular HGB Conc 32.3 g/dL (31.8-35.4); Mean Corpuscular Hemoglobin 30.3 pg (27.0-31.2); Mean Corpuscular Volume 93.8 fl (81-99); Nucleated Red Blood Cells % 0 %; Platelet Count 236 K/mm3 (142-424); Red Blood Count 4.36 M/mm3 (4.20-5.40); Red Cell Distribution Width-SD 44.1 fL; White Blood Count 8.8 K/mm3 (4.8-10.8)
[2025-05-20 10:02] LABS: Chloride 103 mmol/L (98-107)
[2025-05-20 10:03] LABS: Albumin Level 4.4 g/dl (3.5-5.0); Potassium 5.1 mmoL/L (3.5-5.1); Sodium 137 mmol/L (136-145)
[2025-05-20 10:06] LABS: Anion Gap 12.1 mEq/L (5-15); Blood Urea Nitrogen 23 mg/dl (7-17); Calcium 9.8 mg/dl (8.4-10.2); Carbon Dioxide 27 mmol/L (22.0-30.0); Creatinine,Serum 1.10 mg/dl (0.52-1.04); Estimated Glomerular Filt Rate 49 ml/min (>60); GFR (African American) 59 ML/MIN (>60); Glucose 180 mg/dl (74-100); Phosphorous 4.3 mg/dl (2.5-4.5)
[2025-05-20 10:19] LABS: 25-OH Vitamin D, Total 37.0 ng/mL (30-100)
[2025-05-20 10:43] LABS: Bilirubin,Urine Negative (Negative); Color,Urine YELLOW (Yellow); Glucose,Urine (UA) Negative (Negative); Ketones,Urine Negative (Negative); Leukocyte Esterase,Urine Negative (Negative); PH,Urine 5.5 (5.0-8.5); Protein,Urine Negative (Negative); Specific Gravity, Urine 1.015 (1.005-1.030); Urobilinogen,Urine 0.2 EU/dl (0.2)
[2025-05-20 10:59] LABS: Bacteria,Urine 2+ /lpf; WBC,Urine Occasional #/hpf (0-3)
== END 2025-05-20 23:59 | disposition home or self-care (01) ==
LOC: LAB 09:10
PROVIDERS: PCP Family Medicine; Visit Provider Nurse Practitioner
DX: N18.30 Chronic kidney disease, stage 3 unspecified (principal); E55.9 Vitamin D deficiency, unspecified
CPT/HCPCS: 36415; 80069; 81001; 82306; 82570; 83970; 84156; 85027; 87086

== ENCOUNTER 2025-06-07 13:10 | Outpatient (CLI) | payer MEDICARE, OTHER, SELFPAY ==
--- OUTSIDE RECORDS SUMMARY | 2024-10-01 07:00 | XMS_ITS ---
Author Organization [facility] Address [address] [facility] [address] [place] [id number] Care Team Providers Care Engineering Designer Name Role Phone Jinny Santos Primary Care Provider [phone] Jinny SANTOS Unavailable Unavailable Allergies Allergen (clinical [...] Cr 1.28, gfr 45 Performing Lab: Notes/Report: Test performed by [facility] [address] [facility] , [address], [place] [address] Zan Al MD, Pre Billing Specialist CLIA: [id number] Sodium 141 135-145 mmol/L Potassium 4.6 3.5-5.3 [...] Interpretation:Normal Performing Lab: Notes/Report: Test performed by [facility], [address] , [address], [place] [address] Zan Al MD, Pre Billing Specialist CLIA: [id number] Albumin/Creatinine Ratio, Urine 12 0-30 ug/m g [...] daily; Duration: 90 days Active Vital Signs Weight 190.6 lbs 10/01/2024 Blood pressure systolic 100 mm Hg 10/01/19 25 Blood pressure diastolic 68 mm Hg 025 Heart Rate 81 /min 10/01/2024 Height 65 in 10/01/2024 BMI 31.71 kg/m2 10/01/2024 Encounters Encounter Location Date Provider Diagnosis [facility] [address] [facility] [address] [place] [id number] 10/01/2024 Jinny Santos Ischemic cardiomyopa thy I25.5 [...] 11/25/2025 10:00:00 AM, [address] [facility], [address], [place], [id number], Progress Notes * SHAYNA KELLER:1955 ( 69 yo F)Acc No.[id number]:10/01/2024 Progress Notes Patient: JACKIE FITZGERALD Provider: Jinny Santos M.D. :1955 A ge:69 Y S ex:Female Date:10/01/2024 Address:[address]-[id number] Subjective: * Chief Complaints: * 1 [...] Hypothyroidism, COVID 19, 09/2021, CTA Brain/ Neck- [facility], 01/25/2022, COVID 19 06/07/2022, 03/03/22 Echocardiogram, COVID 19 Booster 10/06/22, COVID 19 Booster 2022, Flu shot 2022, Neg Cologuard 01/31/2024. * Surgical History: B ilateral irridectomy, [facility] December 112023. * Hospitalization/Major Diagno stic [facility] [place]. * Family History: F ather: alive. [...] * Procedure Codes: 9 4760 [place], [address] CBC WITH AUTO DIFF, 45[address] GLYCATED HEMOGLOBIN TEST, Modifiers: QW , G2211 Complex e/m visit add on * Follow Up: 2 Months * Images: Billing Information: * Visit Code: 39532 Office Visit, Est Pt., Level 4. * Procedure Codes: [address] [place]. [address] CBC WITH AUTO DIFF. 58234 GLYCATED HEMOGLOBIN TEST. Modifiers: QW G2211 Complex e/m visit add on. * Electronic signature of Jinny Snatos MD on 06/07/2025 at 01:12 PM EDT Sign off status: Pending * Provider: Jinny Santos M.D. Date: 0 10/01/2024 Generated for Asad francisco/Dario/Nohemy on: 0 06/07/2025 01:12 PM EDT History and Physical Notes * [...]
--- OUTSIDE RECORDS SUMMARY | 2024-11-05 06:00 | XMS_ITS ---
Author Organization [facility] Address [address] [facility] [address] [facility] [address] [place] [phone] Care Team Providers Care Cross Roller Name Role Phone Jinny Santos Primary Care Provider Jinny SANTOS Unavailable Unavailable REASON FOR VISIT 6 month check Encounters Encounter Location Date Provider Diagnosis [facility] [address] [place] [phone] 11/05/2024 Jinny Santos Plan Of Treatment Next Appt Details Provider Name:Jinny Lacy er, 11/25/2025 10:00:00 AM, [address], [address], [place], [id number], Progress Notes * LIBERTAD KELLEROB:1955 ( 69 yo F)Acc No.[id number]:11/05/2024 Progress Notes Patient: JACKIE FITZGERALD Provider: Jinny Santos M.D. :1955 A ge:69 Y S ex:Female Date:11/05/2024 Address:[place] [address], [address] [place] [address] Subjective: * Chief Complaints: * 1 . 6 month check. * Medical History: Objective: * Vitals: Assessment: Plan: * Treatment: * Images: Billing Information: * Visit Code: * Procedure Codes: * Electronic signature of Jinny Santos MD on 06/07/2025 at 01:13 PM EDT Sign off status: Pending * Provider: Jinny Santos M.D. Date: 0 11/05/2024 Generated for Asad francisco/Dario/Pepeitting on: 0 06/07/2025 01:13 PM EDT
--- OUTSIDE RECORDS SUMMARY | 2025-01-21 07:00 | XMS_ITS ---
Author Organization [facility] Address [address] [facility] [address] [place] [id number] Care Team Providers Care Pearler Name Role Phone Jinny Santos Primary Care Provider Jinny SANTOS Unavailable Unavailable Allergies Allergen (clinical drug ingredient) Drug/Non Drug Allergy documented on EMR Reaction Allergy Type Onset Date Status Alteplase Unknown Drug Allergy Active cefdinir Cefdinir rash Drug Allergy Active Results Component Value Reference Range Notes Glycohemoglobin A1c (in hous e) Reviewed date:01/21/2025 04:37:50 PM Interpretation: Performing Lab: Notes/Report: glycohemoglobin 6.1% 5 - 6.5 % P-Basic Metabolic Panel (BMP ) Reviewed date:04/12/2025 09:27:13 AM Interpretation:gluc 119, Cr 1.16, gfr 50 Performing Lab: Notes/Report: Test performed by [employer], [employer] [facility] , [address], [place] [address] Zan Al MD, Crown Ironer Operator CLIA: [id number] Sodium 139 135-145 mmol/L Potassium 4.7 3.5-5.3 mmol/L Chloride 106 97-108 mmol/L CO2 23 22-32 mmol/L Glucose 119 65-99 mg/dL BUN 23 8-23 mg/dL Creatinine 1.16 0.50-1.00 mg/dL Calcium 9.8 8.6-10.4 mg/dL eGFR by Creatinine 50 >59 mL/min/1.73m2 REASON FOR VISIT 2 month ckup, needs Diabetic Eye Exam Medications Medication SIG (Take, Route, Frequency, Duration) Notes Start Date End Date Status Fish Oil 1000MG 1 TAB(S) P.O. ONCE A DAY Not-Taking Aspirin 81 81 MG 1 TAB(S) ONCE A DAY; Duration: 30 DAYS Not-Taking Entresto 24-26 MG 1 tablet Orally Twic e a day; Duration: 30 day(s) Not-Taking Levothyroxine Sodium 50 MCG TAKE 1 TABLET BY MOUTH EVERY DAY; Duration: 90 Active Farxiga 10 MG 1 tablet Orally Once a day; Duration: 30 day(s) Not-Taking Famotidine 40 MG 1 tablet Orally Once a day; Duration: 30 day(s) 05/23/2024 Active glipiZIDE 10 MG 1 tab(s) orally once a day; Duration: 90 days Active Vitamin B-12 1000 MCG 1 tab(s) orally on 08/25/2011 Active Lipitor 80 MG 1 tab(s) orally once a day (at bedtime); Duration: 90 days Active metFORMIN HCl 1000 MG take 1 tablet once daily; Duration: 90 days Active Metoprolol Succinate ER 25 MG 1/2 Orally qd Active Lysine 1 TABLET 1 TAB(S) ONCE A DAY Active Align 4 MG as directed Orally Active Plavix 75 MG 1 tablet Orally Once a day; Duration: 30 day(s) Active Metamucil Premium Blend 52.63 % as directed Orally once a day Active Mucinex DM 30-600 MG 1 tablet as needed Orally every 12 hrs Active Valsartan 40 MG 1 tablet Orally Twic e a day; Duration: 30 day(s) Active Eliquis 5 MG as directed Orally twice a day Active Problems Problem Type SNOMED Code ICD Code Onset Dates Problem Status W/U Status Risk Notes Problem Peripheral circulatory disorder associated with diabetes mellitus (544213291) Type 2 diabetes mellitus with other circulatory complications (E11.59) Active confirmed Problem Body mass index 30.00 to 34.99 (15224489739130 7) BMI 31.0-31.9,adult (Z68.31) Active confirmed Vital Signs Weight 187.6 lbs 01/21/2025 Blood pressure systolic 110 mm Hg 01/22/20 25 Blood pressure diastolic 70 mm Hg 025 Heart Rate 66 /min 01/21/2025 Height 65 in 01/21/2025 BMI 31.21 kg/m2 01/21/2025 Encounters Encounter Location Date Provider Diagnosis [place] [address] [facility] [address] [facility] [address] [place], [place] [id number] 01/21/2025 Jinny Santos Type 2 diabetes osbaldo itus E11.9 ; Essential hypertension I10 ; History of ST elevation myocardial infarction (STEMI) I25.2 ; Ischemic cardiomyopathy I25.5 ; Thumb tendonitis M77.8 ; Hypothyroidism (acquired) E03.9 ; Hyperlipidemia, unspecified E78.5 ; Type 2 diabetes mellitus with other circulatory complications E11.59 and BMI 31.0-31.9,adult Z68.31 Assessments Encounter Date Diagnosis (ICD Code) Assessment Notes Treatment Notes Treatment Clinical Notes Section Notes 01/21/2025 Type 2 diabetes mellitus (ICD-10 - E11.9) 01/21/2025 Essential hypertension (ICD-10 - I10) 01/21/[address] elevation myocardial infarction (STEMI) (ICD-10 - I25.2) 01/21/2025 Ischemic cardiomyopathy (ICD-10 - I25.5) 01/21/2025 Thumb tendonitis (ICD-10 - M77.8) 01/21/2025 Hypothyroidism (acquired) (ICD-10 - E03.9) 01/21/2025 Hyperlipidemia, unspecified (ICD-10 - E78.5) 01/21/2025 Type 2 diabetes mellitus with other circulatory complications (ICD-10 - E11.59) 01/21/2025 BMI 31.0-31.9,adult (ICD-10 - Z68.31) Plan Of Treatment Next Appt Details Follow Up: 4 Months, Reason: Provider Name:Jinny Lacy , 11/25/2025 10:00:00 AM, [address], [address], [facility] [place], [id number], Progress Notes * LIBERTAD KELLEROB:1955 ( 69 yo F)Acc No.[id number]:01/21/2025 Progress Notes Patient: JACKIE FITZGERALD Provider: Jinny Santos M.D. :1955 A ge:69 Y S ex:Female Date:01/21/2025 Address:[address], [id number] Subjective: * Chief Complaints: * 1 . 2 month ckup. 2. needs Diabetic Eye Exam. * HPI: C ardiology: The patient is here today for a check up on CAD, Hypertension and Diabetes. Pt states she is doing good and denies any new concerns. Pt is not fasting. Pt states she is still having pain in the left thumb and radiates up the left arm. Denies : Chest Pain. D enies : Short of Breath. D enies : Dizziness. D enies : Palpitations. * ROS: D ERMATOLOGY: no R richie. n o H joaquin. G ASTROENTEROLOGY: no N ausea. n o V omiting. n o D iarrhea.? U ROLOGY: no D ifficulty urinating. n o B lood in urine. * Medical History: F ibrocystic Breast Disease, Hypercholestrolemia, Type 2 Diabetes, Hypothyroidism, COVID 19, 09/2021, CTA Brain/ Neck- [facility], 01/25/2022, COVID 19 06/07/2022, 03/03/22 Echocardiogram, COVID 19 Booster 10/06/22, COVID 19 Booster 2022, Flu shot 2022, Neg Cologuard 01/31/2024. * Surgical History: B ilateral irridectomy, [facility] December 112023. * Hospitalization/Major Diagno stic [facility] 12/02/2018. * Family History: F ather: alive. [...] ,Years: , Determination:. * Medications: T aking Valsartan 40 MG Tablet 1 tablet Orally Twice a day , Taking Eliquis 5 MG Tablet as directed Orally twice a day , Taking Mucinex DM 30-600 MG Tablet Extended Release 12 Hour 1 tablet as needed Orally every 12 hrs , Taking Metamucil Premium Blend 52.63 % Powder as directed Orally once a day , Taking Align 4 MG Capsule as directed Orally , Taking Plavix 75 MG Tablet 1 [...] tablet Orally Once a day , Taking glipiZIDE 10 MG Tablet 1 tab(s) orally once a day , Taking Lipitor 80 MG Tablet 1 tab(s) orally once a day (at bedtime) , Taking metFORMIN HCl 1000 MG Tablet take 1 tablet once daily , Taking Levothyroxine Sodium 50 MCG Tablet TAKE 1 TABLET BY MOUTH EVERY DAY , Not-Taking Farxiga 10 MG Tablet 1 tablet Orally Once a day , Not-Taking Aspirin 81 81 MG 1 TAB(S) ONCE A DAY , Not-Taking Entresto 24-26 MG Tablet 1 tablet Orally Twice a day , Not-Taking Fish Oil 1000MG 1 TAB(S) P.O. ONCE A DAY , Medication List reviewed and reconciled with the patient * Allergies: C efdinir: rash, Alteplase. Objective: * Vitals: W t: 187.6, Temp: 98.2, BP: 110/70, HR: 66, O2 Sat: 98% on RA, Nurse: PHILL, Ht: 65, BMI:31.21. * Examination: G eneral Examination: General Appearance: N AD. H EENT: u nremarkable.?Oral cavity: n o lesions, mucosa moist and WNL, no erythema. N joe: s upple, no lymphadenopathy. C hest: n ormal shape and expansion. H eart: R SR , aortic murmur /. Lungs: c lear to auscultation. A bdomen: soft and nontender, no organomegaly or masses. N eurologic Exam: I ntact, gait normal. S kin: n ormal, no rash. P eripheral pulses: n ormal. B ack: normal, mild dorsal kyphosis. E xtremities: n o leg edema, left thumb with tendonitis. Assessment: * Assessment: 1. E ssential hypertension - I10 2 . T ype 2 diabetes mellitus - E11.9 3 . H istory of ST elevation myocardial infarction (STEMI) - I25.2 4 . I schemic cardiomyopathy - I25.5 5 . T humb tendonitis - M77.8 6 . H ypothyroidism (acquired) - E03.9 7 . H yperlipidemia, unspecified - E78.5 8 . T ype 2 diabetes mellitus with other circulatory complications - E11.59 9 . B [place] 31.0-31.9,adult - Z68.31 Plan: * Treatment: Value Reference Range B UN 23 8-23 - mg/dL * C alcium 9.8 8.6-10.4 - mg/dL * C hloride 106 97-108 - mmol/L * C O2 23 22-32 - mmol/L * C reatinine 1.16 H 0.50-1.00 - mg/dL * G lucose 119 H 65-99 - mg/dL * P otassium 4.7 3.5-5.3 - mmol/L * S odium 139 135-145 - mmol/L * e GFR by Creatinine 50 L >59 - mL/min/1.73m2 * Jessica Blandon 04/12/2025 09:26 :57 AM EDT > See phone encounter 2.?Type 2 diabetes mellitus?LAB: Glycohemoglobin A1c (in house) (Collection Date & Time - 01/21/2025)* Value Reference Range g lycohemoglobin 6.1% 5 - 6.5 % * Claudia Oden 01/21/2025 11 :25:40 AM > Provider reviewed results while patient in office. * Procedure Codes: G 2211 Complex e/[place], [address] GLYCATED HEMOGLOBIN TEST, Modifiers: QW , 3044F HG A1C LEVEL LT 7.0%, G8752 MOST RECENT SYSTOLIC BP < 140MM HG, G8754 MOST RECENT DIASTOLIC BP < 90MM HG * Follow Up: 4 Months * Images: Billing Information: * Visit Code: 42769 Office Visit, Est Pt., Level 4. * Procedure Codes: G2211 Complex e/[place]. [address] GLYCATED HEMOGLOBIN TEST. Modifiers: QW 3044F HG A1C LEVEL LT 7.0%. G8752 MOST RECENT SYSTOLIC BP < 140MM HG. G8754 MOST RECENT DIASTOLIC BP < 90MM HG. * Electronic signature of Jinny Santos MD on 06/07/2025 at 01:14 PM EDT Sign off status: Pending * Provider: Jinny Santos M.D. Date: 0 01/21/2025 Generated for Marlenei ng/Faprashantg/eTransmitting on: 0 06/07/2025 01:14 PM EDT History and Physical Notes * HPI (History of Present Illness) Category Sub-Category Detail Notes Category Not es Cardiology Short of Breath Chest Pain Palpitations Dizziness Examination Category Sub-Category Detail Notes Category Not es General Examination HEENT: unremarkable Heart: RSR , aortic murmur 1/6 Lungs: clear to auscultatio n Abdomen: soft and nontender, no organomegaly or masses Extremities: no leg edema, left t humb with tendonitis General Appearance: NAD Skin: normal, no rash Neurologic Exam: Intact, gait normal Neck: supple, no lymphaden opathy Oral cavity: no lesions, mucosa m oist and WNL, no erythema Peripheral pulses: normal Back: normal, mild dorsal kyphosis Chest: normal shape and exp ansion
--- OUTSIDE RECORDS SUMMARY | 2025-04-26 14:45 | XMS_ITS | Encounter Summary ---
Author Organization Healthcare Address [address] [place] [address] Care Team Providers Care Manager Chemistry Name Role Phone Onesimo Asencio MD Primary Care Provider [phone] Royal Narvaez MD Unavailable Encounter Details Date Type Department Care Team (Latest Contact Info) Description 04/26/2025 2:45 PM EDT - 04/26/2025 11:59 PM EDT Hospital Encounter Cardiac Imaging [address] [place] [address] Encounter for loop recorder check Discharge Disposition: [...] drink first t kush in the morning (EYE-VICE PRESIDENT OF HUMAN RESOURCES) to steady your nerves or to get [...] 5 MG tabletIndications :PAF (paroxysmal atrial fibrillation) Take 1 tablet (5 mg) by mouth [...] Care Team (Late st Contact Info) Description 08/05/2025 11:40 AM EST Office Visit [facility] [place] [address] [place] [address] Maria Ines Bui MD [address] [place] [address] 02/21/2026 8:20 AM EDT Office Visit [facility] [address] [place] [address] Sadaf Saleh APRN [address] [facility] [address] [place] [address] documented as of this encounter Procedures Procedure Name Priority Date/Time Associated Diagnosis Comments CARDIAC DEVICE CHECK - REMOTE - LOOP RECORDER (ILR) Routine 04/26/2025 4:03 PM EDT Encounter for loop recorder check documented in this encounter Results * CARDIAC DEVICE CHECK - REMOTE - LOOP RECORDER (ILR) (04/26/2025 4:03 PM EDT) Anatomical Region Laterality Modality Other Narrative 04/26/2025 4:09 PM EDT Implantable loop recorder (ILR) interrogation. Battery remaining in service adequate. EGM's reviewed against indication for implant and diagnosis, found to be unremarkable. Riley x2, egms demonstrate undersensing Presenting rhythm is sinus Lily Ca [...] documented as of this encounter Care Teams Manager Chemistry Relationship Specialty Start Date End Date Onesimo Asencio MD [address] [place] [address] PCP - General 01/25/22 Royal Narvaez MD [address] [place] [address] Consulting Physician Neurology 10/28/22 documented as of this encounter
--- OUTSIDE RECORDS SUMMARY | 2025-05-14 16:00 | XMS_ITS | Encounter Summary ---
Author Organization Healthcare Address [address] [place] [address] Care Team Providers Care Senior Project Manager Name Role Phone Onesimo Asencio MD Primary Care Provider [phone] Royal Narvaez MD Unavailable Encounter Details Date Type Department Care Team (Latest Contact Info) Description 05/14/2025 4:00 PM EDT - 05/14/2025 11:59 PM EDT Hospital Encounter Cardiac Imaging [address] [place] [address] Encounter for loop recorder check Discharge Disposition: [...] drink first t kush in the morning (EYE-VOLUNTEER SERVICES DIRECTOR) to steady your nerves or to get [...] Description 08/05/2025 11:40 AM EST Office Visit [facility] [place] [facility] [address] [place] [address] Maria Ines Bui MD [address] [place] [address] 02/21/2026 8:20 AM EDT Office Visit [facility] [address] [place] [address] Sadaf Saleh APRN [address] [facility] [address] [place] [address] documented as of this encounter Procedures Procedure Name Priority Date/Time Associated Diagnosis Comments CARDIAC DEVICE CHECK CHECK - REMOTE ALERT Routine 05/14/2025 4:20 PM EDT Encounter for loop recorder check documented in this encounter Results * CARDIAC DEVICE CHECK - REMOTE ALERT - LOOP RECORDER (ILR) (05/14/2025 4:20 PM EDT) Anatomical Region Laterality Modality Other Narrative 05/15/2025 9:18 AM EDT [facility] EP - Remote CIED alert (non-scheduled) Name: Nathen Marshall Date: 05/15/2025 : 1955 Age: 69 y.o. Indication for alert: Tachy event Device: Permastone Mechanic: Medtronic implantable locker plant attendant (ICM) Summary: Tachy on 05/07 for 5 [...] documented as of this encounter Care Teams Senior Project Manager Relationship Specialty Start Date End Date Onesimo Asencio MD [address] [place] [address] PCP - General 01/25/22 Royal Narvaez MD [address] [facility] [address] [place] [address] Consulting Physician Neurology 10/28/22 documented as of this encounter
--- OUTSIDE RECORDS SUMMARY | 2025-05-24 08:20 | XMS_ITS | Encounter Summary ---
Author Organization [facility] Address [address] [place] [address] Care Team Providers Care Coach Driver Name Role Phone Onesimo Asencio MD Primary Care Provider [phone] Royal Narvaez MD Unavailable Reason for Referral * Consultation (Routine) - Authorized Specialty Diagnoses / Procedures Referred By Contava t Referred To Contact Diagnoses Stage 3a chronic kidney disease (CMS/HCC) Sadaf Saleh APRN [address] [address] Phone: tel: fax: Referral ID Status Reason Start Date Expiration Date V isits Requested Visits Authorized [id number] Authorized 05/24/2025 11/23/2026 1 1 Reason for Visit * Reason Comments Follow-up Encounter Details Date Type Department Care Team (Late st Contact Info) Description 05/24/2025 8:20 AM EDT Office Visit [facility] [address] [place] [phone] Sadaf Saleh APRN [address] [address] Stage 3a chronic kidney disease (CMS/HCC) (Primary Dx); Coronary artery disease involving [place] coronary artery of [place] heart, unspecified whether angina present; Primary hypertension; Diabetes mellitus due to underlying condition with diabetic chronic kidney disease, unspecified CKD stage, unspecified whether intermediate designer insulin use (CMS/HCC); Chronic kidney disease-mineral and [...] drink first t kush in the morning (EYE-AGRONOMY MANAGER) to steady your nerves or to get [...] Creatinine baseline ~1.1, elevated to 1.5-1.7 after [place] 08/2024 Patient denies any known previus AKIs. 08/2024 [place], s/p 2 stents. Since her lat visit [...] Labs scanned in to media tab of [employer] from an outside facility. Labs completed on 05/20/25 Imaging: Renal ultrasound 05/21/24 normal on review ASSESSMENT/PLAN CKD3b Likely r/t DM/HTN Creatinine ~1.1-1.4, now 1.1 egfr 49 UA- glucose HTN- controlled DM- controlled per patient CAD- recent [place] s/p 2 stents (08/17/24) CKD BMD- PTH, ca vit d stable Anemia of Chronic disease-goal hgb >11 Had lengthy discussion with patient regarding CKD and CKD progression. Encourged glucose and BP control. Discussed initiation of SGL2. Patient noted she will discuss with PCP and cobbler upper. If started, it may slightly increase in [...] Patient confirms they are physically located in [place]? Yes If the patient is not physically located in [place], the provider has confirmed with [facility] thatthe provider is authorized to provide services in patient's stated location? N/A Provider Location: [facility] facility Audio and video or audio only? Audio only Total visit time: 26 minutes [1] Past Medical History: Diagnosis Date Anxiety Diabetes ([facility]) High blood pressure Migraines Overweight Stroke (cerebrum) ([facility]) documented in this encounter Plan of Treatment Upcoming Encounters Date Type Department Care Team (Late st Contact Info) Description 08/05/2025 11:40 AM EST Office Visit [facility] [place] [address] [facility] [place] [address] Maria Ines Bui MD [address] [place] [address] 02/21/2026 8:20 AM EDT Office Visit [facility] [address] [place] [address] Sadaf Saleh APRN [address] [address] Scheduled Orders Name Type Priority Associated Diagnoses Orde r Schedule CBC W/O Differential Lab Routine Stage 3a chronic kidney disease ([facility]) Expected: 05/24/2025 (Approximate), Expires: 11/21/2026 Protein, Random, Urine with Creatinine Lab Routine Stage 3a chronic kidney disease ([facility]) Expected: 05/24/2025 (Approximate), Expires: 11/21/2026 PTH Intact Total Lab Routine Stage 3a chronic kidney disease ([facility]) Expected: 05/24/2025 (Approximate), Expires: 11/21/2026 Renal Function Panel, Plasma Lab Routine Stage 3a chronic kidney disease ([facility]) Expected: 05/24/2025 (Approximate), Expires: 11/21/2026 Urinalysis with [...] disease (CMS/HCC)- Primary Coronary artery disease involving [place] coronary artery of [place] heart, unspecified whether angina present Primary hypertension Unspecified essential hypertension Diabetes mellitus due to underlying condition with diabetic chronic kidney disease, unspecified CKD stage, unspecified whether assisted insulin use Chronic kidney disease-mineral and bone disorder documented in this encounter Additional Health Concerns Assessment Noted Time A fall risk assessment has been complete d for the patient 01/28/2025 2:01 PM EDT A Body Mass Index follow-up plan has been documented for the patient 05/24/2025 10:04 AM EDT documented as of this encounter Care Teams Coach Driver Relationship Specialty Start Date End Date Onesimo Asencio MD [address] [place] [address] PCP - General 01/25/22 Royal Narvaez MD [address] [place] [address] Consulting Physician Neurology 10/28/22 documented as of this encounter
--- OUTSIDE RECORDS SUMMARY | 2025-05-27 06:15 | XMS_ITS ---
Author Organization [facility] Address [address] [place] [id number] Care Team Providers Care Transit Planning Manager Name Role Phone Jinny Santos Primary Care Provider [phone] Jinny SANTOS Unavailable Unavailable Allergies Allergen (clinical [...] Orally every 12 hrs Not-Taking Vital Signs Weight 190.4 lbs 05/27/2025 Blood pressure systolic 118 mm Hg 05/27/20 25 Blood pressure diastolic 70 mm Hg 025 Heart Rate 74 /min 05/27/2025 Height 65 in 05/27/2025 BMI 31.68 kg/m2 05/27/2025 Encounters Encounter Location Date Provider Diagnosis [facility] [address] [facility] [address] [phone] 05/27/2025 Jinny Santos Type 2 diabetes osbaldo [...] [address], [address], [place], [place], [id number], Progress Notes * LIBERTAD KELLEROB:1955 ( 69 yo F)Acc No.[id number]:05/27/2025 Progress Notes Patient: JACKIE FITZGERALD Provider: Jinny Santos M.D. :1955 A ge:69 Y S ex:Female Date:05/27/2025 Address:[address], [id number] Subjective: * Chief Complaints: * 1 . [...] had labs done last week downstairs at [facility] lab. Pt sts she does need refills on her medications today as well. U rology: Lab obtained 05/20 per nephrology showed: BUN=23, Creat=1.10, GFR=49, Qkm=851 PTH=97.5, Ca=9.8 K=5.1, Sg=020. C ardiology: Cardiology follow-up June 17. LAST ECHO 11/19/24 WITH EF=40-45%. * Medical History: F ibrocystic Breast Disease, Hypercholestrolemia, Type 2 Diabetes, Hypothyroidism, COVID 19, 09/2021, CTA Brain/ Neck- [facility], 01/25/2022, COVID 19 06/07/2022, 03/03/22 Echocardiogram, COVID 19 Booster 10/06/22, COVID 19 Booster 2022, Flu shot 2022, Neg Cologuard 01/31/2024, ECHO with EF=40-45%, 11/19/24. * Surgical History: B ilateral irridectomy, [facility] 1,2, 2024. * Hospitalization/Major Diagno stic Procedure: [facility] , [facility]- [facility] 12/02/2018. * Family History: F ather: alive. [...] G 2211 Complex e/[place], [address] CAPILLARY BLOOD DRAW, 98125 GLYCATED HEMOGLOBIN TEST, Modifiers: QW , 3044F HG A1C LEVEL LT 7.0%, 1036F TOBACCO NON-USER, G8950 PREHTN/HTN BP DOC INDCD F/U DOC, G8752 MOST RECENT SYSTOLIC BP < 140MM HG, G8754 MOST RECENT DIASTOLIC BP < 90MM HG * Follow Up: 6 Months * Images: Billing Information: * Visit Code: 16771 Office Visit, Est Pt., Level 4. * Procedure Codes: G2211 Complex e/[place]. [address] CAPILLARY BLOOD DRAW. 87265 GLYCATED HEMOGLOBIN TEST. Modifiers: QW 3044F HG [...] 0 05/27/2025 Generated for Marlenei ng/Faprashantg/eTransmitting on: 0 06/07/2025 01:13 PM EDT History and Physical Notes * [...] had labs done last week downstairs at [facility] lab. Pt sts she does need refills [...]
--- OUTSIDE RECORDS SUMMARY | 2025-05-27 11:20 | XMS_ITS | Encounter Summary ---
Author Organization Healthcare Address [address] [place] [address] Care Team Providers Care Director Museum Or Zoo Name Role Phone Onesimo Asencio MD Primary Care Provider [phone] Royal Narvaez MD Unavailable Encounter Details Date Type Department Care Team (Latest Contact Info) Description 05/27/2025 11:20 AM EDT - 05/27/2025 11:59 PM EDT Hospital Encounter Cardiac Imaging [address] [place] [address] Implantable loop recorder present Discharge Disposition: Home [...] drink first t kush in the morning (EYE-LAYBOY OPERATOR) to steady your nerves or to get [...] Description 08/05/2025 11:40 AM EST Office Visit [facility] [place] [address] [place] [address] Maria Ines Bui MD [address] [place] [address] 02/21/2026 8:20 AM EDT Office Visit [facility] [address] [place] [address] Sadaf Saleh, HR INTERN [address] [facility] [address] [place] [address] documented as of this encounter [...] documented as of this encounter Care Teams Director Museum Or Zoo Relationship Specialty Start Date End Date Onesimo Asencio MD [address] [place] [address] PCP - General 01/25/22 Royal Narvaez MD [address] [place] [address] Consulting Physician Neurology 10/28/22 documented as of this encounter
--- OUTSIDE RECORDS SUMMARY | 2025-06-07 13:13 | XMS_ITS | Encounter Summary ---
Author Organization Healthcare Address [address] [place] [address] Care Team Providers Care Yarding Engineer Name Role Phone Onesimo Asencio MD Primary Care Provider [phone] Royal Narvaez MD Unavailable Encounter Details Date Type Department Care Team (Latest Contact Info) Description 05/27/2025 Travel Social History Tobacco Use Types Packs/Day [...] drink first t kush in the morning (EYE-CHILD CARE ATTENDANT SCHOOL) to steady your nerves or to get [...] Description 08/05/2025 11:40 AM EST Office Visit [facility] [place] [address] [place] [address] Maria Ines Bui MD [address] [place] [address] 02/21/2026 8:20 AM EDT Office Visit [facility] [address] [place] [address] Sadaf Saleh, GLASS CARRIER [address] [facility] [address] [place] [address] documented as of this encounter Visit Diagnoses Not on filedocumented in this encounter Additional Health Concerns Assessment Noted Time A fall risk assessment has been complete d for the patient 01/28/2025 2:01 PM EDT A Body Mass Index follow-up plan has been documented for the patient 05/24/2025 10:04 AM EDT documented as of this encounter Care Teams Yarding Engineer Relationship Specialty Start Date End Date Onesimo Asencio MD [address] [place] [address] PCP - General 01/25/22 Royal Narvaez MD [address] [facility] [address] [place] [address] Consulting Physician Neurology 10/28/22 documented as of this encounter
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
--- OUTSIDE RECORDS SUMMARY | 2025-06-07 13:13 | XMS_ITS | Clinical Summary ---
Author Organization [facility] Address [address] [place] [address] Care Team Providers Care Grain I Farmworker Name Role Phone Onesimo Asencio MD Primary Care Provider [phone] Royal Narvaez MD Unavailable Allergies Active Allergy [...] 5 MG tabletIndicatio ns:PAF (paroxysmal atrial fibrillation) Take 1 tablet (5 [...] left anterior descending coronary artery 10/16/2024 Abnormal result of cardiovascular function study 10/31/2023 Atypical angina 10/31/2023 CAD (coronary artery disease) 10/31/2023 Daytime somnolence 10/31/2023 Diabetes mellitus 10/31/2023 Diastolic dysfunction 10/31/2023 Dyspnea 10/31/2023 Elevated left ventricular end-diastolic pressure (LVEDP) 10/31/2023 Headache 10/31/2023 HLD (hyperlipidemia) 10/31/2023 HTN (hypertension) 10/31/2023 ALMA (obstructive sleep apnea) 10/31/2023 Palpitations 10/31/2023 Right bundle branch block 10/31/2023 Snoring 10/31/2023 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 08/02/2022 Resolved Problems Problem Noted Date Diagnosed Date Resolved Date Abnormal EKG 10/31/2023 06/02/2025 Bronchitis 10/31/2023 06/02/2025 Chest pain 10/31/2023 06/02/2025 Encounter for laboratory ana ting for COVID-19 virus 10/31/2023 06/02/2025 Fatigue 10/31/2023 06/02/2025 Sinusitis 10/31/2023 06/02/2025 TIA (transient ischemic attack) 08/01/2022 08/02/2022 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 [address] [place] [phone] Sadaf Saleh APRN Stage 3a chronic kidney disease ([facility]) (Primary Dx); Coronary artery disease involving tribal coronary artery of tribal heart, unspecified whether angina present; Primary hypertension; Diabetes mellitus due to underlying condition with diabetic chronic kidney disease, unspecified CKD stage, unspecified whether termite control representative insulin use ([facility]); Chronic kidney disease-mineral and bone disorder 05/14/2025 4:00 PM EDT - 05/14/2025 11:59 PM EDT Hospital Encounter Cardiac Imaging [address] [place] [address] Encounter for loop recorder check Discharge Disposition: Home or Self Care 05/14/2025 Travel 04/26/2025 2:45 PM EDT - 04/26/2025 11:59 PM EDT Hospital Encounter Cardiac Imaging [address] [place] [address] Encounter for loop recorder check Discharge Disposition: Home or Self Care 04/26/2025 Travel 03/26/2025 9:53 AM EDT - 03/26/2025 11:59 PM EDT Hospital Encounter Cardiac Imaging [address] [place] [address] Encounter for loop recorder check Discharge Disposition: Home or Self Care 03/26/2025 Travel from Last 3 Months Immunizations Immunization Administration Dates Next Due Influenza, High-dose, Split Virus, Trivalent, Injectable, preservative free 08/04/2020 Influenza, Unspecified 08/22/2009 Influenza, high-dose, quadrivalent 06/21/2022,,08/04/2020 Influenza, injectable, quadr ivalent, preservative free 07/20/2023 Influenza, seasonal, injectable 04/17/2010,06/04 Influenza, trivalent, adjuvanted 07/04/2024 [employer] COVID-19 Vaccine (Blue Cap) 18+ 11/20/19 21 Moderna COVID-19 Vaccine (Re d Cap) 12+ years 07/23/2023,07/15/2021 PPD Skin Test (TB Skin Test) 04/17/2010,04/16/20 08 Pneumococcal Conjugate PCV 13 07/09/2019 Pneumococcal Polysaccharide PPV23 08/04/2020 Tdap 08/22/2009 Social History Tobacco Use Types Packs/Day Years [...] drink first t kush in the morning (EYE-GLIDING PILOT INSTRUCTOR) to steady your nerves or to get [...] Description 08/05/2025 11:40 AM EST Office Visit [facility] [place] [address] [facility] [place] [address] Maria Ines Bui MD [address] [place] [phone] 02/21/2026 8:20 AM EDT Office Visit [facility] [address] [place] [address] Sadaf Saleh, FAN BLADE ALIGNER [address] [facility] [address] [place] [address] Health Maintenance Due Date Last Done Comments [facility]-Bone Density Scan 1955 [facility]-Medicare Annual Wellness (AWV) 1955 [facility]-/Child/Adol SDOH Screenings 1955 Diabetes: Dental Exam 1965 [...] 01/29/2023 08/01/2022, 01/26/2022 [facility]-Depression Screening 10/31/2024 10/31/2023 [id number] Vaccine ( season) 2025 07/04/2024, 07/23/2023, 07/20/2023, Additional history exists [facility]-Influenza Vaccine (#1) 05/13/202507/04, 07/20/2023, 06/21/2022, Additional history exists FIT-DNA 01/30/2027 01/31/2024 [facility]-Colorectal Cancer Screening 01/30/2027 [facility]-Pneumococcal Vaccine: 50+ Years Completed 08/04/2020, 07/09/2019 [facility]-Hepatitis C Screening Completed 01/26/2022 [facility]-Obesity Intervention Completed 025, 01/28/2025, 10/29/2024, Additional history exists HPV Vaccines Aged Out [...] 11:44 AM EDT Implantable loop recorder present CARDIAC DEVICE CHECK CHECK - REMOTE ALERT Routine 05/14/2025 4:20 PM EDT Encounter for loop recorder check CARDIAC DEVICE CHECK - REMOTE - LOOP RECORDER (ILR) Routine 04/26/2025 4:03 PM EDT Encounter for loop recorder check CARDIAC DEVICE CHECK - REMOTE - LOOP RECORDER (ILR) Routine 03/26/2025 10:20 AM EDT Encounter for loop recorder check HEMOGLOBIN A1C Add-On 08/01/2022 5:49 PM EST HEPATITIS C ANTIBODY - ED W/REFLEX TO HCV QUANT PCR Routine 01/26/2022 1:38 AM EDT from Last 3 Months or Most Recently Relevant to Health Maintenance Results * CARDIAC DEVICE CHECK - REMOTE - LOOP RECORDER (ILR) (05/27/2025 11:44 AM EDT) Only the most recent of3 resultswithin the time period is included. Anatomical Region Laterality Modality Other Narrative 05/27/2025 2:24 PM EDT Implantable loop recorder (ILR) interrogation. Battery remaining in service adequate. EGM's reviewed against indication for implant and diagnosis, found to be unremarkable. Presenting rhythm is sinus. Tachy event, duration 5 seconds, previously reported us Lily Ca Elizabet FRAZIER CV IMPLANTABLE CARDIAC DEV ICE PROCEDURES Final Result * CARDIAC DEVICE CHECK - REMOTE ALERT - LOOP RECORDER (ILR) (05/14/2025 4:20 PM EDT) Anatomical Region Laterality Modality Other Narrative 05/15/2025 9:18 AM EDT [facility] EP - Remote CIED alert (non-scheduled) Name: Nathen W Major Date: 05/15/2025 : 1955 Age: 69 y.o. Indication for alert: Tachy event Device: Community Board Member: [employer] implantable monitoring engineer (ICM) Summary: Tachy on 05/07 for 5 seconds, QRS complexes appear wider with change in morphology. See attached report for CIED details Will continue to monitor for further NSVT. Lily Mcneal FAN BLADE ALIGNER CV IMPLANTABLE CARDIAC DEV ICE PROCEDURES Final Result * (ABNORMAL) Hemoglobin A1c (08/01/2022 5:49 PM EST) Hemoglobin A1c 6.7(H) <5.7 % 08/01/2022 10:05 PM EST [facility] Blood Venous blood specimen / Unknown Venipuncture / Unknown 08/01/2022 5:49 PM EST 08/01/2022 5:51 PM EST Narrative [facility] - 08/01/2022 10:05 PM EST HA1C Interpretive Data: Diagnosis of Diabetes: Diabetic > or = 6.5% Pre-diabetic 5.7 to 6.4% Non-diabetic < or = 5.6% Glycemic Targets for Type I and Type II Diabetics: Non- Adults <7.0% Adults <6.0% Children and Adolescents <7.5% Source: [place] [employer]. Standards of medical care in diabetes,2017. Diabetes Care.2017:40 (suppl 1):S1-S135. HbA1c assay performed by an ion-exchange chromatography method that is certified traceable to the DCCT. Royal Narvaez MD LAB BLOOD ORDERABLES Final Resul t [facility] [address] [place] [address] * [place] Hepatitis C Antibody (01/26/2022 1:38 AM EDT) Hepatitis C Antibody Negative Negative 01/26/2022 3:14 AM EDT [facility] Blood Venous blood specimen / Unknown Venipuncture / Unknown 01/26/2022 1:38 AM EDT 01/26/2022 1:58 AM EDT us Royal Narvaez MD LAB BLOOD ORDERABLES Final Resul t [facility] [address] [place] [address] from Last 3 Months or Most Recently Relevant to Health Maintenance Insurance [facility]ICARE [facility] Advance Directives * Full Code (Latest Code Status on File) Date Activated Date Inactivated Comments 01/26/2022 12:42 AM 01/27/2022 5:22 PM Question Answer Comments Patient has decision-making capacity? Yes Care Teams Grain I Farmworker Relationship Specialty Start Date End Date Onesimo Asencio MD [address] [place] [address] PCP - General 01/25/22 Royal Narvaez MD [address] [place] [address] Consulting Physician Neurology 10/28/22
--- NOTE | 2025-06-07 13:14 | MM_ITS ---
PROCEDURE INFORMATION: Exam: MG Bilateral Screening 3D Mammography Exam date and time: 06/07/2025 1:13 PM Age: 69 years old Clinical indication: Screening examination. A paternal aunt had breast cancer. TECHNIQUE: Imaging protocol: Bilateral Screening tomosynthesis and 2D mammography including computer-aided detection (CAD) when performed. COMPARISON: 1. MG MM DIG SCREENING MAMM BI W/CAD 05/21/2024 10:29 AM 2. MG MM DIG SCREENING MAMM BI W/CAD 04/26/2023 7:47 AM 3. MG MM DIG SCREENING MAMM BI W/CAD 03/08/2022 10:28 AM 4. MG MM DIG SCREENING MAMM BI W/CAD 01/07/2021 8:34 AM FINDINGS: MAMMOGRAPHY: Breast composition: There are scattered areas of fibroglandular density. Mass: None. Architectural distortion: None. Calcifications: No suspicious calcifications. Asymmetric density: No developing asymmetry. Skin thickening: None. Axillary adenopathy: None. Other findings: Loop recorder in the left medial posterior breast, limits evaluation and accentuates the importance of clinical breast exam. IMPRESSION: No mammographic evidence of malignancy. Annual screening is recommended unless otherwise clinically indicated. ASSESSMENT: BI-RADS Category 1: Negative.
--- OUTSIDE RECORDS SUMMARY | 2025-06-07 13:14 | XMS_ITS | Encounter Summary ---
Author Organization Healthcare Address [address] [place] [address] Care Team Providers Care Mix Mill Tender Name Role Phone Onesimo Asencio MD Primary Care Provider [phone] Royal Narvaez MD Unavailable Encounter Details Date [...] drink first t kush in the morning (EYE-SLUBBER RUNNER) to steady your nerves or to get [...] Description 08/05/2025 11:40 AM EST Office Visit [facility] Pixley Akin [address] [place] [address] Maria Ines uBi MD [address] [place] [address] 02/21/2026 8:20 AM EDT Office Visit [facility] [address] [place] [address] Sadaf Saleh, RN GYN [address] [facility] [address] [place] [address] documented as of this encounter Visit Diagnoses Not on filedocumented in this encounter Additional Health Concerns Assessment Noted Time A fall risk assessment has been complete d for the patient 01/28/2025 2:01 PM EDT A Body Mass Index follow-up plan has been documented for the patient 01/28/2025 3:04 PM EDT documented as of this encounter Care Teams Mix Mill Tender Relationship Specialty Start Date End Date Onesimo Asencio MD [address] [place] [address] PCP - General 01/25/22 Royal Narvaez MD [address] [facility] [address] [place] [address] Consulting Physician Neurology 10/28/22 documented as of this encounter
--- OUTSIDE RECORDS SUMMARY | 2025-06-07 13:14 | XMS_ITS | Encounter Summary ---
Author Organization Healthcare Address [address] [place] [address] Care Team Providers Care Stencil Machine Operator Name Role Phone Onesimo Asencio MD Primary Care Provider [phone] Royal Narvaez MD Unavailable Encounter Details Date [...] drink first t kush in the morning (EYE-FOREST PRODUCTS GATHERER) to steady your nerves or to get [...] Description 08/05/2025 11:40 AM EST Office Visit [facility] Wenden Akin [address] [place] [address] Maria Ines Bui MD [address] [place] [address] 02/21/2026 8:20 AM EDT Office Visit [facility] [address] [place] [address] Sadaf Saleh, INFORMATION SECURITY SPECIALIST [address] [facility] [address] [place] [address] documented as of this encounter Visit Diagnoses Not on filedocumented in this encounter Additional Health Concerns Assessment Noted Time A fall risk assessment has been complete d for the patient 01/28/2025 2:01 PM EDT A Body Mass Index follow-up plan has been documented for the patient 01/28/2025 3:04 PM EDT documented as of this encounter Care Teams Stencil Machine Operator Relationship Specialty Start Date End Date Onesimo Asencio MD [address] [place] [address] PCP - General 01/25/22 Royal Narvaez MD [address] [facility] [address] [place] [address] Consulting Physician Neurology 10/28/22 documented as of this encounter
== END 2025-06-07 23:59 | disposition home or self-care (01) ==
LOC: RAD 13:11
PROVIDERS: PCP Family Medicine; Visit Provider Family Medicine
DX: Z12.31 Encounter for screening mammogram for malignant neoplasm of breast (principal); R92.323 Mammographic fibroglandular density, bilateral breasts; Z95.818 Presence of other cardiac implants and grafts
CPT/HCPCS: 77063; 77067

== ENCOUNTER 2025-06-26 12:35 | Outpatient (CLI) | payer MEDICARE, OTHER, SELFPAY ==
--- OUTSIDE RECORDS SUMMARY | 2024-10-01 07:00 | XMS_ITS ---
Author Organization [facility] Address [address] [facility] [address] [place] [id number] Care Team Providers Care Bailing Machine Operator Name Role Phone Jinny Santos Primary Care Provider [phone] Jinny SANTOS Unavailable Unavailable Allergies Allergen (clinical drug ingredient) Drug/Non Drug Allergy documented on EMR Reaction Allergy Type Onset Date Status Alteplase Unknown Drug Allergy Active cefdinir Cefdinir rash Drug Allergy Active Results Component Value Reference Range Notes CBC Venipuncture (in house) Reviewed date:10/01/2024 12:35:01 PM Interpretation: Performing Lab: Notes/Report: wbc 7.9 3.5 - 10 lymph 21.7 15 - 50 mid 5.2 2 - 15 gran 73.1` 35 - 80 rbc 3.83 3.5 - 5.5 hgb 11.8 11.5 - 16.5 hct 35.1 35 - 55 mcv 91.5 75 - 100 mch 30.8 25 - 35 mchc 33.7 31 - 38 platlet 264 100 - 400 Glycohemoglobin A1c (in hous e) Reviewed date:10/01/2024 12:35:15 PM Interpretation:5.3% Performing Lab: Notes/Report: 5.3% glycohemoglobin 5.3% 5 - 6.5 % P-Comprehensive Metabolic Pa serena (CMP) Reviewed date:10/02/2024 09:56:02 AM Interpretation:gluc 250, Cr 1.28, gfr 45 Performing Lab: Notes/Report: CLIA: [id number] Zan Al MD, Route Agent [facility] , [place] [address] Test performed by [employer] Sodium 141 135-145 mmol/L Potassium 4.6 3.5-5.3 mmol/L Chloride 103 97-108 mmol/L CO2 25 22-32 mmol/L Glucose 250 65-99 mg/dL BUN 18 8-23 mg/dL Creatinine 1.28 0.50-1.00 mg/dL Calcium 10.0 8.6-10.4 mg/dL eGFR by Creatinine 45 >59 mL/min/1.73m2 Protein 6.7 6.0-8.3 g/dL Albumin 4.2 3.5-5.3 g/dL Alkaline Phosphatase 90 35-121 IU/L ALT (SGPT) 13 <5-47 IU/L AST (SGOT) 15 <5-40 IU/L Bilirubin, Total 0.2 <0.2-1.2 mg/dL A/G Ratio 1.7 1.1-2.5 P-Microalbumin/Creatinine, R andom Urine Sample Reviewed date:10/02/2024 09:56:02 AM Interpretation:Normal Performing Lab: Notes/Report: Test performed by [employer] [facility] , [address], [place] [address] Zan Al MD, Route Agent CLIA: [id number] Albumin/Creatinine Ratio, Urine 12 0-30 ug/m g Microalbumin, Urine, Random 0.8 Creatinine, Urine 69.1 REASON FOR VISIT 3 week check Medications Medication SIG (Take, Route, Frequency, Duration) Notes Start Date End Date Status Entresto 24-26 MG 1 tablet Orally Twic e a day; Duration: 30 day(s) Not-Taking Levothyroxine Sodium 50 MCG TAKE 1 TABLET BY MOUTH EVERY DAY; Duration: 90 days Active Famotidine 40 MG 1 tablet Orally Once a day; Duration: 30 day(s) 05/23/2024 Active glipiZIDE 10 MG 1 tab(s) orally once a day; Duration: 90 days Active Fish Oil 1000MG 1 TAB(S) P.O. ONCE A DAY Not-Taking Lipitor 80 MG 1 tab(s) orally once a day (at bedtime); Duration: 90 days Active Vitamin B-12 1000 MCG 1 tab(s) orally on 08/25/2011 Active Aspirin 81 81 MG 1 TAB(S) ONCE A DAY; Duration: 30 DAYS Active Lysine 1 TABLET 1 TAB(S) ONCE A DAY Active Metoprolol Succinate ER 25 MG 1/2 Orally qd Active Farxiga 10 MG 1 tablet Orally Once a day; Duration: 30 day(s) Active Align 4 MG as directed Orally Active Metamucil Premium Blend 52.63 % as directed Orally once a day Active Mucinex DM 30-600 MG 1 tablet as needed Orally every 12 hrs Active Plavix 75 MG 1 tablet Orally Once a day; Duration: 30 day(s) Active metFORMIN HCl 1000 MG take 1 tablet once daily; Duration: 90 days Active Vital Signs Blood pressure systolic 100 mm Hg 10/01/19 25 Blood pressure diastolic 68 mm Hg 025 Heart Rate 81 /min 10/01/2024 Height 65 in 10/01/2024 Weight 190.6 lbs 10/01/2024 BMI 31.71 kg/m2 10/01/2024 Encounters Encounter Location Date Provider Diagnosis [facility] [address] [facility] [address] [place] [id number] 10/01/2024 Jinny Santos Ischemic cardiomyopa thy I25.5 ; History of ST elevation myocardial infarction (STEMI) I25.2 ; History of CVA (cerebrovascular accident) Z86.73 ; Heart murmur R01.1 and Type 2 diabetes mellitus E11.9 Assessments Encounter Date Diagnosis (ICD Code) Assessment Notes Treatment Notes Treatment Clinical Notes Section Notes 10/01/2024 Ischemic cardiomyopathy (ICD-10 - I25.5) 10/01/[address] elevation myocardial infarction (STEMI) (ICD-10 - I25.2) 10/01/2024 History of CVA (cerebrovascular accident) (ICD-10 - Z86.73) 10/01/2024 Heart murmur (ICD-10 - R01.1) 10/01/2024 Type 2 diabetes mellitus (ICD-10 - E11.9) Plan Of Treatment Medication Medication Name Sig Start Date Stop Date Notes metFORMIN HCl 1000 MG take 1 tablet once daily; Duration: 90 days Next Appt Details Follow Up: 2 Months, Reason: Provider Name:Jinny Lacy er, 11/25/2025 10:00:00 AM, [address] [facility], [address], [place], [id number], Progress Notes * SHAYNA KELLER:1955 ( 69 yo F)Acc No.[id number]:10/01/2024 Progress Notes Patient: JACKIE FITZGERALD Provider: Jinny Santos M.D. :1955 A ge:69 Y S ex:Female Date:10/01/2024 Address:[address] Subjective: * Chief Complaints: * 1 . 3 week check. * HPI: C ardiology: The pt is here for a 3 wek follow up on heart attack and Hospitalization. Pt states she is having occasional chest pain but much better. Pt is not fasting. 69 year old female presents with c/o Chest Pain. c/o Short of Breath. Denies : Dizziness. D enies : Palpitations. * ROS: D ERMATOLOGY: no R richie. n o H joaquin. G ASTROENTEROLOGY: no N ausea. n o V omiting. n o D iarrhea.? U ROLOGY: no D ifficulty urinating. n o B lood in urine. * Medical History: F ibrocystic Breast Disease, Hypercholestrolemia, Type 2 Diabetes, Hypothyroidism, COVID 19, 09/2021, CTA Brain/ Neck- [facility], 01/25/2022, COVID 19 06/07/2022, 03/03/22 Echocardiogram, COVID 19 Booster 10/06/22, COVID 19 Booster 2022, Flu shot 2022, Neg Cologuard 01/31/2024. * Surgical History: B ilateral irridectomy, [facility] December 112023. * [facility]Major Diagno [facility]ic [facility] [place] [facility] [place] * Family History: F ather: alive. M other: alive. P aternal Grand Father: . P aternal Grand Mother: . M aternal Grand Father: . M aternal Grand Mother: , cancer, uterine. P aternal aunt: cancer, breast. S iblings: 1 brother . 2 brother(s) , 1 sister(s) . 1 daughter(s) . . * Social History: C URRENT TOBACCO USE S moking Status: Patient does NOT smoke, Former Smoker: Yes. C affeine: yes, frequency:. Marital Status: Single. Past smoking status: no, Smoking status: Does not smoke. Alcohol: socially, Type: , Frequency: ,Years: , Determination:. * Medications: T aking Mucinex DM 30-600 MG Tablet Extended Release 12 Hour 1 tablet as needed Orally every 12 hrs , Taking Metamucil Premium Blend 52.63 % Powder as directed Orally once a day , Taking Align 4 MG Capsule as directed Orally , Taking Farxiga 10 MG Tablet 1 tablet Orally Once a day , Taking Plavix 75 MG Tablet 1 tablet Orally Once a day , Taking Metoprolol Succinate ER 25 MG Tablet Extended Release 24 Hour 1/2 Orally qd , Taking Lysine 1 TABLET 1 TAB(S) ONCE A DAY , Taking Aspirin 81 81 MG 1 TAB(S) ONCE A DAY , Taking Vitamin B-12 1000 MCG Tablet 1 tab(s) orally once a day , Taking Lipitor 80 MG Tablet 1 tab(s) orally once a day (at bedtime) , Taking glipiZIDE 10 MG Tablet 1 tab(s) orally once a day , Taking Famotidine 40 MG Tablet 1 tablet Orally Once a day , Taking Levothyroxine Sodium 50 MCG Tablet TAKE 1 TABLET BY MOUTH EVERY DAY , Taking metFORMIN HCl 1000 MG Tablet TAKE 1 TABLET BY MOUTH TWICE DAILY , Not- Taking Entresto 24-26 MG Tablet 1 tablet Orally Twice a day , Not-Taking Fish Oil 1000MG 1 TAB(S) P.O. ONCE A DAY , Discontinued NexIUM 40 MG Capsule Delayed Release 1 cap(s) orally once a day , Medication List reviewed and reconciled with the patient * Allergies: C efdinir: rash, Alteplase. Objective: * Vitals: W t:190.6, Temp:98.2, BP:100/68, HR:81, O2 Sat:98% on RA, Nurse:PHILL, Ht: 65, BMI:31.71. * Examination: G eneral Examination: General Appearance: N AD. H EENT: u nremarkable.?Oral cavity: n o lesions, mucosa moist and WNL, no erythema. N joe: s upple, no lymphadenopathy. C hest: n ormal shape and expansion. H eart: R SR, aortic murmur, no ectopics. L ungs: c lear to auscultation. A bdomen: soft and nontender, no organomegaly or masses. N eurologic Exam: I ntact, gait normal. S kin: n ormal, no rash. P eripheral pulses: n ormal. B ack: normal, mild dorsal kyphosis. E xtremities: no leg edema. Assessment: * Assessment: 1. I schemic cardiomyopathy - I25.5 (Primary) 2 . H istory of ST elevation myocardial infarction (STEMI) - I25.2 3 . H istory of CVA (cerebrovascular accident) - Z86.73 4 . H eart murmur - R01.1 5 . T ype 2 diabetes mellitus - E11.9 Plan: * Treatment: Value Reference Range w bc 7.9 3.5 - 10 * l ymph 21.7 15 - 50 * m id 5.2 2 - 15 * g ran 73.1` 35 - 80 * r bc 3.83 3.5 - 5.5 * h gb 11.8 11.5 - 16.5 * h ct 35.1 35 - 55 * m cv 91.5 75 - 100 * m ch 30.8 25 - 35 * m chc 33.7 31 - 38 * p latlet 264 100 - 400 * Jerrica Martin 10/01/2024 12:09 :44 PM > , Provider reviewed results while patient in office. 2.?Type 2 diabetes mellitus? Decrease metFORMIN HCl Tablet, 1000 MG, take 1 tablet, once daily, 90 days, Refills 1.?LAB: P-Comprehensive Metabolic Panel (CMP) (Collection Date & Time - 10/01/2024 11:40 AM)?gluc 250, Cr 1.28, gfr 45* Value Reference Range A /G Ratio 1.7 1.1-2.5 - * A lbumin 4.2 3.5-5.3 - g/dL * A lkaline Phosphatase 90 35-121 - IU/L * A LT (SGPT) 13 <5-47 - IU/L * A ST (SGOT) 15 <5-40 - IU/L * B ilirubin, Total 0.2 <0.2-1.2 - mg/dL * B UN 18 8-23 - mg/dL * C alcium 10.0 8.6-10.4 - mg/dL * C hloride 103 97-108 - mmol/L * C O2 25 22-32 - mmol/L * C reatinine 1.28 H 0.50-1.00 - mg/dL * G lucose 250 H 65-99 - mg/dL * P otassium 4.6 3.5-5.3 - mmol/L * S odium 141 135-145 - mmol/L * P rotein 6.7 6.0-8.3 - g/dL * e GFR by Creatinine 45 L >59 - mL/min/1.73m2 * Jessica Blandon 10/02/2024 9:55: 56 AM >See phone encounter ?LAB: P-Microalbumin/Creatinine, Random Urine Sample (Collection Date & Time - 10/01/2024 11:40 AM)?Normal* Value Reference Range A lbumin/Creatinine Ratio, Urine 12 0-30 - ug /mg * C reatinine, Urine 69.1 - mg/dL * M icroalbumin, Urine, Random 0.8 - mg/dL * Jessica Blandon 10/02/2024 9:55: 56 AM >See phone encounter ?LAB: Glycohemoglobin A1c (in house) (Collection Date & Time - 10/01/2024)? 5.3%* Value Reference Range g lycohemoglobin 5.3% 5 - 6.5 % * Jerrica Martin 10/01/2024 12:11 :00 PM > , Provider reviewed results while patient in office. * Procedure Codes: 9 4760 [place], [address] CBC WITH AUTO DIFF, 58[address] GLYCATED HEMOGLOBIN TEST, Modifiers: QW , G2211 Complex e/m visit add on * Follow Up: 2 Months * Images: Billing Information: * Visit Code: 25831 Office Visit, Est Pt., Level 4. * Procedure Codes: [address] [place] [address] CBC WITH AUTO DIFF. 87590 GLYCATED HEMOGLOBIN TEST. Modifiers: QW G2211 Complex e/m visit add on. * Electronic signature of Jinny Santos MD on 06/26/2025 at 12:38 PM EDT Sign off status: Pending * Provider: Jinny Santos M.D. Date: 0 10/01/2024 Generated for Asad francisco/Dario/Nohemy on: 12:38 PM EDT History and Physical Notes * HPI (History of Present Illness) Category Sub-Category Detail Notes Category Not es Cardiology Short of Breath Chest Pain Palpitations Dizziness Examination Category Sub-Category Detail Notes Category Not es General Examination HEENT: unremarkable Heart: RSR, aortic murmur, no ectopics Lungs: clear to auscultatio n Abdomen: soft and nontender, no organomegaly or masses Extremities: no leg edema General Appearance: NAD Skin: normal, no rash Neurologic Exam: Intact, gait normal Neck: supple, no lymphaden opathy Oral cavity: no lesions, mucosa m oist and WNL, no erythema Peripheral pulses: normal Back: normal, mild dorsal kyphosis Chest: normal shape and exp ansion
--- OUTSIDE RECORDS SUMMARY | 2024-11-05 06:00 | XMS_ITS ---
Author Organization [facility] Address [address] [facility] [address] [facility] [address] [place] [phone] Care Team Providers Care Food Safety Director Name Role Phone Jinny Santos Primary Care Provider Jinny SANTOS Unavailable Unavailable REASON FOR VISIT 6 month check Encounters Encounter Location Date Provider Diagnosis [facility] [address] [place] [phone] 11/05/2024 Jinny Santos Plan Of Treatment Next Appt Details Provider Name:Jinny Lacy er, 11/25/2025 10:00:00 AM, [address], [address], [place], [phone], Progress Notes * LIBERTAD KELLEROB:1955 ( 69 yo F)Acc No.[id number]:11/05/2024 Progress Notes Patient: JACKIE FITZGERALD Provider: Jinny Santos M.D. :1955 A ge:69 Y S ex:Female Date:11/05/2024 Address:[place] [address], [address] [place] [address] Subjective: * Chief Complaints: * 1 . 6 month check. * Medical History: Objective: * Vitals: Assessment: Plan: * Treatment: * Images: Billing Information: * Visit Code: * Procedure Codes: * Electronic signature of Jinny Santos MD on 06/26/2025 at 12:39 PM EDT Sign off status: Pending * Provider: Jinny Santos M.D. Date: 0 11/05/2024 Generated for Asad francisco/Dario/Pepeitting on: 1 12:39 PM EDT
--- OUTSIDE RECORDS SUMMARY | 2025-01-21 07:00 | XMS_ITS ---
Author Organization [facility] Address [address] [place] [id number] Care Team Providers Care Supervisor Ride Assembly Name Role Phone Jinny Santos Primary Care [...] 50 Performing Lab: Notes/Report: Test performed by [employer], [email or web address] [facility] , [address], [place] [address] Zan Al MD, Settlement Technician CLIA: [id number] Sodium 139 135-145 mmol/L Potassium 4.7 3.5-5.3 [...] Peripheral circulatory disorder associated with diabetes mellitus (166728060) Type 2 diabetes mellitus with other circulatory complications (E11.59) Active confirmed Problem Body mass index 30.00 to 34.99 (39045623237255 7) BMI 31.0-31.9,adult (Z68.31) Active confirmed Vital Signs Blood pressure systolic 110 mm Hg 01/22/20 25 Blood pressure diastolic 70 mm Hg 025 Heart Rate 66 /min 01/21/2025 Height 65 in 01/21/2025 Weight 187.6 lbs 01/21/2025 BMI 31.21 kg/m2 01/21/2025 Encounters Encounter Location Date Provider Diagnosis [place] 1210 [facility] 36 [facility] [address] [place], [place] [id number] 01/21/2025 Jinny Santos Type 2 diabetes osbaldo [...] Name:Jinny Lacy , 11/25/2025 10:00:00 AM, [address], [address], [facility] [place], [id number], Progress Notes * LIBERTAD KELLEROB:1955 ( 69 yo F)Acc No.[id number]:01/21/2025 Progress Notes Patient: JACKIE FITZGERALD Provider: Jinny Santos M.D. :1955 A ge:69 Y S ex:Female Date:01/21/2025 Address:[address], [id number] Subjective: * Chief Complaints: [...] Hypothyroidism, COVID 19, 09/2021, CTA Brain/ [facility]ck- [facility], 01/25/2022, COVID 19 06/07/2022, 03/03/22 Echocardiogram, COVID 19 Booster 10/06/22, COVID 19 Booster 2022, Flu shot 2022, Neg Cologuard 01/31/2024. * Surgical History: B ilateral irridectomy, [facility] December 112023. * Hospitalization/Major Diagno stic Procedure: [facility] , [facility] [place] [facility] 12/02/2018. * Family History: F ather: [...] circulatory complications - E11.59 9 . B [place] 31.0-31.9,adult - Z68.31 Plan: * Treatment: Value [...] G 2211 Complex e/[place], [address] GLYCATED HEMOGLOBIN TEST, Modifiers: QW , 3044F HG A1C LEVEL LT 7.0%, G8752 MOST RECENT SYSTOLIC BP < 140MM HG, G8754 MOST RECENT DIASTOLIC BP < 90MM HG * Follow Up: 4 Months * Images: Billing Information: * Visit Code: 02090 Office Visit, Est Pt., Level 4. * Procedure Codes: G2211 Complex e/[place]. [address] GLYCATED HEMOGLOBIN TEST. Modifiers: QW 3044F HG A1C LEVEL LT 7.0%. G8752 MOST RECENT SYSTOLIC BP < 140MM HG. G8754 MOST RECENT DIASTOLIC BP < 90MM HG. * Electronic signature of Jinny Santos MD on 06/26/2025 at 12:40 PM EDT Sign off status: Pending * Provider: Jinny Santos M.D. Date: 0 01/21/2025 Generated for Marlenei ng/Faprashantg/eTransmitting on: 1 12:40 PM EDT History and Physical Notes * [...]
--- OUTSIDE RECORDS SUMMARY | 2025-04-26 14:45 | XMS_ITS | Encounter Summary ---
Author Organization Healthcare Address [address] [place] [address] Care Team Providers Care First Aid Instructor Name Role Phone Onesimo Asencio MD Primary Care Provider [phone] Royal Narvaez MD Unavailable Encounter Details Date Type Department Care Team (Latest Contact Info) Description 04/26/2025 2:45 PM EDT - 04/26/2025 11:59 PM EDT Hospital Encounter Cardiac Imaging [address] [place] [address] Encounter for loop recorder check Discharge Disposition: [...] drink first t kush in the morning (EYE-EQUIPMENT SUPERINTENDENT) to steady your nerves or to get [...] Description 08/05/2025 11:40 AM EST Office Visit [facility] [place] [address] [place] [address] Maria Ines Bui MD [address] [place] [address] 02/21/2026 8:20 AM EDT Office Visit [facility] [address] [place] [address] [place] [address] Sadaf Saleh APRN [address] [facility] [address] [place] [address] documented as of this encounter [...] documented as of this encounter Care Teams First Aid Instructor Relationship Specialty Start Date End Date Onesimo Asencio MD [address] [place] [address] PCP - General 01/25/22 Royal Narvaez MD [address] [place] [address] Consulting Physician Neurology 10/28/22 documented as of this encounter
--- OUTSIDE RECORDS SUMMARY | 2025-05-14 16:00 | XMS_ITS | Encounter Summary ---
Author Organization Healthcare Address [address] [place] [address] Care Team Providers Care Tire Tester Name Role Phone Onesimo Asencio MD Primary Care Provider [phone] Royal Narvaez MD Unavailable Encounter Details Date Type Department Care Team (Latest Contact Info) Description 05/14/2025 4:00 PM EDT - 05/14/2025 11:59 PM EDT Hospital Encounter Cardiac Imaging [address] [place] [address] Encounter for loop recorder check Discharge Disposition: [...] drink first t kush in the morning (EYE-WELLFIELD TECHNICIAN) to steady your nerves or to get [...] Description 08/05/2025 11:40 AM EST Office Visit [facility] [place] [facility] [address] [place] [address] Maria Ines Bui MD [address] [place] [address] 02/21/2026 8:20 AM EDT Office Visit [facility] [address] [place] [address] Sadaf Saleh APRN [address] [facility] [address] [place] [address] documented as of this encounter Procedures Procedure Name Priority Date/Time Associated Diagnosis Comments CARDIAC DEVICE CHECK CHECK - REMOTE ALERT Routine 05/14/2025 4:20 PM EDT Encounter for loop recorder check documented in this encounter Results * CARDIAC DEVICE CHECK - REMOTE ALERT - LOOP RECORDER (ILR) (05/14/2025 4:20 PM EDT) Anatomical Region Laterality Modality Other Narrative 05/15/2025 9:18 AM EDT [facility] EP - Remote CIED alert (non-scheduled) Name: Nathen Marshall Date: 05/15/2025 : 1955 Age: 69 y.o. Indication for alert: Tachy event Device: Ic Design Engineer: Medtronic implantable quality control technician (ICM) Summary: Tachy on 05/07 for 5 seconds, QRS complexes appear wider with change in morphology. See attached report for CIED details Will continue to monitor for further NSVT. us Lily Mcneal APRN CV IMPLANTABLE CARDIAC DEV ICE PROCEDURES Final [...] documented as of this encounter Care Teams Tire Tester Relationship Specialty Start Date End Date Onesimo Asencio MD [address] [place] [address] PCP - General 01/25/22 Royal Narvaez MD [address] [facility] [address] [place] [address] Consulting Physician Neurology 10/28/22 documented as of this encounter
--- OUTSIDE RECORDS SUMMARY | 2025-05-24 08:20 | XMS_ITS | Encounter Summary ---
Author Organization [facility] Address [address] [place] [address] Care Team Providers Care Sales Office Administrator Name Role Phone Onesimo Asencio MD Primary Care Provider [phone] Royal Narvaez MD Unavailable Reason for Referral * Consultation (Routine) - Authorized Specialty Diagnoses / Procedures Referred By Contava t Referred To Contact Diagnoses Stage 3a chronic kidney disease (CMS/HCC) Sadaf Saleh APRN [address] [address] Phone: tel: fax: Referral ID Status Reason Start Date Expiration Date V isits Requested Visits Authorized [id number] Authorized 05/24/2025 11/23/2026 1 1 Reason for Visit * Reason Comments Follow-up Encounter Details Date Type Department Care Team (Late st Contact Info) Description 05/24/2025 8:20 AM EDT [facility] Visit [facility] [address] [place] [id number] Sadaf Saleh APRN [address] [address] Stage 3a chronic kidney disease (CMS/HCC) (Primary Dx); Coronary artery disease involving grand [place]onde tribes coronary artery of grand [place] tribes heart, unspecified whether angina present; Primary hypertension; Diabetes mellitus due to underlying condition with diabetic chronic kidney disease, unspecified CKD stage, unspecified whether fdc insulin use (CMS/HCC); Chronic kidney disease-mineral and bone disorder Social History Tobacco Use Types Packs/Day Years [...] drink first t kush in the morning (EYE-TEACHER BALLET) to steady your nerves or to get rid of a hangover? 0 08/02/2022 CAGE Questionnaire Score 0 022 Comments No Sex and Gender Information Value Date Recorded Sex Assigned at Not on file Legal Sex Female 11:03 PM EDT Gender Identity Not on file Sexual Orientation Not on file documented as of this encounter Miscellaneous Notes * Progress Notes - Sadaf Saleh, KARIN - 05/24/2025 8:20 AM EDT Nephrology Clinic Follow up Note Nathen Marshall is a 69 y.o. female with PMH of DM, HTN, CVA, and CAD Patient notes longtime history of DM/HTN. Unsure of most recent A1c. HTN undercontrol. Notes intermittent NSAID use, none recently. No known family history of renal disease. Creatinine baseline ~1.1, elevated to 1.5-1.[address] 08/2024 Patient denies any known previus AKIs. 08/2024 CT, s/p 2 stents. Since her lat visit she notes she has been continuing her cardio at home. She has been working on her ex bike three times per week and doing water arobics twice a week, She is feeling better overall.She notes her weight is stable. She denies any edema. Denies hematuria, dysuria, abd pain, SOA, CP. Past Medical History[1] Current Outpatient Medications Medication Instructions acetaminophen (TYLENOL) 1,000 mg, Every 6 hours PRN apixaban (ELIQUIS) 5 mg, Oral, 2 times daily atorvastatin (LIPITOR) 80 mg, Oral, Daily clopidogrel (PLAVIX) 75 mg, Daily cyanocobalamin (VITAMIN B-12) 1,000 mcg, Every morning dextromethorphan-guaiFENesin (Mucinex DM) 30-600 MG 12 hr tablet Every 12 hours diphenhydrAMINE (SOMINEX) 25 mg, Nightly famotidine (PEPCID) 20 mg, Daily glipiZIDE (Glucotrol) 10 MG tablet 1 tablet, Every morning levothyroxine (SYNTHROID, LEVOXYL) 50 mcg, Every morning Lysine 1,000 mg, Every morning metFORMIN (GLUCOPHAGE) 1,000 mg, ZZ 2 times daily RT metoprolol succinate XL (TOPROL-XL) 25 mg, Nightly Probiotic Product (align) 4 MG capsule Take by mouth. Psyllium (Metamucil Premium Blend) 52.63 % powder Every 24 hours valsartan (DIOVAN) 40 mg, Daily Physical Exam Encounter done via audio only: Speaking in full sentences, no apparent distress, answers questions appropriately Labs: I have independently reviewed and interpreted the test results and discussed with patient. Labs scanned in to media tab of [facility] from an outside facility. Labs completed on 05/20/25 Imaging: Renal ultrasound 05/21/24 normal on review ASSESSMENT/PLAN CKD3b Likely r/t DM/HTN Creatinine ~1.1-1.4, now 1.1 egfr 49 UA- glucose HTN- controlled DM- controlled per patient CAD- recent CT s/p 2 stents (08/17/24) CKD BMD- PTH, ca vit d stable Anemia of Chronic disease-goal hgb >11 Had lengthy discussion with patient regarding CKD and CKD progression. Encourged glucose and BP control. Discussed initiation of SGL2. Patient noted she will discuss with PCP and daycare assistant. If started, it may slightly increase in Creatinine with initiation. No current edema, agree to hold lasix for now. BP stable unknown recent A1c, previously <7. Followup 9 months. RTC in 9mo with ordered tests below to be done before next visit Sadaf Saleh, KARIN Telehealth Statement Patient Verification Patient identity has been confirmed using name and date of ? Yes Authorizations and Agreements/Telemedicine Consent sent and consent confirmed? Yes Patient Location: Home/Other Patient confirms they are physically located in [place]? Yes If the patient is not physically located in [place], the provider has confirmed with [facility] that[facility] provider is authorized to provide services in patient's stated location? N/A Provider Location: [facility] facility Audio and video or audio only? Audio only Total visit time: 26 minutes [1] Past Medical History: Diagnosis Date Anxiety Diabetes ([facility]) High blood pressure Migraines Overweight Stroke (cerebrum) ([facility]) documented in this encounter Plan of Treatment Upcoming Encounters Date Type Department Care Team (Late st Contact Info) Description 08/05/2025 11:40 AM EST Office Visit [facility] [place] [address] [facility] [place] [address] Maria Ines Bui MD [address] [place] [address] 02/21/2026 8:20 AM EDT Office Visit [facility] [address] [place] [address] Sadaf Saleh APRN [address] [address] Scheduled Orders Name Type Priority Associated Diagnoses Orde r Schedule CBC W/O Differential Lab Routine Stage 3a chronic kidney disease ([facility]) Expected: 05/24/2025 (Approximate), Expires: 11/21/2026 Protein, Random, Urine with Creatinine Lab Routine Stage 3a chronic kidney disease ([facility]) Expected: 05/24/2025 (Approximate), Expires: 11/21/2026 PTH Intact Total Lab Routine Stage 3a chronic kidney disease ([facility]) Expected: 05/24/2025 (Approximate), Expires: 11/21/2026 Renal Function Panel, Plasma Lab Routine Stage 3a chronic kidney disease ([facility]) Expected: 05/24/2025 (Approximate), Expires: 11/21/2026 Urinalysis with reflex microscopic (Culture NOT Included) Lab Routine Stage 3a chronic kidney disease (CMS/HCC) Expected: 05/24/2025 (Approximate), Expires: 11/21/2026 Vitamin D 25 Hydroxy Lab Routine Stage 3a chronic kidney disease (CMS/HCC) Expected: 05/24/2025 (Approximate), Expires: 11/21/2026 Scheduled Referrals Name Type Priority Associated Diagnoses Order Schedule Follow Up Nephrology Outpatient Referral Routine Stage 3a chronic kidney disease (CMS/HCC) Expected: 02/21/2026 (Approximate), Expires: 06/23/2026 documented as of this encounter Visit Diagnoses Diagnosis Stage 3a chronic kidney disease (CMS/HCC)- Primary Coronary artery disease involving grand [place] tribes coronary artery of grand ronde tribes heart, unspecified whether angina present Primary hypertension Unspecified essential hypertension Diabetes mellitus due to underlying condition with diabetic chronic kidney disease, unspecified CKD stage, unspecified whether social work lecturer insulin use Chronic kidney disease-mineral and bone disorder documented in this encounter Additional Health Concerns Assessment Noted Time A fall risk assessment has been complete d for the patient 01/28/2025 2:01 PM EDT A Body Mass Index follow-up plan has been documented for the patient 05/24/2025 10:04 AM EDT documented as of this encounter Care Teams Sales Office Administrator Relationship Specialty Start Date End Date Onesimo Asencio MD [address] [place] [address] PCP - General 01/25/22 Royal Narvaez MD [address] [place] [address] Consulting Physician Neurology 10/28/22 documented as of this encounter
--- OUTSIDE RECORDS SUMMARY | 2025-05-27 06:15 | XMS_ITS ---
Author Organization [facility] Address [address] [place] [id number] Care Team Providers Care Process Coordinator Name Role Phone Jinny Santos Primary Care Provider Jinny SANTOS Unavailable Unavailable Allergies Allergen (clinical drug ingredient) Drug/Non Drug Allergy documented on EMR Reaction Allergy Type Onset Date Status Alteplase Unknown Drug Allergy Active cefdinir Cefdinir rash Drug Allergy Active Results Component Value Reference Range Notes Glycohemoglobin A1c (in hous e) Reviewed date:05/29/2025 10:06:16 AM Interpretation:6.0% Performing Lab: Notes/Report: 6.0% glycohemoglobin 6.0% 5 - 6.5 % REASON FOR VISIT 4 month ckup Medications Medication SIG (Take, Route, Frequency, Duration) Notes Start Date End Date Status Levothyroxine Sodium 50 MCG TAKE 1 TABLET BY MOUTH EVERY DAY; Duration: 90 Active Entresto 24-26 MG 1 tablet Orally Twic e a day; Duration: 30 day(s) Not-Taking metFORMIN HCl 1000 MG TAKE 1 TABLET BY M OUTH DAILY; Duration: 30 days Active Fish Oil 1000MG 1 TAB(S) P.O. ONCE A DAY Not-Taking Metoprolol Succinate ER 25 MG 1/2 Orally daily Active Farxiga 10 MG 1 tablet Orally Once a day; Duration: 30 day(s) Not-Taking Aspirin 81 81 MG 1 TAB(S) ONCE A DAY; Duration: 30 DAYS Not-Taking Famotidine 40 MG 1 tablet Orally Once a day; Duration: 30 day(s) 05/23/2024 Active Lipitor 80 MG 1 tab(s) orally once a day (at bedtime); Duration: 90 days Active glipiZIDE 10 MG 1 tab(s) orally once a day; Duration: 90 days Active Align 4 MG as directed Orally Active Plavix 75 MG 1 tablet Orally Once a day; Duration: 30 day(s) Not-Taking Lysine 1 TABLET 1 TAB(S) ONCE A DAY Active Vitamin B-12 1000 MCG 1 tab(s) orally on 08/25/2011 Active Metamucil Premium Blend 52.63 % as directed Orally once a day Active Valsartan 40 MG 1 tablet Orally Twic a day; Duration: 30 day(s) Active Eliquis 5 MG as directed Orally twice a day Active Mucinex DM 30-600 MG 1 tablet as needed Orally every 12 hrs Not-Taking Vital Signs Blood pressure systolic 118 mm Hg 05/27/20 25 Blood pressure diastolic 70 mm Hg 025 Heart Rate 74 /min 05/27/2025 Height 65 in 05/27/2025 Weight 190.4 lbs 05/27/2025 BMI 31.68 kg/m2 05/27/2025 Encounters Encounter Location Date Provider Diagnosis [facility] [address] [facility] [address] [id number] 05/27/2025 Jinny Santos Type 2 diabetes osbaldo itus with other circulatory complications E11.59 ; History of ST elevation myocardial infarction (STEMI) I25.2 ; Ischemic cardiomyopathy I25.5 ; Hypothyroidism E03.9 and Essential hypertension I10 Assessments Encounter Date Diagnosis (ICD Code) Assessment Notes Treatment Notes Treatment Clinical Notes Section Notes 05/27/2025 Type 2 diabetes mellitus with other circulatory complications (ICD-10 - E11.59) 05/27/[address] elevation myocardial infarction (STEMI) (ICD-10 - I25.2) 05/27/2025 Ischemic cardiomyopathy (ICD-10 - I25.5) 05/27/2025 Hypothyroidism (ICD-10 - E03.9) 05/27/2025 Essential hypertension (ICD-10 - I10) Plan Of Treatment Medication Medication Name Sig Start Date Stop Date Notes Levothyroxine Sodium 50 MCG TAKE 1 TABLE T BY MOUTH EVERY DAY; Duration: 90 metFORMIN HCl 1000 MG TAKE 1 TABLET BY M OUTH DAILY; Duration: 30 days Metoprolol Succinate ER 25 MG 1/2 Orally daily Next Appt Details Follow Up: 6 Months, Reason: Provider Name:Jinny Lacy er, 11/25/2025 10:00:00 AM, [address], [address], [place], [place], [id number], Progress Notes * LIBERTAD KELLEROB:1955 ( 69 yo F)Acc No.[id number]:05/27/2025 Progress Notes Patient: JACKIE FITZGERALD Provider: Jinny Santos M.D. :1955 A ge:69 Y S ex:Female Date:05/27/2025 [facility], [id number] Subjective: * Chief Complaints: * 1 . 4 month ckup. * HPI: H PI: 69 year old female presents with c/o Patient is here today for?Pt is here today for a 4 month check up. Pt sts she has been concerned since finding out she has chronic kidney disease, but sts she has not had any symptoms of this. Pt sts she had labs done last week downstairs at [facility] lab. Pt sts she does need refills on her medications today as well. U rology: Lab obtained 05/20 per nephrology showed: BUN=23, Creat=1.10, GFR=49, Vld=635 PTH=97.5, Ca=9.8 K=5.1, Nd=604. C ardiology: Cardiology follow-up June 17. LAST ECHO 11/19/24 WITH EF=40-45%. * Medical History: F ibrocystic Breast Disease, Hypercholestrolemia, Type 2 Diabetes, Hypothyroidism, COVID 19, 09/2021, CTA Brain/ Neck- [facility], 01/25/2022, COVID 19 06/07/2022, 03/03/22 Echocardiogram, COVID 19 Booster 10/06/22, COVID 19 Booster 2022, Flu shot 2022, Neg Cologuard 01/31/2024, ECHO with EF=40-45%, 11/19/24. * Surgical History: B ilateral irridectomy, [facility] 1,2, 2024. * Hospitalization/Major Diagno stic Procedure[facility] , [facility] 12/02/2018. * Family History: F ather: alive. [...] directed Orally twice a day , Taking Metamucil Premium Blend 52.63 % Powder as directed Orally once a day , Taking Align 4 MG Capsule as directed Orally , Taking Metoprolol Succinate ER 25 MG Tablet Extended Release 24 Hour 1/2 Orally qd , Taking Lysine 1 TABLET 1 TAB(S) ONCE A DAY , Taking Vitamin B-12 1000 MCG Tablet 1 tab(s) orally once a day , Taking Famotidine 40 MG Tablet 1 tablet Orally Once a day , Taking Lipitor 80 MG Tablet 1 tab(s) orally once a day (at bedtime) , Taking Levothyroxine Sodium 50 MCG Tablet TAKE 1 TABLET BY MOUTH EVERY DAY , Taking metFORMIN HCl 1000 MG Tablet TAKE 1 TABLET BY MOUTH DAILY , Taking glipiZIDE 10 MG Tablet 1 tab(s) orally once a day , Not-Taking Mucinex DM 30-600 MG Tablet Extended Release 12 Hour 1 tablet as needed Orally every 12 hrs , Not-Taking Plavix 75 MG Tablet 1 tablet Orally Once a day , Not-Taking Farxiga 10 MG Tablet 1 [...] rash, Alteplase. Objective: * Vitals: W t: 190.4, Temp: 98.4, BP: 118/70, HR: 74, O2 Sat: 98% on RA, Nurse: bennett, Ht: 65, BMI:31.68. * Examination: G eneral Examination: General Appearance: N AD. H EENT: u nremarkable.?Oral cavity: n o lesions, mucosa moist and WNL, no erythema. N joe: s upple, no lymphadenopathy. C hest: n ormal shape and expansion. H eart: R SR , aortic murmur /6. Lungs: c lear to auscultation. A bdomen: soft and nontender, no organomegaly or masses. N eurologic Exam: I ntact, gait normal. S kin: n ormal, no rash. P eripheral pulses: n ormal. B ack: normal, mild dorsal kyphosis. E xtremities: n o leg edema, left thumb with tendonitis. Assessment: * Assessment: 1. T ype 2 diabetes mellitus with other circulatory complications - E11.59 (Primary) 2 . H istory of ST elevation myocardial infarction (STEMI) - I25.2 3 .?Ischemic cardiomyopathy - I25.5 4 . H ypothyroidism - E03.9 5 . E ssential hypertension - I10 Plan: * Treatment: Value Reference Range g lycohemoglobin 6.0% 5 - 6.5 % * Jerrica Martin 05/27/2025 11:3 6:30 AM EDT > Provider reviewed results while patient in office. 2.?Hypothyroidism? Refill Levothyroxine Sodium Tablet, 50 MCG, TAKE 1 TABLET BY MOUTH EVERY DAY, 90, 90 Tablet, Refills 0.??3.?Essential hypertension? Refill Metoprolol Succinate ER Tablet Extended Release 24 Hour, 25 MG, 1/2, Orally, daily, 30, Refills 2.?? * Procedure Codes: G 2211 Complex e/[place], [address] CAPILLARY BLOOD DRAW, 88504 GLYCATED HEMOGLOBIN TEST, Modifiers: QW , 3044F HG A1C LEVEL LT 7.0%, 1036F TOBACCO NON-USER, G8950 PREHTN/HTN BP DOC INDCD F/U DOC, G8752 MOST RECENT SYSTOLIC BP < 140MM HG, G8754 MOST RECENT DIASTOLIC BP < 90MM HG * Follow Up: 6 Months * Images: Billing Information: * Visit Code: 16788 Office Visit, Est Pt., Level 4. * Procedure Codes: G2211 Complex e/[place]. [address] CAPILLARY BLOOD DRAW. 70516 GLYCATED HEMOGLOBIN TEST. Modifiers: QW 3044F HG A1C LEVEL LT 7.0%. 1036F TOBACCO NON-USER. G8950 PREHTN/HTN BP DOC INDCD F/U DOC. G8752 MOST RECENT SYSTOLIC BP < 140MM HG. G8754 MOST RECENT DIASTOLIC BP < 90MM HG. * Electronic signature of Jinny Santos MD on 06/26/2025 at 12:38 PM EDT Sign off status: Pending * Provider: Jinny Santos M.D. Date: 0 05/27/2025 Generated for Marlenei ng/Faprashantg/eTransmitting on: 1 12:38 PM EDT History and Physical Notes * HPI (History of Present Illness) Category Sub-Category Detail Notes Category Not es HPI Patient is here today for Pt is here today for a 4 month check up. Pt sts she has been concerned since finding out she has chronic kidney disease, but sts she has not had any symptoms of this. Pt sts she had labs done last week downstairs at [facility] lab. Pt sts she does need refills on her medications today as well Examination Category Sub-Category Detail Notes Category Not [...]
--- OUTSIDE RECORDS SUMMARY | 2025-05-27 11:20 | XMS_ITS | Encounter Summary ---
Author Organization Healthcare Address [address] [place] [address] Care Team Providers Care Health Administration Teacher Name Role Phone Onesimo Asencio MD Primary Care Provider [phone] Royal Narvaez MD Unavailable Encounter Details Date Type Department Care Team (Latest Contact Info) Description 05/27/2025 11:20 AM EDT - 05/27/2025 11:59 PM EDT Hospital Encounter Cardiac Imaging [address] [place] [address] Implantable loop recorder present Discharge Disposition: Home or Self Care Social [...] drink first t kush in the morning (EYE-GRAVITY PROSPECTING SUPERVISOR) to steady your nerves or to get [...] Description 08/05/2025 11:40 AM EST Office Visit [facility] [place] A[place] [address] [place] [address] Maria Ines Bui MD [address] [place] [address] 02/21/2026 8:20 AM EDT Office Visit [facility] [address] [place] [address] Sadaf Saleh, INFORMATION TECHNOLOGY SECURITY ANALYST [address] [facility] [address] [place] [address] documented as of this encounter Procedures Procedure Name Priority Date/Time Associated Diagnosis Comments CARDIAC DEVICE CHECK - REMOTE - LOOP RECORDER (ILR) Routine 05/27/2025 11:44 AM EDT Implantable loop recorder present documented in this encounter Results * CARDIAC DEVICE CHECK - REMOTE - LOOP RECORDER (ILR) (05/27/2025 11:44 AM EDT) Anatomical Region Laterality Modality Other Narrative 05/27/2025 2:24 PM EDT Implantable loop recorder (ILR) interrogation. Battery remaining in service adequate. EGM's reviewed against indication for implant and diagnosis, found to be unremarkable. Presenting rhythm is sinus. Tachy event, duration 5 seconds, previously reported Lily Ca Elizabet FRAZIER CV IMPLANTABLE CARDIAC DEV ICE PROCEDURES Final Result documented in this encounter Visit Diagnoses Diagnosis Implantable loop recorder present documented in this encounter Additional Health Concerns Assessment Noted Time A fall risk assessment has been complete d for the patient 01/28/2025 2:01 PM EDT A Body Mass Index follow-up plan has been documented for the patient 05/24/2025 10:04 AM EDT documented as of this encounter Care Teams Health Administration Teacher Relationship Specialty Start Date End Date Onesimo Asencio MD [address] [place] [address] PCP - General 01/25/22 Royal Narvaez MD [address] [place] [address] Consulting Physician Neurology 10/28/22 documented as of this encounter
--- OUTSIDE RECORDS SUMMARY | 2025-06-26 12:38 | XMS_ITS | Encounter Summary ---
Author Organization Healthcare Address [address] [place] [address] Care Team Providers Care Equity Manager Name Role Phone Onesimo Asencio MD Primary Care Provider [phone] Royal Narvaez MD Unavailable Encounter Details Date [...] drink first t kush in the morning (EYE-TOP PRINTING PRESS OPERATOR) to steady your nerves or to [...] Description 08/05/2025 11:40 AM EST Office Visit [facility] Byron Akin [address] [place] [address] Maria Ines Bui MD [address] [place] [address] 02/21/2026 8:20 AM EDT Office Visit [facility] [address] [place] [address] Sadaf Saleh, BRANCH OPERATION EVALUATION MANAGER [address] [facility] [address] [place] [address] documented as of this encounter Visit Diagnoses Not on filedocumented in this encounter Additional Health Concerns Assessment Noted Time A fall risk assessment has been complete d for the patient 01/28/2025 2:01 PM EDT A Body Mass Index follow-up plan has been documented for the patient 05/24/2025 10:04 AM EDT documented as of this encounter Care Teams Equity Manager Relationship Specialty Start Date End Date Onesimo Asencio MD [address] [place] [address] PCP - General 01/25/22 Royal Narvaez MD [address] [facility] [address] [place] [address] Consulting Physician Neurology 10/28/22 documented as of this encounter
--- OUTSIDE RECORDS SUMMARY | 2025-06-26 12:39 | XMS_ITS | Clinical Summary ---
Author Organization [facility] Address [address] [place] [address] Care Team Providers Care Test Boring Crew Chief Name Role Phone Onesimo Asencio MD Primary Care Provider [phone] Royal Narvaez MD Unavailable Allergies Active Allergy [...] EDT Hospital Encounter Cardiac Imaging [address] [place] [address] Implantable loop recorder present Discharge Disposition: Home or Self Care 05/27/2025 Travel 05/24/2025 8:20 AM EDT Office Visit [facility] [address] [place] [address] Sadaf Saleh APRN Stage 3a chronic kidney disease ([facility]) (Primary Dx); Coronary artery disease involving chippewa-cree coronary artery of chippewa-cree heart, unspecified whether angina present; Primary hypertension; Diabetes mellitus due to underlying condition with diabetic chronic kidney disease, unspecified CKD stage, unspecified whether penitentiary insulin use ([facility]); Chronic kidney disease-mineral and bone disorder 05/14/2025 4:00 PM EDT - 05/14/2025 11:59 PM EDT Hospital Encounter Cardiac Imaging [address] [place] [address] Encounter for loop recorder check Discharge Disposition: Home or Self Care 05/14/2025 Travel 04/26/2025 2:45 PM EDT - 04/26/2025 11:59 PM EDT Hospital Encounter Cardiac Imaging [address] [place] [address] Encounter for loop recorder check Discharge Disposition: Home or Self Care 04/26/2025 Travel 03/26/2025 9:53 AM EDT - 03/26/2025 11:59 PM EDT Hospital Encounter Cardiac Imaging [address] [place] [address] Encounter for loop recorder check Discharge Disposition: Home or Self Care 03/26/2025 Travel from Last 3 Months Immunizations Immunization Administration Dates Next Due Influenza, High-dose, Split Virus, Trivalent, Injectable, preservative free 08/04/2020 Influenza, Unspecified 08/22/2009 Influenza, high-dose, quadrivalent 06/21/2022,,08/04/2020 Influenza, injectable, quadr ivalent, preservative free 07/20/2023 Influenza, seasonal, injectable 04/17/2010,06/04 Influenza, trivalent, adjuvanted 07/04/2024 [place] COVID-19 Vaccine (Blue Cap) 18+ 11/20/19 21 [...] drink first t kush in the morning (EYE-BROACHING MACHINE OPERATOR) to steady your nerves or to [...] Description 08/05/2025 11:40 AM EST Office Visit [facility] Irving Angwin [address] [facility] [address] [place] [address] Maria Ines Bui MD [address] [place] [address] 02/21/2026 8:20 AM EDT Office Visit [facility] [address] [place] [address] Sadaf Saleh, LIGHTING SPECIALIST [address] [facility] [address] [place] [address] Health Maintenance Due Date Last [...] 01/29/2023 08/01/2022, 01/26/2022 UKY-Depression Screening 10/31/2024 10/31/2023 [id number] Vaccine ( season) 2025 07/04/2024, 07/23/2023, 07/20/2023, [...] y.o. Indication for alert: Tachy event Device: Plumbing Inspector: [employer] implantable cardiac rehab nurse (ICM) Summary: Tachy on 05/07 for 5 seconds, QRS complexes appear wider with change in morphology. See attached report for CIED details Will continue to monitor for further NSVT. Lily Mcneal LIGHTING SPECIALIST CV IMPLANTABLE CARDIAC DEV ICE PROCEDURES Final [...] Adults <6.0% Children and Adolescents <7.5% Source: [place] [employer]. Standards of medical care in diabetes,2017. Diabetes Care.2017:40 (suppl 1):S1-S135. HbA1c assay performed by an ion-exchange chromatography method that is certified traceable to the DCCT. Royal Narvaez MD LAB BLOOD ORDERABLES Final Resul t [facility] [address] [place] [address] * [place] Hepatitis C Antibody (01/26/2022 1:38 AM EDT) Hepatitis C Antibody Negative Negative 01/26/2022 3:14 AM EDT [facility] Blood Venous blood specimen / Unknown Venipuncture / Unknown 01/26/2022 1:38 AM EDT 01/26/2022 1:58 AM EDT us Royal Narvaez MD LAB BLOOD ORDERABLES Final Resul t [facility] [address] [place] [address] from Last 3 Months or Most Recently Relevant to Health Maintenance Insurance MEDICARE [facility] Advance Directives * Full Code (Latest Code Status on File) Date Activated Date Inactivated Comments 01/26/2022 12:42 AM 01/27/2022 5:22 PM Question Answer Comments Patient has decision-making capacity? Yes Care Teams Test Boring Crew Chief Relationship Specialty Start Date End Date Onesimo Asencio MD [address] [place] [address] PCP - General 01/25/22 Royal Narvaez MD [address] [place] [address] Consulting Physician Neurology 10/28/22
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
--- NOTE | 2025-06-26 13:00 | CA_ITS ---
APPROVED REPORT EXAM: Comprehensive 2D, Doppler, and color-flow Echocardiogram Mink Rancher: Letty Simon RVT Ht: 5 ft 6 in Wt: 188lbs BSA: 1.95 BP: 138/77 mmHg Indications: HFrEF,CORONARY ARTERY DISEASE 2D Dimensions IVSd 0.91 cm F: 0.6-1.0 LVEF (Visual) 47.90 % PWd 1.12 cm F: 0.6 - 1.0 LA Volume 34.80 mL LVDd 5.84 cm F: 3.9 - 5.3 LA Volume Index 17.85 mL/m2 (M/F) 16-34 LVDs 4.41 cm F: 2.2 - 3.5 M-Mode Dimensions LA Diam 3.48 cm (1.9-4.0) TAPSE 2.30 (<1.7) LV Diastology E Decel Time 260 (160-240 msec) E/A Ratio 0.5 Aortic Valve JOSEPH Index 1.09 cm2/m2 AoV Peak Jagdish. 173.0 (50-130 cm/s) AO Peak GR. 11.90 mmHg AO Mean GR. 6.70 (<5 mmHg) AO VTI 35.0 (18-25 cm) JOSEPH (VTI) 2.19 (2.5-4.5 cm2) Mitral Valve MV E Max Jagdish. 52.0 (40-130 cm/s) MV A Velocity 107.0 (40-130 cm/s) E/A Ratio 0.49 MV PHT 76.0 ms Pulmonary Valve PV Peak Velocity 98.0 (50-150 cm/s) Left Ventricle The left ventricle is normal size. Left ventricular systolic function is milldy to moderately reduced. There is increased left ventricular wall thickness. There is moderate hypokinesis of the septal and anteroseptal LV arguello. Grade 1 diastolic dysfunction is present. LVEF is 40% Right Ventricle The right ventricle is normal size. The right ventricular systolic function is normal. Atria The left atrium is mildly dilated. The right atrium is mildly dilated. There is no color Doppler evidence of interatrial shunt. Aortic Valve The aortic valve opens well. There is no hemodynamically significant aortic valvular stenosis. Trace aortic regurgitation is present. Mitral Valve The mitral valve is mildly thickened. No evidence of mitral valve stenosis. Mild mitral regurgitation is present. Tricuspid Valve The tricuspid valve leaflets are thin and pliable. Mild tricuspid regurgitation. RVSP is 20-25 mmHg. Pulmonic Valve The pulmonary valve is grossly normal in structure. Trace pulmonic valve regurgitation is present. Great Vessels The aortic root is normal in size. IVC is normal in size and collapses >50% with inspiration. Pericardium There is no pericardial effusion. Other Information Study Quality: Fair Conclusion Mild to moderate reduction in LV systolic function (LVEF 40%). Biatrial dilation. Mild MR, mild TR. Electronically signed by : Xin Uriostegui MD 07/03/2025 16:44:42
== END 2025-06-26 23:59 | disposition home or self-care (01) ==
LOC: RT 12:36
PROVIDERS: PCP Family Medicine; Visit Provider Internal Medicine
DX: I08.1 Rheumatic disorders of both mitral and tricuspid valves (principal); I50.20 Unspecified systolic (congestive) heart failure; I25.10 Atherosclerotic heart disease of native coronary artery without angina pectoris
CPT/HCPCS: 93306